=== PATIENT | male | born 1960 | race Caucasian/White ===

== ENCOUNTER 2024-01-22 09:02 | Outpatient (REF) | payer BC, SELFPAY ==
[2024-01-22 09:18] LABS: MANUAL DIFF FLAG NO
[2024-01-22 09:22] LABS: Basophils Absolute Auto 0.1 X10*3/uL (0.0-0.2); Basophils Percent Auto 0.8 % (0-2); Eosinophils Absolute Auto 0.1 X10*3/uL (0.0-0.4); Eosinophils Percent Auto 1.6 % (0-4); Imm Gran Abs Auto 0.03 X10*3/uL (0.00-0.03); Imm Gran Pct Auto 0.4 % (0.0-0.4); Lymphocytes Absolute Auto 2.2 X10*3/uL (1.2-4.9); Lymphocytes Percent Auto 26.7 % (20-40); Mean Corpuscular HGB Conc 34.5 g/dl (31.0-36.0); Mean Corpuscular Hemoglobin 32.3 pg (27.0-33.0); Mean Corpuscular Volume 93.5 fL (80.0-98.0); Mean Platelet Volume 9.1 fL (9.4-12.4); Monocytes Absolute Auto 0.9 X10*3/uL (0.1-1.2); Monocytes Percent Auto 10.4 % (2-11); Neutrophils Percent Auto 60.1 % (45-73); Platelet Count 209 X10*3/uL (160-400); Red Blood Count 6.26 X10*6/uL (4.60-5.80); Red Cell Distribution Width 13.8 % (11.0-16.0); White Blood Count 8.3 X10*3/uL (4.8-10.8)
[2024-01-22 09:36] LABS: Hematocrit 58.5 % (42.0-52.0); Hemoglobin 20.2 g/dl (14.0-18.0)
[2024-01-22 10:06] LABS: Anion Gap 14 (12-20); Blood Urea Nitrogen 17 mg/dL (9-16); Calcium 9.8 mg/dL (8.4-10.2); Carbon Dioxide 24 mmol/L (22-29); Chloride 103 mmol/L (96-108); Estimated Glomerular Filt Rate > 60; Glucose Random 153 mg/dL (60-115); Potassium 3.8 mmol/L (3.3-5.1); Sodium 137 mmol/L (135-145)
== END 2024-01-22 09:03 | disposition home or self-care (01) ==
LOC: HO.BBR 09:02
PROVIDERS: PCP Internal Medicine; Visit Provider Internal Medicine
DX: D45 Polycythemia vera (principal)
CPT/HCPCS: 36415; 80048; 85014; 85018; 85025; 99195

== ENCOUNTER 2024-04-22 08:52 | Outpatient (REF) | payer BC, SELFPAY ==
[2024-04-22 09:12] LABS: MANUAL DIFF FLAG NO
[2024-04-22 09:15] LABS: Basophils Percent Auto 0.5 % (0-2); Eosinophils Absolute Auto 0.2 X10*3/uL (0.0-0.4); Eosinophils Percent Auto 2.6 % (0-4); Hematocrit 48.4 % (42.0-52.0); Hemoglobin 17.2 g/dl (14.0-18.0); Imm Gran Abs Auto 0.01 X10*3/uL (0.00-0.03); Imm Gran Pct Auto 0.2 % (0.0-0.4); Lymphocytes Absolute Auto 2.2 X10*3/uL (1.2-4.9); Lymphocytes Percent Auto 35.8 % (20-40); Mean Corpuscular HGB Conc 35.5 g/dl (31.0-36.0); Mean Corpuscular Hemoglobin 33.1 pg (27.0-33.0); Mean Corpuscular Volume 93.1 fL (80.0-98.0); Mean Platelet Volume 8.6 fL (9.4-12.4); Monocytes Absolute Auto 0.6 X10*3/uL (0.1-1.2); Monocytes Percent Auto 9.9 % (2-11); Neutrophils Absolute Auto 3.1 x10*3/uL (2.0-8.3); Platelet Count 194 X10*3/uL (160-400)
[2024-04-22 09:46] LABS: Anion Gap 13 (12-20); Blood Urea Nitrogen 25 mg/dL (9-16); Calcium 9.6 mg/dL (8.4-10.2); Carbon Dioxide 25 mmol/L (22-29); Chloride 107 mmol/L (96-108); Estimated Glomerular Filt Rate > 60; Glucose Random 103 mg/dL (60-115); Potassium 3.8 mmol/L (3.3-5.1); Sodium 141 mmol/L (135-145)
== END 2024-04-22 08:53 | disposition home or self-care (01) ==
LOC: HO.BBR 08:52
PROVIDERS: PCP Internal Medicine; Visit Provider Internal Medicine
DX: D45 Polycythemia vera (principal)
CPT/HCPCS: 36415; 80048; 85014; 85018; 85025; 99195

== ENCOUNTER 2024-07-29 09:08 | Outpatient (REF) | payer BC, SELFPAY ==
[2024-07-29 09:21] LABS: MANUAL DIFF FLAG NO
[2024-07-29 09:24] LABS: Basophils Percent Auto 0.5 % (0-2); Eosinophils Absolute Auto 0.2 X10*3/uL (0.0-0.4); Eosinophils Percent Auto 2.6 % (0-4); Hematocrit 47.1 % (42.0-52.0); Hemoglobin 16.9 g/dl (14.0-18.0); Imm Gran Abs Auto 0.02 X10*3/uL (0.00-0.03); Imm Gran Pct Auto 0.3 % (0.0-0.4); Lymphocytes Percent Auto 33.2 % (20-40); Mean Corpuscular HGB Conc 35.9 g/dl (31.0-36.0); Mean Corpuscular Hemoglobin 35.1 pg (27.0-33.0); Mean Corpuscular Volume 97.9 fL (80.0-98.0); Mean Platelet Volume 8.7 fL (9.4-12.4); Monocytes Absolute Auto 0.5 X10*3/uL (0.1-1.2); Monocytes Percent Auto 8.3 % (2-11); Neutrophils Absolute Auto 3.4 x10*3/uL (2.0-8.3); Neutrophils Percent Auto 55.1 % (45-73); Platelet Count 217 X10*3/uL (160-400); Red Blood Count 4.81 X10*6/uL (4.60-5.80); Red Cell Distribution Width 11.4 % (11.0-16.0); White Blood Count 6.1 X10*3/uL (4.8-10.8)
[2024-07-29 09:49] LABS: Anion Gap 12 (12-20); Blood Urea Nitrogen 19 mg/dL (9-16); Calcium 9.2 mg/dL (8.4-10.2); Carbon Dioxide 24 mmol/L (22-29); Chloride 106 mmol/L (96-108); Estimated Glomerular Filt Rate > 60; Glucose Random 196 mg/dL (60-115); Sodium 138 mmol/L (135-145)
== END 2024-07-29 09:09 | disposition home or self-care (01) ==
LOC: HO.BBR 09:08
PROVIDERS: Internal Medicine; PCP Internal Medicine
DX: D45 Polycythemia vera (principal)
CPT/HCPCS: 36415; 80048; 85025; 99195

== ENCOUNTER 2024-11-04 08:53 | Outpatient (REF) | payer BC, SELFPAY ==
[2024-11-04 09:05] LABS: MANUAL DIFF FLAG NO
[2024-11-04 09:07] LABS: Basophils Percent Auto 0.6 % (0-2); Eosinophils Absolute Auto 0.3 X10*3/uL (0.0-0.4); Eosinophils Percent Auto 4.3 % (0-4); Hematocrit 47.8 % (42.0-52.0); Hemoglobin 17.3 g/dl (14.0-18.0); Imm Gran Abs Auto 0.01 X10*3/uL (0.00-0.03); Imm Gran Pct Auto 0.2 % (0.0-0.4); Lymphocytes Absolute Auto 2.6 X10*3/uL (1.2-4.9); Lymphocytes Percent Auto 38.9 % (20-40); Mean Corpuscular HGB Conc 36.2 g/dl (31.0-36.0); Mean Corpuscular Hemoglobin 34.1 pg (27.0-33.0); Mean Corpuscular Volume 94.1 fL (80.0-98.0); Mean Platelet Volume 8.8 fL (9.4-12.4); Monocytes Absolute Auto 0.7 X10*3/uL (0.1-1.2); Monocytes Percent Auto 9.9 % (2-11); Neutrophils Percent Auto 46.1 % (45-73); Platelet Count 228 X10*3/uL (160-400); Red Blood Count 5.08 X10*6/uL (4.60-5.80); Red Cell Distribution Width 11.7 % (11.0-16.0); White Blood Count 6.6 X10*3/uL (4.8-10.8)
--- OUTSIDE RECORDS SUMMARY | 2024-11-04 09:14 | XMS_ITS ---
Author Organization [facility] Address [address] [place] [address] Care Team Providers Care Revenue Field Auditor Name Role Phone KAMALA ZIEGLER Primary Care Provider ESTELITA FRANCO Unavailable [phone] REASON FOR VISIT calcium scoring results Encounters Encounter Location Date Provider Diagnosis [address] [facility] [address] [place] [address] 10/07/2024 ESTELITA FRANCO PLAN OF TREATMENT Next Appt Details Provider Name:ESTELITA FRANCO, 12/08/2024 03:15:00 PM, [address], [address], [place], [address], Progress Notes * DANIELLE LOUIS FDOB:[birth year] (63 yo M)Acc No.[id number]:10/07/2024 Patient:??DANIELLE LOUIS :1960?Age:63 Y?Sex:Yessy montgomery Address:[address] [place] [address] * true * Date:??
--- OUTSIDE RECORDS SUMMARY | 2024-11-04 09:14 | XMS_ITS | Patient Health Record ---
Author Organization [facility] Address [address] [place] [address] Care Team Providers Care Transplant Rn Name Role Phone KAMALA PHOENIX Primary Care Provider [phone] YOLETTE FRANCOEN Unavailable [phone] LEYLA BAPTISTE Unavailable [phone] ALLERGIES No Known Allergies RESULTS Component Value Reference Range Notes CBC With Differential/Platel [id number] Reviewed date:02/27/2024 09:11:58 AM Interpretation: Performing Lab:[facility] [place], [address] [place] [address], [place], Phone - [phone], Director - Rebecca Notes/Report: WBC 6.9 3.4-10.8 x10E3/uL RBC 6.15 4.14-5.80 x10E6/uL Hemoglobin 19.1 13.0-17.7 g/dL Hematocrit 58.5 37.5-51.0 % MCV 95 79-97 fL MCH 31.1 26.6-33.0 pg MCHC 32.6 31.5-35.7 g/dL RDW 14.2 11.6-15.4 % Platelets 235 150-450 x10E3/uL Neutrophils 57 Not Estab. % Lymphs 30 Not Estab. % Monocytes 11 Not Estab. % Eos 2 Not Estab. % Basos 0 Not Estab. % Immature Cells Neutrophils (Absolute) 3.9 1.4-7.0 x10E3/uL Lymphs (Absolute) 2.1 0.7-3.1 x10E3/uL Monocytes(Absolute) 0.8 0.1-0.9 x10E3/uL Eos (Absolute) 0.2 0.0-0.4 x10E3/uL Baso (Absolute) 0.0 0.0-0.2 x10E3/uL Immature Granulocytes 0 Not Estab. % Immature Grans (Abs) 0.0 0.0-0.1 x10E3/uL NRBC Hematology Comments: Testosterone, Total, LC/MS-0 [id number] Reviewed date:02/27/2024 08:56:27 AM Interpretation: Performing Lab:[facility] [place], [address] [facility], Phone - [phone], Director - MDJodry Notes/Report: Testosterone, Total, LC/MS TNP T est not performed. Duplicate tests ordered. Testosterone Free MS/Dialysi [id number] Reviewed date:02/27/2024 09:11:58 AM Interpretation: Performing Lab:[facility] [place], [address] [facility], [place], Phone - [phone], Director - MDJodry Notes/Report: Testosterone, Total 981 This test was developed and its performance characteristics determined by [facility]. It has not been cleared or approved by the Food and Drug Administration. Reference Range: Adult Males >18 years 264 - 916 This [facility] LC/MS-MS method is currently certified by the CDC Hormone Standardization Program (HoST). Adult male reference interval is based on a population of healthy nonobese males (BMI <30) between 19 and 39 years old. Marilyn et.al. JCEM 2017,102;8841-9705 PMID: [id number]. % Free Testosterone (Dialysis) 2.2 This test was developed and its performance characteristics determined by [facility]. It has not been cleared or approved by the Food and Drug Administration. Reference Range: Adult Males: 1.5 - 3.2 Free Testosterone, Serum 216 Reference Range: Adult Males: 52 - 280 REASON FOR REFERRAL No Information MEDICATIONS Medication SIG (Take, Route, Frequency, Duration) Notes Start Date End Date Status cloNIDine HCl 0.1 MG 1 tablet Orally twi ce a day for 90 days 03/08/2024 Active Eszopiclone 2 MG 1 tablet immediately before bedtime Orally at bedtime for 90 days 10/24/2024 Active Fluticasone Propionate 50 MCG/ACT 1 spray in each nostril Nasally Once a day Active LORazepam 0.5 MG 1 tablet Orally Once a day prn for 30 days 06/15/2024 Active CeleBREX 200 MG 1 capsule with food Orally Once a day Active valACYclovir HCl 1 GM TAKE 1 TABLET BY M OUTH EVERY DAY for 90 Active Fluvastatin Sodium ER 80 MG TAKE 1 TABLET BY MOUTH EVERY DAY IN THE EVENING for 90 Active Tadalafil 20 MG TAKE 1 TABLET BY GEORGETTE TH ONCE A DAY NEEDED FOR SEX X 30 DAYS for 30 Active Meloxicam 15 MG 1 tablet Orally Once a day Not-Taking Fish Oil 500 MG 1 capsule Orally Twi ce a day for 30 day(s) Active Montelukast Sodium 10 MG TAKE 1 TABLET B Y MOUTH EVERY DAY IN THE EVENING for 90 Active Aspir-81 81 MG 1 tablet Orally Once a day for 30 day(s) Active Tamsulosin HCl 0.4 MG TAKE 1 CAPSULE BY MOUTH EVERY DAY for 90 Active Multi For Him - as directed Orally Active Pantoprazole Sodium 40 MG TAKE 1 TABLET BY MOUTH EVERY DAY for 90 Active Losartan Potassium 100 MG 1 tablet Orall y Once a day for 90 days 09/21/2024 Active amLODIPine Besylate 10 MG 1 tablet Orall y Once a day for 90 days 03/01/2024 Active Losartan Potassium-HCTZ 100-12.5 MG 1 tablet Orally Once a day for 90 days 03/01/2024 Active Terbinafine Not-Taki ng IMMUNIZATIONS Vaccine Route Administration Date Status Comme nts Flu vaccine no Preserv 3 and > IM Intramuscular 08/26/2022 Administered Flu vaccine no Preserv 3 and > IM Intramuscular 06/14/2024 Administered influenza IM Intramuscular 08/03/2018 Administered influenza IM Intramuscular 05/30/2020 Administered SOCIAL HISTORY Tobacco Use: Social History Observation Description Date Details (start date - stop date) Never Smoker NA - NA Sex Assigned At : Social History Observation Description Sex Assigned At Unknown Tobacco Use/Smoking Question Answer Notes Are you a nonsmoker Section Notes: 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.does not smoke or abuse alcohol 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.does not smoke or abuse alcohol 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.does not smoke or abuse alcohol 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.does not smoke or abuse alcohol 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.does not smoke or abuse alcohol 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.does not smoke or abuse alcohol 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.does not smoke or abuse alcohol 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.does not smoke or abuse alcohol 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.does not smoke or abuse alcohol 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.does not smoke or abuse alcohol 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.does not smoke or abuse alcohol 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.does not smoke or abuse alcohol 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.does not smoke or abuse alcohol 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.does not smoke or abuse alcohol 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.does not smoke or abuse alcohol 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.does not smoke or abuse alcohol 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.does not smoke or abuse alcohol 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.does not smoke or abuse alcohol 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.does not smoke or abuse alcohol 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.does not smoke or abuse alcohol 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.does not smoke or abuse alcohol 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.does not smoke or abuse alcohol 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.does not smoke or abuse alcohol 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.does not smoke or abuse alcohol 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.does not smoke or abuse alcohol PROBLEMS Problem Type ICD Code Onset Dates Problem Status W/U Status Risk SNOMED Code Notes Problem Polycythemia vera (D45) Active confirmed Polycythemia ve ra (003024406) Problem Testicular hypofunction (E29.1) Active confirmed 823487730 Problem Vitamin D deficiency, unspecified (E55.9) Active confirmed Vitamin D deficiency (78739744) Problem Hyperlipidemia, unspecified (E78.5) Active confirmed Hyperlipidemia (80740134) Problem Primary insomnia (F51.01) Active confirmed 5443528 Problem Other insomnia (G47.09) Active confirmed 128687310 Problem Essential (primary) hypertension (I10) Active confirmed Essential hypertension (30058481) Problem Allergic rhinitis, unspecified (J30.9) Active confirmed Allergic rhinit is (54097412) Problem Chronic rhinitis (J31.0) Active confirmed 955494046 Problem Chronic sinusitis, unspecified (J32.9) Active confirmed 38277451 Problem Encounter for general adult medical examination without abnormal findings (Z00.00) Active confirmed 407466769 Problem Encounter for screening for malignant neoplasm of prostate (Z12.5) Active confirmed 406143398 Problem Encounter for screening for malignant neoplasm of skin (Z12.83) Active confirmed 977155613 Problem Encounter for screening for lipoid disorders (Z13.220) Active confirmed Lipid screening (546759025) Problem Adult general medical exam (Z00.00) Active confirmed Adult health examination (607556365) Problem Vitamin D deficiency (E55.9) Active confirmed Vitamin D deficiency (88014355) Problem Hypogonadism male (E29.1) Active confirmed 91189006 Problem Diabetes mellitus screening (Z13.1) Active confirmed Diabetes mellit us screening (818073246) Problem Obstructive sleep apnea (G47.33) Active confirmed 51271497 Problem Encounter for screening for endocrine disorder (Z13.29) Active confirmed Endocrine/metab ol ic screening (234211916) Problem Encounter for prostate cancer screening (Z12.5) Active confirmed Screening for malignant neoplasm of prostate (435668334) Problem Right bundle branch block (RBBB) (I45.10) Active confirmed 27570493 VITAL SIGNS Heart Rate 67 /min 09/21/2024 Oximetry 97 % 09/21/2024 Blood pressure diastolic 82 mm Hg 09/21/2024 Height 79 in 09/21/2024 Blood pressure systolic 140 mm Hg 09/21/2024 Weight 279 lbs 09/21/2024 BMI 31.43 kg/m2 09/21/2024 Encounters Encounter Location Date Provider Diagnosis [facility] [address] [place] [address] 12/15/[address] [facility] [address] [place] [address] 02/24/[address] [facility] [address] [place] [address] 02/25/[address] [facility] [address] [place] [address] 12/25/2023 LEYAL EMILE Essential (primary) hypertension I10 ; Testicular hypofunction E29.1 ; Chronic rhinitis J31.0 ; Other insomnia G47.09 and Elevated hematocrit R71.[address] [facility] [address] [place] [address] 01/01/2024 LEYLA EMILE Essential (primary) hypertension I10 ; Testicular hypofunction E29.1 ; Chronic rhinitis J31.0 ; Other insomnia G47.09 and Elevated hematocrit R71.8 [place] [address] [address] 03/01/2024 TALCHAVA PHOENIX Hypertensive crisis I16.9 ; Obstructive sleep apnea G47.33 ; Prediabetes R73.03 and Other insomnia G47.09 [place] [address] [address] 03/08/2024 TALCHAVA PHOENIX Essential (primary) hypertension I10 ; Hyperlipidemia, unspecified E78.5 ; Prediabetes R73.03 and Chronic pain syndrome G89.4 [place] [address] [address] 04/12/2024 TALCHAVA PHOENIX Hyperlipidemia, unspecified E78.5 ; Prediabetes R73.03 ; Essential (primary) hypertension I10 and Achilles tendinitis, right leg M76.[address] [facility] [address] [facility] [address] [place] [address] 06/14/2024 KAMALA PHOENIX Hyperlipidemia, unspecified E78.5 ; Essential (primary) hypertension I10 ; Encounter for immunization Z23 ; Achilles tendinitis, left leg M76.62 ; Polycythemia vera D45 ; Hypogonadism male E29.1 and Sleep concern Z76.[address] [facility] [address] [facility] [address] [place] [address] 09/21/2024 ESTELITA FRANCO Essential (primary) hypertension I10 ; Testicular hypofunction E29.1 ; Polycythemia vera D45 ; Obstructive sleep apnea G47.33 and Right bundle branch block (RBBB) I45.[address] [facility] [address] [facility] [address] [place] [address] 12/23/2023 LEYLA EMILE [address] [place], [place] 01/01/2024 YOMICHAVA PHOENIX [address] [place] [address] 01/04/[address] [facility] [address] [place] [address] 01/04/[address] [address] [facility] [address] [facility] [address] [place] [address] 01/15/[address] [facility] [address] [facility] [address] [facility] [address] [place] [address] 01/27/[address] [facility] [address] [facility] [address] [place] [address] 02/24/2024 LEYLA EMILE [address] [place] [address] 02/27/[address] [facility] [address] [place] [address] 03/01/[address] [facility] [address] [address] [place] [address] 03/01/[address] [facility] [address] [place] [address] 03/08/2024 TALAL PHOENIX [address] [place] [address] 03/30/2024 TALAL PHOENIX [facility] [address] [place] [address] 04/15/[address] [facility] [address] [facility] [address] [place] [address] 04/18/[address] [facility] [address] [facility] [address] [address] [place] [address] 04/18/2024 TALAL PHOENIX [address] [place] [address] 05/03/2024 TALAL PHOENIX [address] [place] [address] 05/03/[address] [facility] [address] [facility] [address] [place] [address] 06/15/2024 TALAL PHOENIX [address] [place] [address] 07/25/2024 TALAL PHOENIX [address] [place] [address] 10/07/2024 [facility] [address] [place] [address] 10/24/2024 [facility] [address] [place] [address] 10/24/2024 [facility] [facility] [address] [place] [address] 03/04/2024 TALAL PHOENIX ASSESSMENTS Encounter Date Diagnosis Assessment Notes Treatment Notes Treatment Clinical Notes Section Notes 12/25/2023 Testicular hypofunction (ICD-10 - E29.1) Danielle is a 8-year-old male who presents the office for Follow-up via telehealth with questions regarding blood pressure medication. #Testicular hypofunction: Patient getting testosterone from Dr. Montana Perea. Patient taking half a cc twice a week. Patient's testosterone was elevated at 1 point, with elevated hemoglobin and hematocrit. Patient did stop testosterone for a few weeks for his knee replacement, but has now been on it for about a month and a half again. Hemoglobin and hematocrit continue to be elevated. Educated on the risk factors associated with continued testosterone use including clotting etc. patient has been getting 6-month supplies of testosterone at a time. Admits to using Anivar, that he purchased from a gym partner, but is no longer using. But patient is not interested in discontinuation of testosterone. Patient did see Dr. Jos Phoenix, who sent him to Dr. Moe for pancytopenia, Dr. Moe recommended blood draws throughout the year. Patient did try getting phlebotomy but his blood pressure spiked to high so he was started on lorazepam to use as needed and he has not completed phlebotomy yet. Patient is taking aspirin 81 mg. Educated on getting blood work prior to next visit.Patient canceled recent visit. States that he needs to get an order from Dr. Avelina Howell for phlebotomy prior to getting his blood work here. That scheduled for January 03 at 330, will follow-up afterwards. EKG completed prior to preop in June, Patient does have a history of right bundle branch block. #Patient has a history of chronic rhinitis: Recently had nasal septal surgery, with some improvement. #Doing well post left knee surgery, going to physical therapy #Chronic pain: Taking gabapentin 600 mg at night #Patient taking fish oil, low HDL, fluvastatin 80 mg #Hypertension: Taking amlodipine BenzePril. Blood pressure elevated last visit 158/98, increase amlodipine to 10 mg, BenzePril 40 mg. Patient states that since increasing, he has been having more difficulty sleeping, dry mouth, just feels off. Will discontinue medication and switch over to losartan 50 mg. Follow-up in 1 week for blood pressure check, take blood pressures at home. Educated on emergency department criteria/criteria to call the office #BPH: Taking tamsulosin 0.4 mg, tadalafil 20 mg #Anxiety: Takes lorazepam 0.5 mg.Does not need refill, taking as needed, but is admitting to increased blood pressure, more anxiety, and difficulty sleeping. Plans to take more at night. #GERD: Taking pantoprazole 40 mg #Insomnia: Taking Lunesta 2 mg, Melatonin. Still admitting to difficulty sleeping. Will trial hydroxyzine. Educated on proper use, side effects. Patient also takes lorazepam as needed, scheduled for sleep apnea testing On 07 January. #Onychomycosis of bilateral toenails, following with podiatry for cleaning. Using topicals without much improvement. Patient on terbinafine, notes that it is working. On it for 3 months. This is be done by podiatry. Mindful of liver enzymes. #Patient has a history of tanning, recommended routine dermatology follow-up for skin cancer check. Follow-up next Thursday for blood pressure check, sooner as needed. In the meantime working with Dr. Kinsey for phlebotomy/blood draws January 03, and sleep apnea testing on January 07. Patient is seen today via telehealth agreement, with consent of patient In light of current COVID -19 Pandemic I used the following telehealth technology (telephone/[employer]/s [employer]) during this visit This encounter is appropriate and reasonable under the circumstances given the patient's particular presentation. The patient has been advised of the potential risks and limitations of this mode of treatment Including but not limited to the absence of in person physical examination,and has agreed to be treated in a remote fashion in spite of this. Any and all patient questions have been answered. The patient also has been advised to contact this office for worsening conditions or problems and seek medical treatment and/or call 911 if the patient deems either necessary All quetsions answered to patients satisfaction. Patient verbalized understanding of diagnosis and treatments explained. To call sooner prior to next visit it any questions/concerns arise. Case discussed with collaborating physician Arturo Phoenix who reviewed the assessment and plan. Chart, medications, labs, vital signs reviewed. Dictation was accomplished with the use of [employer] voice recognition software, prone to medical misidentifications and grammatical errors. This is unintentional and the practitioner does try to identify and correct these, but some could still be present. Please do not hesitate to contact practitioner for clarification. 12/25/2023 Essential (primary) hypertension (ICD-10 - I10) Danielle is a 8-year-old male who presents the office for Follow-up via telehealth with questions regarding blood pressure medication. #Testicular hypofunction: Patient getting testosterone from Dr. Montana Perea. Patient taking half a cc twice a week. Patient's testosterone was elevated at 1 point, with elevated hemoglobin and hematocrit. Patient did stop testosterone for a few weeks for his knee replacement, but has now been on it for about a month and a half again. Hemoglobin and hematocrit continue to be elevated. Educated on the risk factors associated with continued testosterone use including clotting etc. patient has been getting 6-month supplies of testosterone at a time. Admits to using Anivar, that he purchased from a gym partner, but is no longer using. But patient is not interested in discontinuation of testosterone. Patient did see Dr. Jos Phoenix, who sent him to Dr. Moe for pancytopenia, Dr. Moe recommended blood draws throughout the year. Patient did try getting phlebotomy but his blood pressure spiked to high so he was started on lorazepam to use as needed and he has not completed phlebotomy yet. Patient is taking aspirin 81 mg. Educated on getting blood work prior to next visit.Patient canceled recent visit. States that he needs to get an order from Dr. Avelina Howell for phlebotomy prior to getting his blood work here. That scheduled for January 03 at 330, will follow-up afterwards. EKG completed prior to preop in June, Patient does have a history of right bundle branch block. #Patient has a history of chronic rhinitis: Recently had nasal septal surgery, with some improvement. #Doing well post left knee surgery, going to physical therapy #Chronic pain: Taking gabapentin 600 mg at night #Patient taking fish oil, low HDL, fluvastatin 80 mg #Hypertension: Taking amlodipine BenzePril. Blood pressure elevated last visit 158/98, increase amlodipine to 10 mg, BenzePril 40 mg. Patient states that since increasing, he has been having more difficulty sleeping, dry mouth, just feels off. Will discontinue medication and switch over to losartan 50 mg. Follow-up in 1 week for blood pressure check, take blood pressures at home. Educated on emergency department criteria/criteria to call the office #BPH: Taking tamsulosin 0.4 mg, tadalafil 20 mg #Anxiety: Takes lorazepam 0.5 mg.Does not need refill, taking as needed, but is admitting to increased blood pressure, more anxiety, and difficulty sleeping. Plans to take more at night. #GERD: Taking pantoprazole 40 mg #Insomnia: Taking Lunesta 2 mg, Melatonin. Still admitting to difficulty sleeping. Will trial hydroxyzine. Educated on proper use, side effects. Patient also takes lorazepam as needed, scheduled for sleep apnea testing On 07 January. #Onychomycosis of bilateral toenails, following with podiatry for cleaning. Using topicals without much improvement. Patient on terbinafine, notes that it is working. On it for 3 months. This is be done by podiatry. Mindful of liver enzymes. #Patient has a history of tanning, recommended routine dermatology follow-up for skin cancer check. Follow-up next Thursday for blood pressure check, sooner as needed. In the meantime working with Dr. Kinsey for phlebotomy/blood draws January 03, and sleep apnea testing on January 07. Patient is seen today via telehealth agreement, with consent of patient In light of current COVID -19 Pandemic I used the following telehealth technology (telephone/[employer]/s [employer]) during this visit This encounter is appropriate and reasonable under the circumstances given the patient's particular presentation. The patient has been advised of the potential risks and limitations of this mode of treatment Including but not limited to the absence of in person physical examination,and has agreed to be treated in a remote fashion in spite of this. Any and all patient questions have been answered. The patient also has been advised to contact this office for worsening conditions or problems and seek medical treatment and/or call 911 if the patient deems either necessary All quetsions answered to patients satisfaction. Patient verbalized understanding of diagnosis and treatments explained. To call sooner prior to next visit it any questions/concerns arise. Case discussed with collaborating physician Arturo Phoenix who reviewed the assessment and plan. Chart, medications, labs, vital signs reviewed. Dictation was accomplished with the use of [employer] voice recognition software, prone to medical misidentifications and grammatical errors. This is unintentional and the practitioner does try to identify and correct these, but some could still be present. Please do not hesitate to contact practitioner for clarification. 01/01/2024 Essential (primary) hypertension (ICD-10 - I10) Danielle is a 8-year-old male who presents the office for Follow-up . . Patient is here with his today. #Testicular hypofunction: Patient getting testosterone from Dr. Montana Perea. Patient taking half a cc twice a week. Patient's testosterone was elevated at 1 point, with elevated hemoglobin and hematocrit. Patient did stop testosterone for a few weeks for his knee replacement, but has now been on it for about a month and a half again. Hemoglobin and hematocrit continue to be elevated. Educated on the risk factors associated with continued testosterone use including clotting etc. patient has been getting 6-month supplies of testosterone at a time. Admits to using [employer], that he purchased from a gym partner, but is no longer using. But patient is not interested in discontinuation of testosterone. Patient did see Dr. Jos Phoenix, who sent him to Dr. Moe for pancytopenia, Dr. Moe recommended blood draws throughout the year. Patient did try getting phlebotomy but his blood pressure spiked to high so he was started on lorazepam to use as needed and he has not completed phlebotomy yet. Patient is taking aspirin 81 mg. Patient continues to not get blood work, waiting for an order from Dr. Avelina Howell. Discussed the importance of phlebotomy. Scheduled with him January 03 at 330. EKG completed prior to preop in June, Patient does have a history of right bundle branch block. #Patient has a history of chronic rhinitis: Recently had nasal septal surgery, with some improvement. #Doing well post left knee surgery, going to physical therapy #Chronic pain: Taking gabapentin 600 mg at night prn #Patient taking fish oil, low HDL, fluvastatin 80 mg #Hypertension: Patient was having dry mouth, elevated blood pressure 158/98, was on amlodipine 10, BenzePrl 40. Medication was discontinued, and losartan 50 mg was started. Patient's been taking it with compliance, no side effects. Blood pressure stable/improved in office today 138/88. Does admit to improved headaches. Did have hydrochlorothiazide at home from a previous prescription that was discontinued. States he took it x 1 dose because he felt like he was swollen . No swelling on examination today. Patient states that he was diuresed, and peed a lot of urine at that time.Educate on the importance of taking medications as prescribed. Patient is using blood pressure monitor at home, which is causing elevated blood pressure readings, but the cuff is too small. Educated to get a larger blood pressure cuff on [employer]. #BPH: Taking tamsulosin 0.4 mg, tadalafil 20 mg #Anxiety: Takes lorazepam 0.5 mg.[facility] sent in October. Admits to increased anxiety, more difficulty sleeping.Patient admits to occasionally taking 2 tablets of lorazepam. Discussed that this is against contract, and he needs to take medications as prescribed. #GERD: Taking pantoprazole 40 mg #Insomnia: Taking Lunesta 2 mg, Melatonin. Also taking lorazepam 0.5 mg As well as hydroxyzine. Educated on proper use, side effects. Scheduled for sleep apnea testing on January 07. Discussed that we cannot alter sleep regimen at this time, and patient is on multiple controlled substances. He does admit to sometimes taking 2 pills of lorazepam. Discussed that he needs to take medications as prescribed, and if he fails to do so, we could not refill prescriptions #Onychomycosis of bilateral toenails, following with podiatry for cleaning. Using topicals without much improvement. Patient on terbinafine, notes that it is working. On it for 3 months. This is be done by podiatry. Mindful of liver enzymes. #Patient has a history of tanning, recommended routine dermatology follow-up for skin cancer check. Follow-up in 2 months, will call with concerns in the meantime. Patient to get phlebotomy in the meantime, and sleep apnea testing. All quetsions answered to patients satisfaction. Patient verbalized understanding of diagnosis and treatments explained. To call sooner prior to next visit it any questions/concerns arise. Case discussed with collaborating physician Arturo Phoenix who reviewed the assessment and plan. Chart, medications, labs, vital signs reviewed. Dictation was accomplished with the use of [employer] voice recognition software, prone to medical misidentifications and grammatical errors. This is unintentional and the practitioner does try to identify and correct these, but some could still be present. Please do not hesitate to contact practitioner for clarification. 03/01/2024 Obstructive sleep apnea (ICD-10 - G47.33) This 63-year-old male with multiple medical problems which is a complicated case given the use or overuse of testosterone hypertensive crisis untreated sleep apnea. Patient has also used steroids which were not prescribed by a physician and we did discuss that at length. We set up some boundaries and ground rules on how to use medicines. We collaborated with his testosterone prescribing provider. A plan of care as outlined above including management of hypertension and sleep apnea and follow-up in 1 week 03/01/2024 Hypertensive crisis (ICD-10 - I16.9) This 63-year-old male with multiple medical problems which is a complicated case given the use or overuse of testosterone hypertensive crisis untreated sleep apnea. Patient has also used steroids which were not prescribed by a physician and we did discuss that at length. We set up some boundaries and ground rules on how to use medicines. We collaborated with his testosterone prescribing provider. A plan of care as outlined above including management of hypertension and sleep apnea and follow-up in 1 week 03/08/2024 Hyperlipidemia, unspecified (ICD-10 - E78.5) Patient has been diagnosed with elevated blood pressure discussed that blood pressure values can vary with different measurements. We should go by mean blood pressure values.. Discussed the role of ambulatory blood pressure monitoring. Discussed the role of Qardio blood pressure device system that we have and can help with remote blood pressure monitoring as long as it is covered by insurance and can be measured remotely. Discussed different blood pressure medicines including angiotensin receptor blockers like losartan, calcium channel blockers like amlodipine based beta-blockers like, metoprolol and bisoprolol, diuretics like hydrochlorothiazide,. Spironolactone and furosemide. Discussed the role of diet elimination of refined carbohydrates processed sugars alcohol, standard [place] diet, chips and fast food, role of home cooking, elimination of white bread and high fructose corn syrup and cereals. Discussed wholesome eating, regular exercise, step count and walking to get 10,000 steps a day when possible. Keeping a log of blood pressure and having a physician or physician typewriter assembler titrate blood pressure based on treatment protocols I I have added clonidine to help with anxiety management and also to help with blood pressure management. 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 We should go by mean blood pressure values.. Discussed the role of ambulatory blood pressure monitoring. Discussed the role of Qardio blood pressure device system that we have and can help with remote blood pressure monitoring as long as it is covered by insurance and can be measured remotely. Discussed different blood pressure medicines including angiotensin receptor blockers like losartan, calcium channel blockers like amlodipine based beta-blockers like, metoprolol and bisoprolol, diuretics like hydrochlorothiazide,. Spironolactone and furosemide. Discussed the role of diet elimination of refined carbohydrates processed sugars alcohol, standard [place] diet, chips and fast food, role of home cooking, elimination of white bread and high fructose corn syrup and cereals. Discussed wholesome eating, regular exercise, step count and walking to get 10,000 steps a day when possible. Keeping a log of blood pressure and having a physician or physician typewriter assembler titrate blood pressure based on treatment protocols I I have added clonidine to help with anxiety management and also to help with blood pressure management. 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 We should go by mean blood pressure values.. Discussed the role of ambulatory blood pressure monitoring. Discussed the role of Qardio blood pressure device system that we have and can help with remote blood pressure monitoring as long as it is covered by insurance and can be measured remotely. Discussed different blood pressure medicines including angiotensin receptor blockers like losartan, calcium channel blockers like amlodipine based beta-blockers like, metoprolol and bisoprolol, diuretics like hydrochlorothiazide,. Spironolactone and furosemide. Discussed the role of diet elimination of refined carbohydrates processed sugars alcohol, standard [place] diet, chips and fast food, role of home cooking, elimination of white bread and high fructose corn syrup and cereals. Discussed wholesome eating, regular exercise, step count and walking to get 10,000 steps a day when possible. Keeping a log of blood pressure and having a physician or physician typewriter assembler titrate blood pressure based on treatment protocols 04/12/2024 Prediabetes (ICD-10 - R73.03) Patient has been diagnosed with elevated blood pressure discussed that blood pressure values can vary with different measurements. We should go by mean blood pressure values.. Discussed the role of ambulatory blood pressure monitoring. Discussed the role of Qardio blood pressure device system that we have and can help with remote blood pressure monitoring as long as it is covered by insurance and can be measured remotely. Discussed different blood pressure medicines including angiotensin receptor blockers like losartan, calcium channel blockers like amlodipine based beta-blockers like, metoprolol and bisoprolol, diuretics like hydrochlorothiazide,. Spironolactone and furosemide. Discussed the role of diet elimination of refined carbohydrates processed sugars alcohol, standard [place] diet, chips and fast food, role of home cooking, elimination of white bread and high fructose corn syrup and cereals. Discussed wholesome eating, regular exercise, step count and walking to get 10,000 steps a day when possible. Keeping a log of blood pressure and having a physician or physician typewriter assembler titrate blood pressure based on treatment protocols 06/14/2024 Hyperlipidemia, unspecified (ICD-10 - E78.5) Hx of HTN - 118/90 today in office. Continue medication adherence with losartan/HCTZ, amlodipine, and clonidine. Hx of HLD - patient is adherent to statin therapy. Continue medication and healthy eating. Hx of achilles tendonitis - currently using celebrex, doing well. Continue tates stretching and doing light exercise. Hx polycythemia vera - follows-up with seismograph supervisor for phlebotomy. Last treatment was April, next is Jul.22. Uses lorazepam prior to phlebotomy due to anxiety. Continue regimen. Hx of trouble sleeping - Continue with eszopiclone and Relaxium OTC. Educated patient on sleep hygeine: dark room, white noise, creating a bedtime routine, no electronics before bed, only use bed for sleeping. Hx of hypogonadism - patient recently had to stop testosterone replacement due to hypertension. Currently on enclomiphene citrate 12.5mg x2 tabs once daily - prescribed by Dr. Pendleton at [facility]. Patient is most likely feeling more anxious and emotional d/t enclomiphene citrate. Plan at this time is to continue current regimen and follow-up with functional medicine, given emotional state, would recommend discontinuing medication. Continue exercise regimen as well as healthy eating. Flu shot given today. Patient is set to follow up 3 months. 06/14/2024 Essential (primary) hypertension (ICD-10 - I10) Hx of HTN - 118/90 today in office. Continue medication adherence with losartan/HCTZ, amlodipine, and clonidine. Hx of HLD - patient is adherent to statin therapy. Continue medication and healthy eating. Hx of achilles tendonitis - currently using celebrex, doing well. Continue tates stretching and doing light exercise. Hx polycythemia vera - follows-up with seismograph supervisor for phlebotomy. Last treatment was April, next is Jul.22. Uses lorazepam prior to phlebotomy due to anxiety. Continue regimen. Hx of trouble sleeping - Continue with eszopiclone and Relaxium OTC. Educated patient on sleep hygeine: dark room, white noise, creating a bedtime routine, no electronics before bed, only use bed for sleeping. Hx of hypogonadism - patient recently had to stop testosterone replacement due to hypertension. Currently on enclomiphene citrate 12.5mg x2 tabs once daily - prescribed by Dr. Pendleton at [facility]. Patient is most likely feeling more anxious and emotional d/t enclomiphene citrate. Plan at this time is to continue current regimen and follow-up with functional medicine, given emotional state, would recommend discontinuing medication. Continue exercise regimen as well as healthy eating. Flu shot given today. Patient is set to follow up 3 months. 09/21/2024 Testicular hypofunction (ICD-10 - E29.1) Most recent hemoglobin is downtrending He gets therapeutic draws at [facility] Will get updated comprehensive labs including CBC with differential Will get an echocardiogram given his history of RBBB and hypertension Will get a coronary calcium CT score as it has been 8 years Previous was 0 and clean in 2018 Losartan monotherapy along with amlodipine as well as clonidine I have instructed him to check his blood pressures at home closely and we will adjust if needed Of note, some information is being carried forward from prior records for informational purposes only and is being cited so that efficiency, safety and quality of the patient's care is not compromised This note was prepared using voice recognition software and direct typing Please excuse inadvertent clinical informaticist or typing errors, or uncorrected word substitutions Although every attempt has been made by the provider to proofread this document, occasional misspellings and typographical errors may still be present Due to the previous pandemic, and the use of personal protective equipment (PPE) This may decrease voice recognition accuracy Inadvertent clinical informaticist errors may occur 09/21/2024 Essential (primary) hypertension (ICD-10 - I10) Most recent hemoglobin is downtrending He gets therapeutic draws at [facility] Will get updated comprehensive labs including CBC with differential Will get an echocardiogram given his history of RBBB and hypertension Will get a coronary calcium CT score as it has been 8 years Previous was 0 and clean in 2018 Losartan monotherapy along with amlodipine as well as clonidine I have instructed him to check his blood pressures at home closely and we will adjust if needed Of note, some information is being carried forward from prior records for informational purposes only and is being cited so that efficiency, safety and quality of the patient's care is not compromised This note was prepared using voice recognition software and direct typing Please excuse inadvertent clinical informaticist or typing errors, or uncorrected word substitutions Although every attempt has been made by the provider to proofread this document, occasional misspellings and typographical errors may still be present Due to the previous pandemic, and the use of personal protective equipment (PPE) This may decrease voice recognition accuracy Inadvertent clinical informaticist errors may occur 09/21/2024 Polycythemia vera (ICD-10 - D45) Most recent hemoglobin is downtrending He gets therapeutic draws at [facility] Will get updated comprehensive labs including CBC with differential Will get an echocardiogram given his history of RBBB and hypertension Will get a coronary calcium CT score as it has been 8 years Previous was 0 and clean in 2018 Losartan monotherapy along with amlodipine as well as clonidine I have instructed him to check his blood pressures at home closely and we will adjust if needed Of note, some information is being carried forward from prior records for informational purposes only and is being cited so that efficiency, safety and quality of the patient's care is not compromised This note was prepared using voice recognition software and direct typing Please excuse inadvertent clinical informaticist or typing errors, or uncorrected word substitutions Although every attempt has been made by the provider to proofread this document, occasional misspellings and typographical errors may still be present Due to the previous pandemic, and the use of personal protective equipment (PPE) This may decrease voice recognition accuracy Inadvertent clinical informaticist errors may occur 06/14/2024 Achilles tendinitis, left leg (ICD-10 - M76.62) Hx of HTN - 118/90 today in office. Continue medication adherence with losartan/HCTZ, amlodipine, and clonidine. Hx of HLD - patient is adherent to statin therapy. Continue medication and healthy eating. Hx of achilles tendonitis - currently using celebrex, doing well. Continue tates stretching and doing light exercise. Hx polycythemia vera - follows-up with seismograph supervisor for phlebotomy. Last treatment was April, next is Jul.22. Uses lorazepam prior to phlebotomy due to anxiety. Continue regimen. Hx of trouble sleeping - Continue with eszopiclone and Relaxium OTC. Educated patient on sleep hygeine: dark room, white noise, creating a bedtime routine, no electronics before bed, only use bed for sleeping. Hx of hypogonadism - patient recently had to stop testosterone replacement due to hypertension. Currently on enclomiphene citrate 12.5mg x2 tabs once daily - prescribed by Dr. Pendleton at [facility]. Patient is most likely feeling more anxious and emotional d/t enclomiphene citrate. Plan at this time is to continue current regimen and follow-up with functional medicine, given emotional state, would recommend discontinuing medication. Continue exercise regimen as well as healthy eating. Flu shot given today. Patient is set to follow up 3 months. 06/14/2024 Encounter for immunization (ICD-10 - Z23) Hx of HTN - 118/90 today in office. Continue medication adherence with losartan/HCTZ, amlodipine, and clonidine. Hx of HLD - patient is adherent to statin therapy. Continue medication and healthy eating. Hx of achilles tendonitis - currently using celebrex, doing well. Continue tates stretching and doing light exercise. Hx polycythemia vera - follows-up with seismograph supervisor for phlebotomy. Last treatment was April, next is Jul.22. Uses lorazepam prior to phlebotomy due to anxiety. Continue regimen. Hx of trouble sleeping - Continue with eszopiclone and Relaxium OTC. Educated patient on sleep hygeine: dark room, white noise, creating a bedtime routine, no electronics before bed, only use bed for sleeping. Hx of hypogonadism - patient recently had to stop testosterone replacement due to hypertension. Currently on enclomiphene citrate 12.5mg x2 tabs once daily - prescribed by Dr. Pendleton at [facility]. Patient is most likely feeling more anxious and emotional d/t enclomiphene citrate. Plan at this time is to continue current regimen and follow-up with functional medicine, given emotional state, would recommend discontinuing medication. Continue exercise regimen as well as healthy eating. Flu shot given today. Patient is set to follow up 3 months. 04/12/2024 Essential (primary) hypertension (ICD-10 - I10) Patient has been diagnosed with elevated blood pressure discussed that blood pressure values can vary with different measurements. We should go by mean blood pressure values.. Discussed the role of ambulatory blood pressure monitoring. Discussed the role of Qardio blood pressure device system that we have and can help with remote blood pressure monitoring as long as it is covered by insurance and can be measured remotely. Discussed different blood pressure medicines including angiotensin receptor blockers like losartan, calcium channel blockers like amlodipine based beta-blockers like, metoprolol and bisoprolol, diuretics like hydrochlorothiazide,. Spironolactone and furosemide. Discussed the role of diet elimination of refined carbohydrates processed sugars alcohol, standard [place] diet, chips and fast food, role of home cooking, elimination of white bread and high fructose corn syrup and cereals. Discussed wholesome eating, regular exercise, step count and walking to get 10,000 steps a day when possible. Keeping a log of blood pressure and having a physician or physician typewriter assembler titrate blood pressure based on treatment protocols 03/08/2024 Prediabetes (ICD-10 - R73.03) Patient has been diagnosed with elevated blood pressure discussed that blood pressure values can vary with different measurements. We should go by mean blood pressure values.. Discussed the role of ambulatory blood pressure monitoring. Discussed the role of Qardio blood pressure device system that we have and can help with remote blood pressure monitoring as long as it is covered by insurance and can be measured remotely. Discussed different blood pressure medicines including angiotensin receptor blockers like losartan, calcium channel blockers like amlodipine based beta-blockers like, metoprolol and bisoprolol, diuretics like hydrochlorothiazide,. Spironolactone and furosemide. Discussed the role of diet elimination of refined carbohydrates processed sugars alcohol, standard [place] diet, chips and fast food, role of home cooking, elimination of white bread and high fructose corn syrup and cereals. Discussed wholesome eating, regular exercise, step count and walking to get 10,000 steps a day when possible. Keeping a log of blood pressure and having a physician or physician typewriter assembler titrate blood pressure based on treatment protocols I I have added clonidine to help with anxiety management and also to help with blood pressure management. 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 Patient has also used steroids which were not prescribed by a physician and we did discuss that at length. We set up some boundaries and ground rules on how to use medicines. We collaborated with his testosterone prescribing provider. A plan of care as outlined above including management of hypertension and sleep apnea and follow-up in 1 week 01/01/2024 Testicular hypofunction (ICD-10 - E29.1) Danielle is a 8-year-old male who presents the office for Follow-up . . Patient is here with his today. #Testicular hypofunction: Patient getting testosterone from Dr. Montana Perea. Patient taking half a cc twice a week. Patient's testosterone was elevated at 1 point, with elevated hemoglobin and hematocrit. Patient did stop testosterone for a few weeks for his knee replacement, but has now been on it for about a month and a half again. Hemoglobin and hematocrit continue to be elevated. Educated on the risk factors associated with continued testosterone use including clotting etc. patient has been getting 6-month supplies of testosterone at a time. Admits to using Anivar, that he purchased from a gym partner, but is no longer using. But patient is not interested in discontinuation of testosterone. Patient did see Dr. Jos Phoenix, who sent him to Dr. Moe for pancytopenia, Dr. Moe recommended blood draws throughout the year. Patient did try getting phlebotomy but his blood pressure spiked to high so he was started on lorazepam to use as needed and he has not completed phlebotomy yet. Patient is taking aspirin 81 mg. Patient continues to not get blood work, waiting for an order from Dr. Avelina Cooley Discussed the importance of phlebotomy. Scheduled with him January 03 at 330. EKG completed prior to preop in June, Patient does have a history of right bundle branch block. #Patient has a history of chronic rhinitis: Recently had nasal septal surgery, with some improvement. #Doing well post left knee surgery, going to physical therapy #Chronic pain: Taking gabapentin 600 mg at night prn #Patient taking fish oil, low HDL, fluvastatin 80 mg #Hypertension: Patient was having dry mouth, elevated blood pressure 158/98, was on amlodipine 10, BenzePrl 40. Medication was discontinued, and losartan 50 mg was started. Patient's been taking it with compliance, no side effects. Blood pressure stable/improved in office today 138/88. Does admit to improved headaches. Did have hydrochlorothiazide at home from a previous prescription that was discontinued. States he took it x 1 dose because he felt like he was swollen . No swelling on examination today. Patient states that he was diuresed, and peed a lot of urine at that time.Educate on the importance of taking medications as prescribed. Patient is using blood pressure monitor at home, which is causing elevated blood pressure readings, but the cuff is too small. Educated to get a larger blood pressure cuff on [employer]. #BPH: Taking tamsulosin 0.4 mg, tadalafil 20 mg #Anxiety: Takes lorazepam 0.5 mg.[facility] sent in October. Admits to increased anxiety, more difficulty sleeping.Patient admits to occasionally taking 2 tablets of lorazepam. Discussed that this is against contract, and he needs to take medications as prescribed. #GERD: Taking pantoprazole 40 mg #Insomnia: Taking Lunesta 2 mg, Melatonin. Also taking lorazepam 0.5 mg As well as hydroxyzine. Educated on proper use, side effects. Scheduled for sleep apnea testing on January 07. Discussed that we cannot alter sleep regimen at this time, and patient is on multiple controlled substances. He does admit to sometimes taking 2 pills of lorazepam. Discussed that he needs to take medications as prescribed, and if he fails to do so, we could not refill prescriptions #Onychomycosis of bilateral toenails, following with podiatry for cleaning. Using topicals without much improvement. Patient on terbinafine, notes that it is working. On it for 3 months. This is be done by podiatry. Mindful of liver enzymes. #Patient has a history of tanning, recommended routine dermatology follow-up for skin cancer check. Follow-up in 2 months, will call with concerns in the meantime. Patient to get phlebotomy in the meantime, and sleep apnea testing. All quetsions answered to patients satisfaction. Patient verbalized understanding of diagnosis and treatments explained. To call sooner prior to next visit it any questions/concerns arise. Case discussed with collaborating physician Atruro Phoenix who reviewed the assessment and plan. Chart, medications, labs, vital signs reviewed. Dictation was accomplished with the use of [employer] voice recognition software, prone to medical misidentifications and grammatical errors. This is unintentional and the practitioner does try to identify and correct these, but some could still be present. Please do not hesitate to contact practitioner for clarification. 12/25/2023 Chronic rhinitis (ICD-10 - J31.0) Danielle is a 8-year-old male who presents the office for Follow-up via telehealth with questions regarding blood pressure medication. #Testicular hypofunction: Patient getting testosterone from Dr. Montana Perea. Patient taking half a cc twice a week. Patient's testosterone was elevated at 1 point, with elevated hemoglobin and hematocrit. Patient did stop testosterone for a few weeks for his knee replacement, but has now been on it for about a month and a half again. Hemoglobin and hematocrit continue to be elevated. Educated on the risk factors associated with continued testosterone use including clotting etc. patient has been getting 6-month supplies of testosterone at a time. Admits to using Anivar, that he purchased from a gym partner, but is no longer using. But patient is not interested in discontinuation of testosterone. Patient did see Dr. Jos Phoenix, who sent him to Dr. Moe for pancytopenia, Dr. Moe recommended blood draws throughout the year. Patient did try getting phlebotomy but his blood pressure spiked to high so he was started on lorazepam to use as needed and he has not completed phlebotomy yet. Patient is taking aspirin 81 mg. Educated on getting blood work prior to next visit.Patient canceled recent visit. States that he needs to get an order from Dr. Avelina Howell for phlebotomy prior to getting his blood work here. That scheduled for January 03 at 330, will follow-up afterwards. EKG completed prior to preop in June, Patient does have a history of right bundle branch block. #Patient has a history of chronic rhinitis: Recently had nasal septal surgery, with some improvement. #Doing well post left knee surgery, going to physical therapy #Chronic pain: Taking gabapentin 600 mg at night #Patient taking fish oil, low HDL, fluvastatin 80 mg #Hypertension: Taking amlodipine BenzePril. Blood pressure elevated last visit 158/98, increase amlodipine to 10 mg, BenzePril 40 mg. Patient states that since increasing, he has been having more difficulty sleeping, dry mouth, just feels off. Will discontinue medication and switch over to losartan 50 mg. Follow-up in 1 week for blood pressure check, take blood pressures at home. Educated on emergency department criteria/criteria to call the office #BPH: Taking tamsulosin 0.4 mg, tadalafil 20 mg #Anxiety: Takes lorazepam 0.5 mg.Does not need refill, taking as needed, but is admitting to increased blood pressure, more anxiety, and difficulty sleeping. Plans to take more at night. #GERD: Taking pantoprazole 40 mg #Insomnia: Taking Lunesta 2 mg, Melatonin. Still admitting to difficulty sleeping. Will trial hydroxyzine. Educated on proper use, side effects. Patient also takes lorazepam as needed, scheduled for sleep apnea testing On 07 January. #Onychomycosis of bilateral toenails, following with podiatry for cleaning. Using topicals without much improvement. Patient on terbinafine, notes that it is working. On it for 3 months. This is be done by podiatry. Mindful of liver enzymes. #Patient has a history of tanning, recommended routine dermatology follow-up for skin cancer check. Follow-up next Thursday for blood pressure check, sooner as needed. In the meantime working with Dr. Kinsey for phlebotomy/blood draws January 03, and sleep apnea testing on January 07. Patient is seen today via telehealth agreement, with consent of patient In light of current COVID -19 Pandemic I used the following telehealth technology (telephone/[employer] during this visit This encounter is appropriate and reasonable under the circumstances given the patient's particular presentation. The patient has been advised of the potential risks and limitations of this mode of treatment Including but not limited to the absence of in person physical examination,and has agreed to be treated in a remote fashion in spite of this. Any and all patient questions have been answered. The patient also has been advised to contact this office for worsening conditions or problems and seek medical treatment and/or call 911 if the patient deems either necessary All quetsions answered to patients satisfaction. Patient verbalized understanding of diagnosis and treatments explained. To call sooner prior to next visit it any questions/concerns arise. Case discussed with collaborating physician Arturo Phoenix who reviewed the assessment and plan. Chart, medications, labs, vital signs reviewed. Dictation was accomplished with the use of [employer] voice recognition software, prone to medical misidentifications and grammatical errors. This is unintentional and the practitioner does try to identify and correct these, but some could still be present. Please do not hesitate to contact practitioner for clarification. 01/01/2024 Chronic rhinitis (ICD-10 - J31.0) Danielle is a 8-year-old male who presents the office for Follow-up . . Patient is here with his today. #Testicular hypofunction: Patient getting testosterone from Dr. Montana Perea. Patient taking half a cc twice a week. Patient's testosterone was elevated at 1 point, with elevated hemoglobin and hematocrit. Patient did stop testosterone for a few weeks for his knee replacement, but has now been on it for about a month and a half again. Hemoglobin and hematocrit continue to be elevated. Educated on the risk factors associated with continued testosterone use including clotting etc. patient has been getting 6-month supplies of testosterone at a time. Admits to using Anivar, that he purchased from a gym partner, but is no longer using. But patient is not interested in discontinuation of testosterone. Patient did see Dr. Jos Phoenix, who sent him to Dr. Moe for pancytopenia, Dr. Moe recommended blood draws throughout the year. Patient did try getting phlebotomy but his blood pressure spiked to high so he was started on lorazepam to use as needed and he has not completed phlebotomy yet. Patient is taking aspirin 81 mg. Patient continues to not get blood work, waiting for an order from Dr. Avelina Howell. Discussed the importance of phlebotomy. Scheduled with him January 03 at 330. EKG completed prior to preop in June, Patient does have a history of right bundle branch block. #Patient has a history of chronic rhinitis: Recently had nasal septal surgery, with some improvement. #Doing well post left knee surgery, going to physical therapy #Chronic pain: Taking gabapentin 600 mg at night prn #Patient taking fish oil, low HDL, fluvastatin 80 mg #Hypertension: Patient was having dry mouth, elevated blood pressure 158/98, was on amlodipine 10, BenzePrl 40. Medication was discontinued, and losartan 50 mg was started. Patient's been taking it with compliance, no side effects. Blood pressure stable/improved in office today 138/88. Does admit to improved headaches. Did have hydrochlorothiazide at home from a previous prescription that was discontinued. States he took it x 1 dose because he felt like he was swollen . No swelling on examination today. Patient states that he was diuresed, and peed a lot of urine at that time.Educate on the importance of taking medications as prescribed. Patient is using blood pressure monitor at home, which is causing elevated blood pressure readings, but the cuff is too small. Educated to get a larger blood pressure cuff on [employer]. #BPH: Taking tamsulosin 0.4 mg, tadalafil 20 mg #Anxiety: Takes lorazepam 0.5 mg.[facility]ing [facility], last prescription sent in October. Admits to increased anxiety, more difficulty sleeping.Patient admits to occasionally taking 2 tablets of lorazepam. Discussed that this is against contract, and he needs to take medications as prescribed. #GERD: Taking pantoprazole 40 mg #Insomnia: Taking Lunesta 2 mg, Melatonin. Also taking lorazepam 0.5 mg As well as hydroxyzine. Educated on proper use, side effects. Scheduled for sleep apnea testing on January 07. Discussed that we cannot alter sleep regimen at this time, and patient is on multiple controlled substances. He does admit to sometimes taking 2 pills of lorazepam. Discussed that he needs to take medications as prescribed, and if he fails to do so, we could not refill prescriptions #Onychomycosis of bilateral toenails, following with podiatry for cleaning. Using topicals without much improvement. Patient on terbinafine, notes that it is working. On it for 3 months. This is be done by podiatry. Mindful of liver enzymes. #Patient has a history of tanning, recommended routine dermatology follow-up for skin cancer check. Follow-up in 2 months, will call with concerns in the meantime. Patient to get phlebotomy in the meantime, and sleep apnea testing. All quetsions answered to patients satisfaction. Patient verbalized understanding of diagnosis and treatments explained. To call sooner prior to next visit it any questions/concerns arise. Case discussed with collaborating physician Arturo Phoenix who reviewed the assessment and plan. Chart, medications, labs, vital signs reviewed. Dictation was accomplished with the use of [employer] voice recognition software, prone to medical misidentifications and grammatical errors. This is unintentional and the practitioner does try to identify and correct these, but some could still be present. Please do not hesitate to contact practitioner for clarification. 12/25/2023 Other insomnia (ICD-10 - G47.09) Danielle is a 8-year-old male who presents the office for Follow-up via telehealth with questions regarding blood pressure medication. #Testicular hypofunction: Patient getting testosterone from Dr. Montana Perea. Patient taking half a cc twice a week. Patient's testosterone was elevated at 1 point, with elevated hemoglobin and hematocrit. Patient did stop testosterone for a few weeks for his knee replacement, but has now been on it for about a month and a half again. Hemoglobin and hematocrit continue to be elevated. Educated on the risk factors associated with continued testosterone use including clotting etc. patient has been getting 6-month supplies of testosterone at a time. Admits to using Anivar, that he purchased from a gym partner, but is no longer using. But patient is not interested in discontinuation of testosterone. Patient did see Dr. Jos Phoenix, who sent him to Dr. Moe for pancytopenia, Dr. Moe recommended blood draws throughout the year. Patient did try getting phlebotomy but his blood pressure spiked to high so he was started on lorazepam to use as needed and he has not completed phlebotomy yet. Patient is taking aspirin 81 mg. Educated on getting blood work prior to next visit.Patient canceled recent visit. States that he needs to get an order from Dr. Avelina Howell for phlebotomy prior to getting his blood work here. That scheduled for January 03 at 330, will follow-up afterwards. EKG completed prior to preop in June, Patient does have a history of right bundle branch block. #Patient has a history of chronic rhinitis: Recently had nasal septal surgery, with some improvement. #Doing well post left knee surgery, going to physical therapy #Chronic pain: Taking gabapentin 600 mg at night #Patient taking fish oil, low HDL, fluvastatin 80 mg #Hypertension: Taking amlodipine BenzePril. Blood pressure elevated last visit 158/98, increase amlodipine to 10 mg, BenzePril 40 mg. Patient states that since increasing, he has been having more difficulty sleeping, dry mouth, just feels off. Will discontinue medication and switch over to losartan 50 mg. Follow-up in 1 week for blood pressure check, take blood pressures at home. Educated on emergency department criteria/criteria to call the office #BPH: Taking tamsulosin 0.4 mg, tadalafil 20 mg #Anxiety: Takes lorazepam 0.5 mg.Does not need refill, taking as needed, but is admitting to increased blood pressure, more anxiety, and difficulty sleeping. Plans to take more at night. #GERD: Taking pantoprazole 40 mg #Insomnia: Taking Lunesta 2 mg, Melatonin. Still admitting to difficulty sleeping. Will trial hydroxyzine. Educated on proper use, side effects. Patient also takes lorazepam as needed, scheduled for sleep apnea testing On 07 January. #Onychomycosis of bilateral toenails, following with podiatry for cleaning. Using topicals without much improvement. Patient on terbinafine, notes that it is working. On it for 3 months. This is be done by podiatry. Mindful of liver enzymes. #Patient has a history of tanning, recommended routine dermatology follow-up for skin cancer check. Follow-up next Thursday for blood pressure check, sooner as needed. In the meantime working with Dr. Kinsey for phlebotomy/blood draws January 03, and sleep apnea testing on January 07. Patient is seen today via telehealth agreement, with consent of patient In light of current COVID -19 Pandemic I used the following telehealth technology (telephone/[employer] during this visit This encounter is appropriate and reasonable under the circumstances given the patient's particular presentation. The patient has been advised of the potential risks and limitations of this mode of treatment Including but not limited to the absence of in person physical examination,and has agreed to be treated in a remote fashion in spite of this. Any and all patient questions have been answered. The patient also has been advised to contact this office for worsening conditions or problems and seek medical treatment and/or call 911 if the patient deems either necessary All quetsions answered to patients satisfaction. Patient verbalized understanding of diagnosis and treatments explained. To call sooner prior to next visit it any questions/concerns arise. Case discussed with collaborating physician Arturo Phoenix who reviewed the assessment and plan. Chart, medications, labs, vital signs reviewed. Dictation was accomplished with the use of [employer] voice recognition software, prone to medical misidentifications and grammatical errors. This is unintentional and the practitioner does try to identify and correct these, but some could still be present. Please do not hesitate to contact practitioner for clarification. 03/01/2024 Other insomnia (ICD-10 - G47.09) This 63-year-old male with multiple medical problems which is a complicated case given the use or overuse of testosterone hypertensive crisis untreated sleep apnea. Patient has also used steroids which were not prescribed by a physician and we did discuss that at length. We set up some boundaries and ground rules on how to use medicines. We collaborated with his testosterone prescribing provider. A plan of care as outlined above including management of hypertension and sleep apnea and follow-up in 1 week 03/08/2024 Chronic pain syndrome (ICD-10 - G89.4) Patient has been diagnosed with elevated blood pressure discussed that blood pressure values can vary with different measurements. We should go by mean blood pressure values.. Discussed the role of ambulatory blood pressure monitoring. Discussed the role of Qardio blood pressure device system that we have and can help with remote blood pressure monitoring as long as it is covered by insurance and can be measured remotely. Discussed different blood pressure medicines including angiotensin receptor blockers like losartan, calcium channel blockers like amlodipine based beta-blockers like, metoprolol and bisoprolol, diuretics like hydrochlorothiazide,. Spironolactone and furosemide. Discussed the role of diet elimination of refined carbohydrates processed sugars alcohol, standard [place] diet, chips and fast food, role of home cooking, elimination of white bread and high fructose corn syrup and cereals. Discussed wholesome eating, regular exercise, step count and walking to get 10,000 steps a day when possible. Keeping a log of blood pressure and having a physician or physician typewriter assembler titrate blood pressure based on treatment protocols I I have added clonidine to help with anxiety management and also to help with blood pressure management. Unfortunately, he has been abusing his testosterone and I have discussed this with his functional provider I also discussed with his seismograph supervisor and he will have phlebotomy draws will follow-up in a few months 04/12/2024 Achilles tendinitis, right leg (ICD-10 - M76.61) Patient has been diagnosed with elevated blood pressure discussed that blood pressure values can vary with different measurements. We should go by mean blood pressure values.. Discussed the role of ambulatory blood pressure monitoring. Discussed the role of [employer] blood pressure device system that we have and can help with remote blood pressure monitoring as long as it is covered by insurance and can be measured remotely. Discussed different blood pressure medicines including angiotensin receptor blockers like losartan, calcium channel blockers like amlodipine based beta-blockers like, metoprolol and bisoprolol, diuretics like hydrochlorothiazide,. Spironolactone and furosemide. Discussed the role of diet elimination of refined carbohydrates processed sugars alcohol, standard [place] diet, chips and fast food, role of home cooking, elimination of white bread and high fructose corn syrup and cereals. Discussed wholesome eating, regular exercise, step count and walking to get 10,000 steps a day when possible. Keeping a log of blood pressure and having a physician or physician typewriter assembler titrate blood pressure based on treatment protocols 06/14/2024 Polycythemia vera (ICD-10 - D45) Hx of HTN - 118/90 today in office. Continue medication adherence with losartan/HCTZ, amlodipine, and clonidine. Hx of HLD - patient is adherent to statin therapy. Continue medication and healthy eating. Hx of achilles tendonitis - currently using celebrex, doing well. Continue tates stretching and doing light exercise. Hx polycythemia vera - follows-up with seismograph supervisor for phlebotomy. Last treatment was April, next is Jul.22. Uses lorazepam prior to phlebotomy due to anxiety. Continue regimen. Hx of trouble sleeping - Continue with eszopiclone and Relaxium OTC. Educated patient on sleep hygeine: dark room, white noise, creating a bedtime routine, no electronics before bed, only use bed for sleeping. Hx of hypogonadism - patient recently had to stop testosterone replacement due to hypertension. Currently on enclomiphene citrate 12.5mg x2 tabs once daily - prescribed by Dr. Pendleton at [facility]. Patient is most likely feeling more anxious and emotional d/t enclomiphene citrate. Plan at this time is to continue current regimen and follow-up with functional medicine, given emotional state, would recommend discontinuing medication. Continue exercise regimen as well as healthy eating. Flu shot given today. Patient is set to follow up 3 months. 09/21/2024 Obstructive sleep apnea (ICD-10 - G47.33) Most recent hemoglobin is downtrending He gets therapeutic draws at [facility] Will get updated comprehensive labs including CBC with differential Will get an echocardiogram given his history of RBBB and hypertension Will get a coronary calcium CT score as it has been 8 years Previous was 0 and clean in 2018 Losartan monotherapy along with amlodipine as well as clonidine I have instructed him to check his blood pressures at home closely and we will adjust if needed Of note, some information is being carried forward from prior records for informational purposes only and is being cited so that efficiency, safety and quality of the patient's care is not compromised This note was prepared using voice recognition software and direct typing Please excuse inadvertent clinical informaticist or typing errors, or uncorrected word substitutions Although every attempt has been made by the provider to proofread this document, occasional misspellings and typographical errors may still be present Due to the previous pandemic, and the use of personal protective equipment (PPE) This may decrease voice recognition accuracy Inadvertent clinical informaticist errors may occur 09/21/2024 Right bundle branch block (RBBB) (ICD-10 - I45.10) Most recent hemoglobin is downtrending He gets therapeutic draws at [facility] Will get updated comprehensive labs including CBC with differential Will get an echocardiogram given his history of RBBB and hypertension Will get a coronary calcium CT score as it has been 8 years Previous was 0 and clean in 2018 Losartan monotherapy along with amlodipine as well as clonidine I have instructed him to check his blood pressures at home closely and we will adjust if needed Of note, some information is being carried forward from prior records for informational purposes only and is being cited so that efficiency, safety and quality of the patient's care is not compromised This note was prepared using voice recognition software and direct typing Please excuse inadvertent clinical informaticist or typing errors, or uncorrected word substitutions Although every attempt has been made by the provider to proofread this document, occasional misspellings and typographical errors may still be present Due to the previous pandemic, and the use of personal protective equipment (PPE) This may decrease voice recognition accuracy Inadvertent clinical informaticist errors may occur 06/14/2024 Hypogonadism male (ICD-10 - E29.1) Hx of HTN - 118/90 today in office. Continue medication adherence with losartan/HCTZ, amlodipine, and clonidine. Hx of HLD - patient is adherent to statin therapy. Continue medication and healthy eating. Hx of achilles tendonitis - currently using celebrex, doing well. Continue tates stretching and doing light exercise. Hx polycythemia vera - follows-up with seismograph supervisor for phlebotomy. Last treatment was April, next is Jul.22. Uses lorazepam prior to phlebotomy due to anxiety. Continue regimen. Hx of trouble sleeping - Continue with eszopiclone and Relaxium OTC. Educated patient on sleep hygeine: dark room, white noise, creating a bedtime routine, no electronics before bed, only use bed for sleeping. Hx of hypogonadism - patient recently had to stop testosterone replacement due to hypertension. Currently on enclomiphene citrate 12.5mg x2 tabs once daily - prescribed by Dr. Pendleton at [facility]. Patient is most likely feeling more anxious and emotional d/t enclomiphene citrate. Plan at this time is to continue current regimen and follow-up with functional medicine, given emotional state, would recommend discontinuing medication. Continue exercise regimen as well as healthy eating. Flu shot given today. Patient is set to follow up 3 months. 01/01/2024 Other insomnia (ICD-10 - G47.09) Danielle is a 8-year-old male who presents the office for Follow-up . . Patient is here with his today. #Testicular hypofunction: Patient getting testosterone from Dr. Montana Perea. Patient taking half a cc twice a week. Patient's testosterone was elevated at 1 point, with elevated hemoglobin and hematocrit. Patient did stop testosterone for a few weeks for his knee replacement, but has now been on it for about a month and a half again. Hemoglobin and hematocrit continue to be elevated. Educated on the risk factors associated with continued testosterone use including clotting etc. patient has been getting 6-month supplies of testosterone at a time. Admits to using Anivar, that he purchased from a gym partner, but is no longer using. But patient is not interested in discontinuation of testosterone. Patient did see Dr. Jos Phoenix, who sent him to Dr. Moe for pancytopenia, Dr. Moe recommended blood draws throughout the year. Patient did try getting phlebotomy but his blood pressure spiked to high so he was started on lorazepam to use as needed and he has not completed phlebotomy yet. Patient is taking aspirin 81 mg. Patient continues to not get blood work, waiting for an order from Dr. Avelina Cooley Discussed the importance of phlebotomy. Scheduled with him January 03 at 330. EKG completed prior to preop in June, Patient does have a history of right bundle branch block. #Patient has a history of chronic rhinitis: Recently had nasal septal surgery, with some improvement. #Doing well post left knee surgery, going to physical therapy #Chronic pain: Taking gabapentin 600 mg at night prn #Patient taking fish oil, low HDL, fluvastatin 80 mg #Hypertension: Patient was having dry mouth, elevated blood pressure 158/98, was on amlodipine 10, BenzePrl 40. Medication was discontinued, and losartan 50 mg was started. Patient's been taking it with compliance, no side effects. Blood pressure stable/improved in office today 138/88. Does admit to improved headaches. Did have hydrochlorothiazide at home from a previous prescription that was discontinued. States he took it x 1 dose because he felt like he was swollen . No swelling on examination today. Patient states that he was diuresed, and peed a lot of urine at that time.Educate on the importance of taking medications as prescribed. Patient is using blood pressure monitor at home, which is causing elevated blood pressure readings, but the cuff is too small. Educated to get a larger blood pressure cuff on [employer]. #BPH: Taking tamsulosin 0.4 mg, tadalafil 20 mg #Anxiety: Takes lorazepam 0.[address] [facility] reviewed, last prescription sent in October. Admits to increased anxiety, more difficulty sleeping.Patient admits to occasionally taking 2 tablets of lorazepam. Discussed that this is against contract, and he needs to take medications as prescribed. #GERD: Taking pantoprazole 40 mg #Insomnia: Taking Lunesta 2 mg, Melatonin. Also taking lorazepam 0.5 mg As well as hydroxyzine. Educated on proper use, side effects. Scheduled for sleep apnea testing on January 07. Discussed that we cannot alter sleep regimen at this time, and patient is on multiple controlled substances. He does admit to sometimes taking 2 pills of lorazepam. Discussed that he needs to take medications as prescribed, and if he fails to do so, we could not refill prescriptions #Onychomycosis of bilateral toenails, following with podiatry for cleaning. Using topicals without much improvement. Patient on terbinafine, notes that it is working. On it for 3 months. This is be done by podiatry. Mindful of liver enzymes. #Patient has a history of tanning, recommended routine dermatology follow-up for skin cancer check. Follow-up in 2 months, will call with concerns in the meantime. Patient to get phlebotomy in the meantime, and sleep apnea testing. All quetsions answered to patients satisfaction. Patient verbalized understanding of diagnosis and treatments explained. To call sooner prior to next visit it any questions/concerns arise. Case discussed with collaborating physician Arturo Phoenix who reviewed the assessment and plan. Chart, medications, labs, vital signs reviewed. Dictation was accomplished with the use of [employer] voice recognition software, prone to medical misidentifications and grammatical errors. This is unintentional and the practitioner does try to identify and correct these, but some could still be present. Please do not hesitate to contact practitioner for clarification. 12/25/2023 Elevated hematocrit (ICD-10 - R71.8) Danielle is a 8-year-old male who presents the office for Follow-up via telehealth with questions regarding blood pressure medication. #Testicular hypofunction: Patient getting testosterone from Dr. Montana Perea. Patient taking half a cc twice a week. Patient's testosterone was elevated at 1 point, with elevated hemoglobin and hematocrit. Patient did stop testosterone for a few weeks for his knee replacement, but has now been on it for about a month and a half again. Hemoglobin and hematocrit continue to be elevated. Educated on the risk factors associated with continued testosterone use including clotting etc. patient has been getting 6-month supplies of testosterone at a time. Admits to using Anivar, that he purchased from a gym partner, but is no longer using. But patient is not interested in discontinuation of testosterone. Patient did see Dr. Jos Phoenix, who sent him to Dr. Moe for pancytopenia, Dr. Moe recommended blood draws throughout the year. Patient did try getting phlebotomy but his blood pressure spiked to high so he was started on lorazepam to use as needed and he has not completed phlebotomy yet. Patient is taking aspirin 81 mg. Educated on getting blood work prior to next visit.Patient canceled recent visit. States that he needs to get an order from Dr. Avelina Howell for phlebotomy prior to getting his blood work here. That scheduled for January 03 at 330, will follow-up afterwards. EKG completed prior to preop in June, Patient does have a history of right bundle branch block. #Patient has a history of chronic rhinitis: Recently had nasal septal surgery, with some improvement. #Doing well post left knee surgery, going to physical therapy #Chronic pain: Taking gabapentin 600 mg at night #Patient taking fish oil, low HDL, fluvastatin 80 mg #Hypertension: Taking amlodipine BenzePril. Blood pressure elevated last visit 158/98, increase amlodipine to 10 mg, BenzePril 40 mg. Patient states that since increasing, he has been having more difficulty sleeping, dry mouth, just feels off. Will discontinue medication and switch over to losartan 50 mg. Follow-up in 1 week for blood pressure check, take blood pressures at home. Educated on emergency department criteria/criteria to call the office #BPH: Taking tamsulosin 0.4 mg, tadalafil 20 mg #Anxiety: Takes lorazepam 0.5 mg.Does not need refill, taking as needed, but is admitting to increased blood pressure, more anxiety, and difficulty sleeping. Plans to take more at night. #GERD: Taking pantoprazole 40 mg #Insomnia: Taking Lunesta 2 mg, Melatonin. Still admitting to difficulty sleeping. Will trial hydroxyzine. Educated on proper use, side effects. Patient also takes lorazepam as needed, scheduled for sleep apnea testing On 07 January. #Onychomycosis of bilateral toenails, following with podiatry for cleaning. Using topicals without much improvement. Patient on terbinafine, notes that it is working. On it for 3 months. This is be done by podiatry. Mindful of liver enzymes. #Patient has a history of tanning, recommended routine dermatology follow-up for skin cancer check. Follow-up next Thursday for blood pressure check, sooner as needed. In the meantime working with Dr. Kinsey for phlebotomy/blood draws January 03, and sleep apnea testing on January 07. Patient is seen today via telehealth agreement, with consent of patient In light of current COVID -19 Pandemic I used the following telehealth technology (telephone/[employer] during this visit This encounter is appropriate and reasonable under the circumstances given the patient's particular presentation. The patient has been advised of the potential risks and limitations of this mode of treatment Including but not limited to the absence of in person physical examination,and has agreed to be treated in a remote fashion in spite of this. Any and all patient questions have been answered. The patient also has been advised to contact this office for worsening conditions or problems and seek medical treatment and/or call 911 if the patient deems either necessary All quetsions answered to patients satisfaction. Patient verbalized understanding of diagnosis and treatments explained. To call sooner prior to next visit it any questions/concerns arise. Case discussed with collaborating physician Arturo Phoenix who reviewed the assessment and plan. Chart, medications, labs, vital signs reviewed. Dictation was accomplished with the use of [employer] voice recognition software, prone to medical misidentifications and grammatical errors. This is unintentional and the practitioner does try to identify and correct these, but some could still be present. Please do not hesitate to contact practitioner for clarification. 01/01/2024 Elevated hematocrit (ICD-10 - R71.8) Danielle is a 8-year-old male who presents the office for Follow-up . . Patient is here with his today. #Testicular hypofunction: Patient getting testosterone from Dr. Montana Perea. Patient taking half a cc twice a week. Patient's testosterone was elevated at 1 point, with elevated hemoglobin and hematocrit. Patient did stop testosterone for a few weeks for his knee replacement, but has now been on it for about a month and a half again. Hemoglobin and hematocrit continue to be elevated. Educated on the risk factors associated with continued testosterone use including clotting etc. patient has been getting 6-month supplies of testosterone at a time. Admits to using Anivar, that he purchased from a gym partner, but is no longer using. But patient is not interested in discontinuation of testosterone. Patient did see Dr. Jos Phoenix, who sent him to Dr. Moe for pancytopenia, Dr. Moe recommended blood draws throughout the year. Patient did try getting phlebotomy but his blood pressure spiked to high so he was started on lorazepam to use as needed and he has not completed phlebotomy yet. Patient is taking aspirin 81 mg. Patient continues to not get blood work, waiting for an order from Dr. Avelina Cooley Discussed the importance of phlebotomy. Scheduled with him January 03 at 330. EKG completed prior to preop in June, Patient does have a history of right bundle branch block. #Patient has a history of chronic rhinitis: Recently had nasal septal surgery, with some improvement. #Doing well post left knee surgery, going to physical therapy #Chronic pain: Taking gabapentin 600 mg at night prn #Patient taking fish oil, low HDL, fluvastatin 80 mg #Hypertension: Patient was having dry mouth, elevated blood pressure 158/98, was on amlodipine 10, BenzePrl 40. Medication was discontinued, and losartan 50 mg was started. Patient's been taking it with compliance, no side effects. Blood pressure stable/improved in office today 138/88. Does admit to improved headaches. Did have hydrochlorothiazide at home from a previous prescription that was discontinued. States he took it x 1 dose because he felt like he was swollen . No swelling on examination today. Patient states that he was diuresed, and peed a lot of urine at that time.Educate on the importance of taking medications as prescribed. Patient is using blood pressure monitor at home, which is causing elevated blood pressure readings, but the cuff is too small. Educated to get a larger blood pressure cuff on [employer]. #BPH: Taking tamsulosin 0.4 mg, tadalafil 20 mg #Anxiety: Takes lorazepam 0.[address] [facility] reviewed, last prescription sent in October. Admits to increased anxiety, more difficulty sleeping.Patient admits to occasionally taking 2 tablets of lorazepam. Discussed that this is against contract, and he needs to take medications as prescribed. #GERD: Taking pantoprazole 40 mg #Insomnia: Taking Lunesta 2 mg, Melatonin. Also taking lorazepam 0.5 mg As well as hydroxyzine. Educated on proper use, side effects. Scheduled for sleep apnea testing on January 07. Discussed that we cannot alter sleep regimen at this time, and patient is on multiple controlled substances. He does admit to sometimes taking 2 pills of lorazepam. Discussed that he needs to take medications as prescribed, and if he fails to do so, we could not refill prescriptions #Onychomycosis of bilateral toenails, following with podiatry for cleaning. Using topicals without much improvement. Patient on terbinafine, notes that it is working. On it for 3 months. This is be done by podiatry. Mindful of liver enzymes. #Patient has a history of tanning, recommended routine dermatology follow-up for skin cancer check. Follow-up in 2 months, will call with concerns in the meantime. Patient to get phlebotomy in the meantime, and sleep apnea testing. All quetsions answered to patients satisfaction. Patient verbalized understanding of diagnosis and treatments explained. To call sooner prior to next visit it any questions/concerns arise. Case discussed with collaborating physician Arturo Phoenix who reviewed the assessment and plan. Chart, medications, labs, vital signs reviewed. Dictation was accomplished with the use of [employer] voice recognition software, prone to medical misidentifications and grammatical errors. This is unintentional and the practitioner does try to identify and correct these, but some could still be present. Please do not hesitate to contact practitioner for clarification. 06/14/2024 Sleep concern (ICD-10 - Z76.89) Hx of HTN - 118/90 today in office. Continue medication adherence with losartan/HCTZ, amlodipine, and clonidine. Hx of HLD - patient is adherent to statin therapy. Continue medication and healthy eating. Hx of achilles tendonitis - currently using celebrex, doing well. Continue tates stretching and doing light exercise. Hx polycythemia vera - follows-up with seismograph supervisor for phlebotomy. Last treatment was April, next is Jul.22. Uses lorazepam prior to phlebotomy due to anxiety. Continue regimen. Hx of trouble sleeping - Continue with eszopiclone and Relaxium OTC. Educated patient on sleep hygeine: dark room, white noise, creating a bedtime routine, no electronics before bed, only use bed for sleeping. Hx of hypogonadism - patient recently had to stop testosterone replacement due to hypertension. Currently on enclomiphene citrate 12.5mg x2 tabs once daily - prescribed by Dr. Pendleton at [facility]. Patient is most likely feeling more anxious and emotional d/t enclomiphene citrate. Plan at this time is to continue current regimen and follow-up with functional medicine, given emotional state, would recommend discontinuing medication. Continue exercise regimen as well as healthy eating. Flu shot given today. Patient is set to follow up 3 months. PLAN OF TREATMENT Pending Test Test Name Order Date Lipid Panel 04/26/2020 Comp. Metabolic Panel (14) 04/26/2020 PSA Total+ Free 04/26/2020 CBC 04/26/2020 Urinalysis 04/26/2020 EKG 11/07/2020 EKG 04/01/2018 CBC (COMPLETE BLOOD COUNT) 09/02/2018 COMPREHENSIVE METABOLIC PANEL 09/02/2018 LIPID PANEL 09/02/2018 PSA, SCREEN 09/02/2018 PSA, SCREEN 09/21/2024 PSA, SCREEN 10/20/2019 TESTOSTERONE, FREE AND TOTAL (MALES >15 YRS OLD) 03/24/2023 URINALYSIS, COMPLETE 09/02/2018 Comprehensive Metabolic Panel 04/01/2018 Lipid Panel 04/01/2018 Cologuard 04/21/2019 Cologuard 08/26/2022 LIPID PANEL, STANDARD 08/26/2022 LIPID PANEL, STANDARD 08/17/2023 LIPID PANEL, STANDARD 06/20/2021 LIPID PANEL, STANDARD 02/04/2022 LIPID PANEL, STANDARD 03/24/2023 LIPID PANEL, STANDARD 09/21/2024 COMPREHENSIVE METABOLIC PANEL 09/21/2024 COMPREHENSIVE METABOLIC PANEL 03/24/2023 COMPREHENSIVE METABOLIC PANEL 02/04/2022 COMPREHENSIVE METABOLIC PANEL 08/17/2023 COMPREHENSIVE METABOLIC PANEL 08/26/2022 COMPREHENSIVE METABOLIC PANEL 06/20/2021 CBC (INCLUDES DIFF/PLT) 06/20/2021 CBC (INCLUDES DIFF/PLT) 08/26/2022 CBC (INCLUDES DIFF/PLT) 05/26/2023 CBC (INCLUDES DIFF/PLT) 02/04/2022 CBC (INCLUDES DIFF/PLT) 03/24/2023 CBC (INCLUDES DIFF/PLT) 09/21/2024 CBC (INCLUDES DIFF/PLT) 10/19/2023 URINALYSIS, COMPLETE 03/24/2023 URINALYSIS, COMPLETE 09/21/2024 URINALYSIS, COMPLETE 02/04/2022 URINALYSIS, COMPLETE 06/20/2021 HEMOGLOBIN A1c 09/21/2024 PSA (FREE AND TOTAL) 02/04/2022 PSA, TOTAL 03/24/2023 TSH 09/21/2024 VITAMIN D,25-OH,TOTAL,IA 09/21/2024 VITAMIN D,25-OH,TOTAL,IA 08/26/2022 TESTOSTERONE, TOTAL, MS 05/26/2023 TESTOSTERONE, FREE (DIALYSIS) AND TOTAL, MS 10/19/2023 US Renal 02/04/2022 Next Appt Details Provider Name:ESTELITA FRANCO, 12/08/2024 03:15:00 PM, [address] [facility], [address], [place], [address], Insurance Providers Payer Name Payer Address Payer Phone Subscriber Number Group Number Insured Name Patient Relationship to Insured Coverage Start Date Coverage End Date [employer] of [place] [address] [place] [address] [phone] [id number] DANIELLE LOUIS Self - patient is the insured MEDICATIONS ADMINISTERED Medication Instructions Date of Administration Dosage Notes MICC B12 INJECTION 08/26/2022 [id number] MEDICAL (GENERAL) HISTORY Medical History History ICD Code anxiety asthma erectile dysfunction esophageal reflux herpes simplex hyperlipidemia hypertension right bundle branch block (RBBB) Surgical History Surgery Date(Month/Year) back surgery Both ACL repaired nasal septal deviation repair March 2023 right achilles tendon repair right knee replaced Jun 2022 left knee replaced June 2023 Hospitalization History Reason Date(Month/Year) for surgery
--- OUTSIDE RECORDS SUMMARY | 2024-11-04 09:14 | XMS_ITS ---
Author Organization [facility] Address [address] [place] [address] Care Team Providers Care Audit Machine Operator Name Role Phone KAMALA ZIEGLER Primary Care Provider ESTELITA FRANCO [phone] MEDICATIONS Medication SIG (Take, Route, Fr equency, Duration) Notes Start Date End Date Status Eszopiclone 2 MG 1 tablet immediately before bedtime Orally at bedtime for 90 days 10/24/2024 Ac tive Encounters Encounter Location Date Provider Diagnosis [address] [facility] [address] [place] [address] 10/24/2024 ESTELITA FRANCO PLAN OF TREATMENT Medication Medication Name Sig Start Date Stop Date Notes Eszopiclone 2 MG 1 tablet immediately before bedtime Orally at bedtime for 90 days 10/24/2024 Next Appt Details Provider Name:ESTELITA FRANCO, 12/08/2024 03:15:00 PM, [address] [facility], [address], [place], [address], Progress Notes * DANIELLE LOUIS FDOB:[birth year] (63 yo M)Acc No.[id number]:10/24/2024 Patient:??DANIELLE LOUIS :1960?Age:63 Y?Sex:Yessy montgomery Address:[address] [place] [address] * Refills?? Refill Eszopiclone Tablet, 2 MG, Orally, 90, 1 tablet immediately before bedtime, at bedtime, 90 days, Refills=1 * true * Date:??
--- OUTSIDE RECORDS SUMMARY | 2024-11-04 09:14 | XMS_ITS | Clinical Summary ---
Author Organization [facility] Address [address] [place] [address] Care Team Providers Care Overedge Sewer Name Role Phone Juancarlos Phoenix MD Primary Care Provider + [phone] Allergies Active Allergy Reactions Criticality Noted Date Comments Other 01/04/2024 enviromental - allergy injections Medications Medication Sig Dispensed Refills Start Date End Date Status losartan (COZAAR) tablet 50 mg Take 1 tablet (50 mg total) by mouth daily. 0 Active pantoprazole (PROTONIX) [address] 1 packet (40 mg total) into G Tube every morning on an empty stomach. 0 Active valACYclovir (Valtrex) 1000 MG tablet Take 1 tablet (1,000 mg total) by mouth 2 (two) times a day. 0 Active montelukast (SINGULAIR) 10 MG tablet Take 1 tablet (10 mg total) by mouth every night at bedtime. 0 Active tamsulosin (FLOMAX) 0.4 MG CAPS Take 1 capsule (0.4 mg total) by mouth daily. 0 Active eszopiclone (LUNESTA) 2 MG TABS Take 1 tablet (2 mg total) by mouth every night at bedtime. Take immediately before bedtime 0 Active fluvastatin XL (LESCOL XL) 80 MG 24 hr tablet Take 1 tablet (80 mg total) by mouth daily. 0 Active celecoxib (CeleBREX) 200 MG capsule Take 1 capsule (200 mg total) by mouth daily. 0 Active amLODIPine-atorvasta tin (CADUET) 10-20 MG per tablet Take 1 tablet by mouth daily. 0 Active Active Problems No known active problems Social History Tobacco Use Types Packs/Day Years Used Date Smoking Tobacco: Never Assessed Sex and Gender Information Value Date Recorded Sex Assigned at Male 05/07/2023 12:17 PM EDT Gender Identity Not on file Sexual Orientation Not on file Job Start Date Occupation Industry Not on file Not on file Not on file Last Filed Vital Signs Vital Sign Reading Time Taken Comments Blood Pressure 183/90 01/04/2024 3:28 PM EDT THURSDAY WAS 134/84 ---MEDICATION CHANGE FROM AMLODIPINE 40MG TO LOSARTAN 50MG Pulse 81 01/04/2024 3:28 PM EDT Temperature 36.8 ??C (98.2 ??F) 01/04/2024 3 :28 PM EDT Respiratory Rate - - Oxygen Saturation 96% 01/04/2024 3:2 8 PM EDT Inhaled Oxygen Concentration - - Weight 129.5 kg (285 lb 9.6 oz) 01/04/2024 3:28 PM EDT Height 200.7 cm (6' 7 ) 01/04/2024 3:28 PM EDT Body Mass Index 32.17 01/04/2024 3:28 PM EDT Plan of Treatment Health Maintenance Due Date Last Done Comments Hepatitis C Screening 1962 COVID-19 Vaccine (#1) 12/03/1967 Pneumococcal Vaccine (1 of 2 - PCV) 1968 Depression Screening 1974 Preventative Health Evaluation 1980 DTap / Tdap / Td (1 - Tdap) 1981 Shingrix-Zoster Vaccine (1 of 2) 1981 Colon Cancer Screening (Colonoscopy) 12/03/2007 Influenza Vaccine (#1) 2024 RSV Adult > 60+ Yrs or Pregn ant (1 - 1-dose 75+ series) 2037 Hepatitis B Vaccines Aged Out No long er eligible based on patient's age to complete this topic RSV Ped < 20 months Aged Out No longe r eligible based on patient's age to complete this topic Care Teams Overedge Sewer Relationship Specialty Start Date End Date Juancarlos Phoenix MD [address] [place] [address] PCP - General Internal Medicine 04/05/18
--- OUTSIDE RECORDS SUMMARY | 2024-11-04 09:15 | XMS_ITS ---
Author Organization [facility] Address [address] [place] [address] Care Team Providers Care Brim Pouncer Name Role Phone KAMALA ZIEGLER Primary Care Provider ESTELITA FRANCO Unavailable [phone] REASON FOR VISIT Refills MEDICATIONS Medication SIG (Take, Route, Fr equency, Duration) Notes Start Date End Date Status Eszopiclone 2 MG 1 tablet immediately before bedtime Orally at bedtime for 90 days 04/18/2024 Ac tive Encounters Encounter Location Date Provider Diagnosis [facility] [address] [place] [id number] 10/24/2024 ESTELITA FRANCO PLAN OF TREATMENT Medication Medication Name Sig Start Date Stop Date Notes Eszopiclone 2 MG 1 tablet immediately before bedtime Orally at bedtime for 90 days 04/18/2024 Next Appt Details Provider Name:ESTELITA FRANCO, 12/08/2024 03:15:00 PM, [address] [place] [address], [phone], Progress Notes * DANIELLE LOUIS FDOB:[birth year] (63 yo M)Acc No.[id number]:10/24/2024 Patient:??DANIELLE LOUIS :1960?Age:63 Y?Sex:Yessy montgomery Address:[address] [place] [address] * Refills?? Refill Eszopiclone Tablet, 2 MG, Orally, 90, 1 tablet immediately before bedtime, at bedtime, 90 days, Refills=1 * true * Date:??
--- OUTSIDE RECORDS SUMMARY | 2024-11-04 09:15 | XMS_ITS | Clinical Summary ---
Author Organization [address] [place] [address] [place] [phone] Phone Care Team Providers Care Divorce Attorney Name Role Phone Juancarlos Phoenix MD Primary Care Provider [phone] Allergies Active Allergy Reactions Criticality Noted Date Comments Other 01/04/2024 enviromental - allergy injections Medications amLODIPine-ator vastatin (CADUET) 10-20 mg per tablet Take 1 tablet by mouth 1 (one) time each day. Active celecoxib (CeleBREX) 200 mg capsule Take 1 capsule (200 mg total) by mouth 1 (one) time each day. Active eszopiclone (LUNESTA) 2 mg tablet Take 1 tablet (2 mg total) by mouth every night at bedtime. Take immediately before bedtime Active fluvastatin XL (LESCOL XL) 80 mg 24 hr tablet Take 1 tablet (80 mg total) by mouth 1 (one) time each day. Active losartan (COZAAR) 50 mg tablet Take 1 tablet (50 mg total) by mouth 1 (one) time each day. Active montelukast (SINGULAIR) 10 mg tablet Take 1 tablet (10 mg total) by mouth every night at bedtime. Active pantoprazole (PROTONIX) [address] 1 packet (40 mg total) into G Tube every morning on an empty stomach. Active tamsulosin (FLOMAX) 0.4 mg 24 hr capsule Take 1 capsule (0.4 mg total) by mouth 1 (one) time each day. Active valACYclovir (VALTREX) 1 gram tablet Take 1 tablet (1,000 mg total) by mouth 2 (two) times a day. Active Social History Tobacco Use Types Packs/Day Years Used Date Smoking Tobacco: Never Assessed Sex and Gender Information Value Date Recorded Sex Assigned at Not on file Legal Sex Male 7:13 AM EST Gender Identity Not on file Sexual Orientation Not on file Obstetrics History Last Filed Vital Signs Vital Sign Reading Time Taken Comments Blood Pressure 183/90 01/04/2024 3:28 PM EDT Sitting Right arm Pulse 81 01/04/2024 3:28 PM EDT Temperature - - Respiratory Rate - - Oxygen Saturation - - Inhaled Oxygen Concentration - - Weight 130 kg (285 lb 9.6 oz) 01/04/2024 3:28 PM EDT Height 200.7 cm (6' 7 ) 01/04/2024 3:28 PM EDT Body Mass Index 32.17 01/04/2024 3:28 PM EDT Plan of Treatment Upcoming Encounters Date Type Department Care Team (Late st Contact Info) Description 12/20/2024 3:30 PM EDT Ancillary Procedure [facility] [address] [place] [address] 01/04/2025 3:30 PM EDT Office Visit [facility] Hematology Oncology [address] [place] [phone] Geremias Moe MD [address] [place] [address] Health Maintenance Due Date Last Done Comments COVID-19 Vaccine (#1) 12/03/1967 DTaP,Tdap,and Td Vaccines (1 - Tdap) 1981 Pneumococcal Vaccine: 50+ Years (1 of 2 - PCV) 1981 Pneumococcal Vaccine: Pediatrics (0 to 5 Years) and At-Risk Patients (6 to 64 Years) (1 of 2 - PCV) 1981 Zoster Vaccines (1 of 2) 1981 Cholesterol Screening (Lipid Panel) 10/18/2023 Depression Screening 10/18/2023 HIV Screening 10/18/2023 Hepatitis C Screening 10/18/2023 Social Influencers of Health Screening 10/18/2023 Influenza Vaccine (#1) 2024 Hypertension/CHF/CAD Annual BMP Blood Test 10/01/2024 Colorectal Cancer Screening: FIT-DNA (Cologuard) 09/24/2025 09/24/2022, 09/24/2022, 06/21/2019 RSV Immunization Patients 60 + Years Old (1 - 1-dose 75+ series) 2037 HIB Vaccines Aged Out No longer eligi ble based on patient's age to complete this topic HPV Vaccines Aged Out No longer eligi ble based on patient's age to complete this topic Hepatitis A Vaccines Aged Out No long er eligible based on patient's age to complete this topic Hepatitis B Vaccines Aged Out No long er eligible based on patient's age to complete this topic IPV Vaccines Aged Out No longer eligi ble based on patient's age to complete this topic MMR Vaccines Aged Out No longer eligi ble based on patient's age to complete this topic Meningococcal ACWY Vaccine Aged Out N o longer eligible based on patient's age to complete this topic Meningococcal B Vacine Aged Out No lo nger eligible based on patient's age to complete this topic RSV Immunization Patients Under 20 months Aged Out No longer eligible b ased on patient's age to complete this topic Varicella Vaccines Aged Out No longer eligible based on patient's age to complete this topic Insurance ([facility]) Care Teams Divorce Attorney Relationship Specialty Start Date End Date Juancarlos Phoenix MD [address] [place] [address] PCP - General Internal Medicine 04/05/18
[2024-11-04 09:53] LABS: Anion Gap 11 (12-20); Blood Urea Nitrogen 16 mg/dL (9-16); Calcium 9.8 mg/dL (8.4-10.2); Carbon Dioxide 25 mmol/L (22-29); Chloride 107 mmol/L (96-108); Estimated Glomerular Filt Rate > 60; Glucose Random 116 mg/dL (60-115); Sodium 139 mmol/L (135-145)
== END 2024-11-04 08:54 | disposition home or self-care (01) ==
LOC: HO.BBR 08:53
PROVIDERS: PCP Internal Medicine; Visit Provider Internal Medicine
DX: D45 Polycythemia vera (principal)
CPT/HCPCS: 36415; 80048; 85014; 85018; 85025; 99195

== ENCOUNTER 2025-03-03 08:58 | Outpatient (REF) | payer BC, SELFPAY ==
--- OUTSIDE RECORDS SUMMARY | 2025-03-03 09:10 | XMS_ITS ---
Author Name [facility] Organization Unknown Encounters Encounter Type Encounter Reason Primary Diagnosis Location Date Ambulatory [facility] 07/12/2024 Care Team Organization Name Specialty Phone Email Start Date End Da te [facility] 2024 Office of the Physician Internist ([facility]) 07/29/2024
== END 2025-03-03 08:59 | disposition home or self-care (01) ==
LOC: HO.BBR 08:58
PROVIDERS: PCP Internal Medicine; Visit Provider Internal Medicine
DX: D45 Polycythemia vera (principal)
CPT/HCPCS: 85014; 85018; 99195

== ENCOUNTER 2025-05-08 15:43 | Outpatient (AMB) | payer BC, SELFPAY ==
--- OUTSIDE RECORDS SUMMARY | 2022-07-08 | XMS_ITS | Encounter Summary ---
Author Organization [facility] Address [address] [facility] [address] [place] [address] Phone Care Team Providers Care Box Office Clerk Name Role Phone Unavailable Primary Care Provider Unavailabl e Encounter Details Date Type Department Care Team (Late st Contact Info) Description 07/08/2022 Hospital Encounter [facility] [address] [place] [address] Howard Quintana MD [address] [place] [phone] [email or web address] [email or web address] .[facility] Social History Tobacco Use Types Packs/Day Years [...] It is not the complete legal health record.[facility]
--- OUTSIDE RECORDS SUMMARY | 2025-05-08 17:44 | XMS_ITS | Clinical Summary ---
Author Organization [facility] Address [address] [address] Phone Care Team Providers Care Vision Teacher Name Role Phone Pcp, Not Required Primary Care Provider Unavaila ble Allergies Active Allergy Reactions Criticality Noted Date Comments Cat/Feline Products 04/01/2023 Dog Dander 04/01/2023 Pollen Extracts 02/19/2023 Ragweed 04/01/2023 Medications albuterol 90 mcg/actuation inhaler INHALE 1 PUFF ONCE OR TWICE A DAY 3 Active amLODIPine-shelbie zepril (LOTREL) 10-20 mg per capsule TAKE 1 CAPSULE BY MOUTH EVERY DAY ORALLY DAILY 90 DAYS 3 Active azelastine (ASTELIN) 137 mcg (0.1 %) nasal spray USE 2 SPRAYS NASALLY TWICE A DAY DIRECTED 3 Active celecoxib (CELEBREX) 200 MG capsule TAKE ONE CAPSULE BY MOUTH DAILY WITH FOOD AND WATER 3 Active eszopiclone (LUNESTA) 2 MG Tab TAKE 1 TABLET BY MOUTH IMMEDIATELY BEFORE BEDTIME ONCE NIGHTLY 3 Active fenofibrate (LOFIBRA) 160 MG tablet Take 1 tablet by mouth daily. Active fexofenadine (GIOVANY) 180 MG tablet TAKE 1 TABLET BY MOUTH EVERY DAY NEEDED FOR 90 DAYS*OTC NOT COVERED* 3 Active fluvastatin XL (LESCOL XL) 80 mg 24 hr tablet Take 80 mg by mouth every evening. 3 Active LORazepam (ATIVAN) 0.5 MG tablet TAKE 1 TABLET BY MOUTH EVERY DAY AT BEDTIME NEEDED FOR 14 DAYS 3 Active ipratropium (ATROVENT) 42 mcg (0.06 %) nasal spray USE 1 SPRAY IN EACH NOSTRIL TWICE A DAY 3 Active montelukast (SINGULAIR) 10 mg tablet Take 10 mg by mouth every evening. 3 Active omega 5-IGZ-ECK-fish oil (FISH OIL) 60-90-500 mg capsule 1 capsule. Active pantoprazole (PROTONIX) 40 MG tablet Take 1 tablet by mouth every morning. 3 Active polyethylene glycol 3350 (MIRALAX ORAL) Take 17 g by mouth. 2 Active tadalafiL (CIALIS, ADCIRCA) 20 MG tablet TAKE 1 TABLET BY MOUTH ONCE A DAY NEEDED FOR SEX X 30 DAYS 3 Active tamsulosin (FLOMAX) 0.4 mg Cap TAKE 1 CAPSULE BY MOUTH EVERY DAY FOR 90 DAYS 3 Active hydroCHLOROthia zide (HYDRODIURIL) 25 MG tablet TAKE 1 TABLET BY MOUTH EVERY DAY IN THE MORNING FOR 90 DAYS 3 Active valACYclovir (VALTREX) 1000 MG tablet Take 1 tablet by mouth every morning. 3 Active predniSONE (DELTASONE) 10 MG tablet 4 tabs x3 days, then 3 tabs x3 days, then 2 tabs x 3 days, then 1 tab x 3 days Orally Once a day for 12 days 3 Active aspirin 81 mg chewable tablet 1 tablet Orally Once a day for 30 day(s) Active oxymetazoline (AFRIN) 0.05 % nasal spray 2 sprays by Nasal route 2 (two) times a day. Has been using every night for 20 years Active fluticasone propionate (FLONASE) 50 mcg/actuation nasal spray 1 spray by Nasal route daily. Active acetaminophen (TYLENOL) 500 MG tablet Take 1,000 mg by mouth every 6 (six) hours as needed for pain (specific location in comments). Active oxyCODONE 5 MG immediate release tablet Take 1 tablet (5 mg total) by mouth every 4 (four) hours as needed. Partial fill ok 10 tablet 3 Active acetaminophen (TYLENOL) 325 mg tablet Take 2 tablets (650 mg total) by mouth every 6 (six) hours as needed. 0 Active Active Problems Problem Noted Date Diagnosed Date Chronic sinusitis 12/08/2022 Nasal obstruction 12/08/2022 Chronic nasal congestion 12/08/2022 Chronic rhinitis 12/08/2022 Postnasal drip 12/08/2022 Allergic rhinitis 12/08/2022 History of deviated nasal septum 12/08/2022 Hypertrophy of nasal turbinates 12/08/2022 Social History Tobacco Use Types Packs/Day Years [...] on file Sexual Orientation Not on file Last Filed Vital Signs Vital Sign Reading Time Taken Comments Blood Pressure 156/85 04/01/2023 3:00 PM EDT Pulse 88 04/01/2023 3:00 PM EDT Temperature 36.4 C (97.6 F) 04/01/2023 2:09 PM EDT Respiratory Rate 16 04/01/2023 3:00 PM EDT Oxygen Saturation 95% 04/01/2023 3:00 PM EDT Inhaled Oxygen Concentration - - Weight 122.5 kg (270 lb) 04/01/2023 8:55 AM EDT Height 200.7 cm (6' 7 ) 04/01/2023 8:55 AM EDT Body Mass Index 30.42 04/01/2023 8:55 AM EDT Plan of Treatment Health Maintenance Due Date Last Done Comments Adult Td,Tdap Booster 1962 CREATININE LEVEL 1962 LIPID PANEL 1962 POTASSIUM LEVEL 1962 DEPRESSION SCREENING 1974 HEPATITIS C SCREENING 1980 HIV ONE-TIME SCREENING (18-6 5 YEARS) 1980 SCREENING FOR DIABETES 1997 COLOGUARD 12/03/2007 COLONOSCOPY 12/03/2007 COLORECTAL CANCER SCREENING 12/03/2007 FIT TEST 12/03/2007 FOBT 12/03/2007 SIGMOIDOSCOPY 12/03/2007 VIRTUAL COLONOSCOPY 12/03/2007 PNEUMOCOCCAL VACCINES (50+ years) (1 of 1 - PCV) 2012 COVID-19 VACCINE (4 - 2023-2 5 season) 2024 07/27/2021, 10/21/2020, 09/23/2020 RSV VACCINE (1 - 1-dose 75+ series) 2037 ZOSTER VACCINES Completed 09/29/2021, 07/07/2021 SMOKING STATUS SCREENING (On ce After 26 Yrs) Completed 04/01/2023 HEPATITIS A VACCINES Aged Out No long er eligible based on patient's age to complete this topic HIB VACCINES Aged Out No longer eligi ble based on patient's age to complete this topic MENINGOCOCCAL VACCINES (ACWY) Aged Out No longer eligible based on patient's age to complete this topic MENINGOCOCCAL VACCINES (B) Aged Out N o longer eligible based on patient's age to complete this topic Medical Devices Implanted Type Area Drapery [employer] Uphol[employer] Measurer Device Identifier Shelf Expiration Date Model / Serial / Lot Prosthetic Joint Prosthetic Joint Knee Dental Insurance [facility] [employer] P[employer] BLUE CROSS OUT OF STATE PPO BLUE CROSS OUT OF STATE PPO BLUE CROSS OUT OF STATE PPO BLUE CROSS OUT OF STATE PPO BLUE CROSS OUT OF STATE PPO Care Teams Vision Teacher Relationship Specialty Start Date End Date Pcp, Not Required [address] [place] [id number] PCP - General 11/17/22 Additional Source Comments The information contained in this document represents components of the legal health record. It is not the complete legal health record.[facility]
--- OUTSIDE RECORDS SUMMARY | 2025-05-08 17:44 | XMS_ITS | Patient Health Record ---
Author Organization [facility] [address] Address [address] [place] [address] Care Team Providers Care Penal Officer Name Role Phone KAMALA ZIEGLER Primary Care Provider ESTELITA FRANCO Unavailable [phone] Allergies No Known Allergies Results Component Value Reference Range Notes ERYTHROPOIETIN Reviewed date:01/11/2025 08:31:07 AM Interpretation: Performing Lab: Notes/Report: Erythropoietin 14.9 2.6-18.5 mIU/mL Test performed at [facility], [address] [place] [id number] Brenda Becerra MD, PhD - Heating Mechanic CALRETICULIN MUTATION ANALYS IS Reviewed date:01/09/2025 02:23:21 PM Interpretation: Performing Lab: Notes/Report: Habilitative Interventionist: Ashkan Quiñones [facility], Phone: [phone] [address], [facility], [place] [id number] Performed at: [facility] [place] Habilitative Interventionist: Ashkan Quiñones [facility], Phone: [phone] [address] [facility], [place], [place] [id number] Performed at: [facility] [place] Calreticulin (CALR) Mutation Detection Result NEGATIVE No insertions or deletions were detected within the analyzed region of the calreticulin (CALR) gene. A negative result does not entirely exclude the possibility of a clonal population carrying CALR gene mutations that are not covered by this assay. Results should be interpreted in conjunction with clinical and laboratory findings for the most accurate interpretation. Background: Note The calreticulin (CALR) gene, is somatically mutated in approximately 70% of patients with JAK2-negative essential thrombocythemia (ET) and 60-88% of patients with JAK2-negative primary myelofibrosis(PMF). Only a minority of patients (approximately 8%) with myelodysplasia have mutations in the CALR gene. CALR mutations are rarely detected in patients with de jeremi acute myeloid leukemia, chronic myelogenous leukemia, lymphoid leukemia, or solid tumors. CALR mutations are not detected in polycythemia and generally appear to be mutually exclusive with JAK2 mutations and MPL mutations. The majority of mutational changes involve a variety of insertion or deletion mutations in exon 9 of the calreticulin gene: approximately 53% of all CALR mutations are a 52 bp deletion (type-1) while the second most prevalent mutation (approximately 32%) contains a 5 bp insertion (type-2). Other mutations (non-type 1 or type 2) are seen in a small minority of cases. CALR mutations in PMF tend to be associated with a favorable prognosis compared to JAK2 V617F mutations, whereas primary myelofibrosis negative for CALR, JAK2 V617F and MPL mutations (so-called triple negative) is associated with a poor prognosis and shorter survival. The detection of a CALR gene mutation aids in the specific diagnosis of a myeloproliferative neoplasm, and help distinguish this clonal disease from a benign reactive process Methodology: Note Genomic DNA was isolated from the provided specimen. Polymerase chain reaction (PCR) of exon 9 of the CALR gene was performed with specific fluorescent-labeled primers, and the PCR product was analyzed by capillary gel electrophoresis to determine the size of the PCR products. This PCR assay is capable of detecting a mutant cell population with a sensitivity of 5 mutant cells per 100 normal cells. A negative result does not exclude the presence of a myeloproliferative disorder or other neoplastic process. This test was developed and its performance characteristics determined by [facility]. It has not been cleared or approved by the Food and Drug Administration. The FDA has determined that such clearance or approval is not necessary. References Note 1. Jos Plata et al. (2013) Somatic mutations of calreticulin in myeloproliferative neoplasms. [place]. J. Med. 369:9200-3096. 2. Analilia Minaya et al. (2013) Somatic CALR mutations in myeloproliferative neoplasms with nonmutated JAK2. [place]. J. Med. 369:1190-6522. Director Review: Technical Component performed at [facility] [place] Professional Component performed by: Curly Schaeffer, PhD, [facility] Director, Molecular Oncology [facility], [address] [address] CBC WITH AUTO DIFFERENTIAL Reviewed date:01/17/2025 08:55:39 AM Interpretation: Performing Lab: Notes/Report: WBC 5.7 4.8-10.8 K/mcL RBC 5.20 4.50-5.50 M/mcL Hemoglobin 17.1 13.5-17.5 g/dL Hematocrit 49.2 42.0-54.0 % MCV 95.2 79.0-98.0 FL MCH 33.1 27.0-32.0 pcg MCHC 34.8 32.0-37.0 g/dL RDW 11.9 11.0-15.0 % Platelets 249 130-400 K/mcL MPV 9.4 7.0-11.0 FL NRBC 0.0 <1.0 % NRBC Absolute 0.00 <0.10 K/mcL Neutrophils Relative 51.5 Lymphocytes Relative 36.1 Monocytes Relative 9.1 Eosinophils Relative 2.8 Basophils Relative 0.3 Immature Granulocytes Relative 0.2 Neutrophils Absolute 2.96 1.50-7.00 K/mcL Lymphocytes Absolute 2.07 1.00-5.00 K/mcL Monocytes Absolute 0.52 0.20-1.00 K/mcL Eosinophils Absolute 0.16 0.00-0.50 K/mcL Basophils Absolute 0.02 0.00-0.20 K/mcL Immature Granulocytes Absolute 0.01 0.00-0.03 K/mcL RETICULOCYTE COUNT Reviewed date:01/09/2025 02:23:21 PM Interpretation: Performing Lab: Notes/Report: Retic Ct Abs 0.080 0.030-0.090 M/mcL Retic Ct Pct 1.7 0.7-1.7 % Immature Retic Fract 7.6 2.3-15.9 % Reticulocyte Hemoglobin 37.8 >29.0 pcg SEX HORMONE BINDING GLOBULIN Reviewed date:01/17/2025 11:20:20 AM Interpretation: Performing Lab: Notes/Report: Sex Hormone Binding 25.2 See Comment nmol/L FEMALES: pre-menopausal 10.8 - >180 post-menopausal 23.2 - 159.1 MALES: 21-49 years 14.6 - 94.6 50-89 years 21.6 - 113.1 CHILDREN: No established reference range Over the counter supplements containing high doses of biotin may interfere with this assay. If interference is suspected, patients should be retested after refraining from biotin supplements for 72 hours. TESTOSTERONE FREE, BIOAVAILA BLE AND TOTAL Reviewed date:01/17/2025 11:20:20 AM Interpretation: Performing Lab: Notes/Report: Testosterone 254 229-902 ng/dL Testosterone, Free 5.9 4.6-22.4 ng/dL Testosterone, Bioavailable 129 110-575 ng/dL Sex Hormone Binding 25.2 See Comment nmol/L FEMALES: pre-menopausal 10.8 - >180 post-menopausal 23.2 - 159.1 MALES: 21-49 years 14.6 - 94.6 50-89 years 21.6 - 113.1 CHILDREN: No established reference range Over the counter supplements containing high doses of biotin may interfere with this assay. If interference is suspected, patients should be retested after refraining from biotin supplements for 72 hours. Albumin 4.0 3.2-5.0 g/dL LUTEINIZING HORMONE Reviewed date:01/17/2025 11:20:20 AM Interpretation: Performing Lab: Notes/Report: Luteinizing Hormone 5.5 1.2-10.6 mIU/mL FOLLICLE STIMULATING HORMONE Reviewed date:01/17/2025 11:20:20 AM Interpretation: Performing Lab: Notes/Report: Follicle Stimulating Hormone 15.3 0.7-10.8 mIU/mL HEMOGLOBIN A1C Reviewed date:01/17/2025 11:20:20 AM Interpretation: Performing Lab: Notes/Report: Hemoglobin A1C 5.8 <6.5 % Mean Bld Glu Estim. 120 URINALYSIS WITH REFLEX MICRO SCOPIC AND CULTURE Reviewed date:01/26/2025 08:24:51 AM Interpretation: Performing Lab: Notes/Report: Specific [place] Urine 1.031 1.003-1.030 pH, Urine 6.0 5.0-8.0 pH Leukocytes, Urine Negative Negative Nitrite, Urine Negative Negative Protein, Urine Trace <=Trace mg/dL Glucose, Urine Negative Negative mg/dL Ketones, Urine Trace Negative mg/dL Urobilinogen, Urine 1.0 0.2-1.0 mg/dL Bilirubin, Urine Negative Negative Blood, Urine Negative Negative URINALYSIS MICROSCOPIC ONLY Reviewed date:01/17/2025 08:55:39 AM Interpretation: Performing Lab: Notes/Report: RBC, Urine 8.5 0-4 /HPF WBC, Urine 1.2 0-4 /HPF Squamous Epithelial, Urine 14 0-60 /LPF Bacteria, Urine Negative Negative /HPF Hyaline Casts, Urine 3.2 0-3 /LPF COMPREHENSIVE METABOLIC PANE L Reviewed date:01/17/2025 08:55:39 AM Interpretation: Performing Lab: Notes/Report: Sodium 141 133-145 mmol/L Potassium 4.1 3.5-5.5 mmol/L Chloride 107 96-110 mmol/L CO2 27 21-32 mmol/L Anion Gap 7 3-11 Glucose 116 70-100 mg/dL BUN 17 5-25 mg/dL Creatinine 0.99 0.70-1.30 mg/dL eGFR 86 >=60 mL/min/1.73m2 Calculati on based on the?Chronic Kidney Disease Epidemiology Collaboration (CKD-EPI) equation refit?without adjustment for race. BUN/Creatinine Ratio 17.2 Calcium 9.8 8.5-10.5 mg/dL AST (SGOT) 27 10-42 unit/L ALT (SGPT) 49 10-60 unit/L Alkaline Phosphatase 83 42-121 unit/L Total Protein 7.4 6.0-8.0 g/dL Albumin 4.0 3.2-5.0 g/dL Total Bilirubin 0.7 0.0-1.4 mg/dL THYROID STIMULATING HORMONE Reviewed date:01/17/2025 11:20:20 AM Interpretation: Performing Lab: Notes/Report: TSH 2.42 0.40-4.00 mcIU/mL VITAMIN D 25 HYDROXY Reviewed date:01/17/2025 11:20:24 AM Interpretation: Performing Lab: Notes/Report: Vit D, 25-Hydroxy 40.3 30.0-80.0 ng/mL LIPID PANEL WITH REFLEX TO D IRECT LDL Reviewed date:01/17/2025 11:20:20 AM Interpretation: Performing Lab: Notes/Report: Cholesterol 157 0-200 mg/dL Triglycerides 154 0-150 mg/dL HDL 38 >=40 mg/dL LDL Calculated 88 0-100 mg/dL VLDL Cholesterol Basil 30.8 Non HDL Chol. (LDL+VLDL) 119 <145 mg/dL Chol/HDL Ratio 4.1 0.0-4.4 CBC WITH AUTO DIFFERENTIAL Reviewed date:01/09/2025 02:29:41 PM Interpretation: Performing Lab: Notes/Report: WBC 6.3 4.8-10.8 K/mcL RBC 4.90 4.50-5.50 M/mcL Hemoglobin 16.6 13.5-17.5 g/dL Hematocrit 46.4 42.0-54.0 % MCV 95.1 79.0-98.0 FL MCH 34.0 27.0-32.0 pcg MCHC 35.8 32.0-37.0 g/dL RDW 11.9 11.0-15.0 % Platelets 227 130-400 K/mcL MPV 9.5 7.0-11.0 FL NRBC 0.0 <1.0 % NRBC Absolute 0.00 <0.10 K/mcL Neutrophils Relative 46.4 Lymphocytes Relative 38.7 Monocytes Relative 11.1 Eosinophils Relative 2.7 Basophils Relative 0.8 Immature Granulocytes Relative 0.3 Neutrophils Absolute 2.93 1.50-7.00 K/mcL Lymphocytes Absolute 2.44 1.00-5.00 K/mcL Monocytes Absolute 0.70 0.20-1.00 K/mcL Eosinophils Absolute 0.17 0.00-0.50 K/mcL Basophils Absolute 0.05 0.00-0.20 K/mcL Immature Granulocytes Absolute 0.02 0.00-0.03 K/mcL Prostate-Specific Ag-[id number] Reviewed date:11/26/2024 08:46:36 AM Interpretation: Performing Lab:[facility], [address] [place] [address], [place], Phone - [phone], Director - Rebecca Notes/Report: Prostate Specific Ag 0.4 0.0-4.0 ng/mL Itzel ECLIA methodology. . According to the [place] [employer], Serum PSA should decrease and remain at undetectable levels after radical prostatectomy. The AUA defines biochemical recurrence as an initial PSA value 0.2 ng/mL or greater followed by a subsequent confirmatory PSA value 0.2 ng/mL or greater. Values obtained with different assay methods or kits cannot be used interchangeably. Results cannot be interpreted as absolute evidence of the presence or absence of malignant disease. Reason For Referral No Information Medications Medication SIG (Take, Route, Frequency, Duration) Notes Start Date End Date Status Tamsulosin HCl 0.4 MG TAKE 1 CAPSULE BY MOUTH EVERY DAY; Duration: 90 Active Montelukast Sodium 10 MG 1 tablet Orally daily; Duration: 90 days Active LORazepam 0.5 MG 1 tablet Orally Once a day prn; Duration: 30 days 06/15/2024 Not-Taking LORazepam 0.5 MG 1 tablet at bedtime as needed Orally Once a day; Duration: 30 days 04/27/2025 Active valACYclovir HCl 1 GM TAKE 1 TABLET BY M OUT EVERY DAY; Duration: 90 Active Fluvastatin Sodium ER 80 MG TAKE 1 TABLET BY MOUTH EVERY DAY IN THE EVENING; Duration: 90 Active Losartan Potassium 100 MG 1 tablet Orall y Once a day; Duration: 90 days Active amLODIPine Besylate 10 MG TAKE 1 TABLET BY MOUTH EVERY DAY FOR 90 DAYS; Duration: 90 Active Pantoprazole Sodium 40 MG TAKE 1 TABLET BY MOUTH EVERY DAY; Duration: 90 Active Tadalafil 20 MG TAKE 1 TABLET BY GEORGETTE TH ONCE A DAY NEEDED FOR SEX X 30 DAYS; Duration: 30 Active Fish Oil 500 MG 1 capsule Orally Twi ce a day; Duration: 30 day(s) Active Aspir-81 81 MG 1 tablet Orally Once a day; Duration: 30 day(s) Active Multi For Him - as directed Orally Active Fluticasone Propionate 50 MCG/ACT 1 spray in each nostril Nasally Once a day Active CeleBREX 200 MG 1 capsule with food Orally Once a day Not-Taking Eszopiclone 2 MG TAKE 1 TABLET BY GEORGETTE TH IMMEDIATELY BEFORE BEDTIME; Duration: 90 04/20/2025 Active cloNIDine HCl 0.1 MG TAKE 1 TABLET BY [facility] TWICE A DAY FOR 90 DAYS; Duration: 90 Active Fluticasone Propionate 50 MCG/ACT 1 spray in each nostril Nasally Once a day; Duration: 30 days 04/27/2025 Active traZODone HCl 50 MG 1-2 tablet at bedtim e as needed Orally daily; Duration: 30 days 01/25/2025 Not-Taking Immunizations Vaccine Route Administration Date Status Comme nts Flu vaccine no Preserv 3 and > IM Intramuscular 08/26/2022 Administered Flu vaccine no Preserv 3 and > IM Intramuscular 06/14/2024 Administered influenza IM Intramuscular 08/03/2018 Administered influenza IM Intramuscular 05/30/2020 Administered Social History Tobacco Use: Social History Observation Description Date Details (start date - stop date) Never Smoker NA - NA Tobacco Use/Smoking Question Answer Notes Are you [...] the gym.does not smoke or abuse alcohol Problems Problem Type SNOMED Code ICD Code Onset Dates Problem Status W/U Status Risk Notes Problem Polycythemia vera (411100236) Polycythemia vera (D45) Active confirmed Problem Testicular hypofunction (700418303) Testicular hypofunction (E29.1) Active confirmed Problem Vitamin D deficiency (07659196) Vitamin D deficiency, unspecified (E55.9) Active confirmed Problem Hyperlipidemia (17871903) Hyperlipidemia, unspecified (E78.5) Active confirmed Problem Primary insomnia (9171433) Primary insomnia (F51.01) Active confirmed Problem Insomnia (537839462) Other insomnia (G47.09) Active confirmed Problem Essential hypertension (20115869) Essential (primary) hypertension (I10) Active confirmed Problem Allergic rhinitis (17513697) Allergic rhinitis, unspecified (J30.9) Active confirmed Problem Chronic rhinitis (74802206) Chronic rhinitis (J31.0) Active confirmed Problem Chronic sinusitis (14935910) Chronic sinusitis, unspecified (J32.9) Active confirmed Problem Adult health examination (694299833) Encounter for general adult medical examination without abnormal findings (Z00.00) Active confirmed Problem Screening for malignant neoplasm of prostate (076240816) Encounter for screening for malignant neoplasm of prostate (Z12.5) Active confirmed Problem Screening for malignant neoplasm of skin (454558884) Encounter for screening for malignant neoplasm of skin (Z12.83) Active confirmed Problem Lipid screening (137053497) Encounter for screening for lipoid disorders (Z13.220) Active confirmed Problem Adult health examination (770974475) Adult general medical exam (Z00.00) Active confirmed Problem Vitamin D deficiency (91345671) Vitamin D deficiency (E55.9) Active confirmed Problem Male hypogonadism (63054323) Hypogonadism male (E29.1) Active confirmed Problem Diabetes mellitus screening (052927882) Diabetes mellitus screening (Z13.1) Active confirmed Problem Obstructive sleep apnea (15543443) Obstructive sleep apnea (G47.33) Active confirmed Problem Endocrine/metaboli c screening (687701171) Encounter for screening for endocrine disorder (Z13.29) Active confirmed Problem Screening for malignant neoplasm of prostate (290088072) Encounter for prostate cancer screening (Z12.5) Active confirmed Problem Left bundle branch block (10903750) LBBB (left bundle branch block) (I44.7) Active confirmed Problem Right bundle branch block (91806776) Right bundle branch block (RBBB) (I45.10) Active confirmed Vital Signs Heart Rate 83 /min 04/27/2025 Blood pressure diastolic 80 mm Hg 04/27/2025 Oximetry 97 % 04/27/2025 Height 79 in 04/27/2025 Blood pressure systolic 130 mm Hg 04/27/2025 Weight 281 lbs 04/27/2025 BMI 31.65 kg/m2 04/27/2025 Encounters Encounter Location Date Provider Diagnosis [facility] [address] [place] [id number] 06/14/2024 TALAL ZIEGLER Hyperlipidemia, unspecified E78.5 ; Essential (primary) hypertension I10 ; Encounter for immunization Z23 ; Achilles tendinitis, left leg M76.62 ; Polycythemia vera D45 ; Hypogonadism male E29.1 and Sleep concern Z76.89 [facility] [address] 09/21/2024 ESTELITA BORHOT Essential (primary) hypertension I10 ; Testicular hypofunction E29.1 ; Polycythemia vera D45 ; Obstructive sleep apnea G47.33 and Right bundle branch block (RBBB) I45.10 [facility] [address] 12/08/2024 ESTELITA BORHOT Essential (primary) hypertension I10 ; Annual physical exam Z00.00 ; Testicular hypofunction E29.1 ; Polycythemia vera D45 ; Obstructive sleep apnea G47.33 and Right bundle branch block (RBBB) I45.10 [facility] [address] 01/25/2025 ESTELITA BORHOT Essential (primary) hypertension I10 ; Testicular hypofunction E29.1 ; Polycythemia vera D45 ; Obstructive sleep apnea G47.33 ; LBBB (left bundle branch block) I44.7 and Asymptomatic microscopic hematuria R31.21 [facility] [address] 04/27/2025 ESTELITA BORHOT Essential (primary) hypertension I10 ; Testicular hypofunction E29.1 ; Polycythemia vera D45 ; Obstructive sleep apnea G47.33 ; LBBB (left bundle branch block) I44.7 and Encounter for examination of blood pressure without abnormal findings Z01.30 [facility] [address] 06/15/2024 KAMALA ZIEGLER [facility] [address] 07/25/2024 TALCHAVA ZIEGLER [facility] [address] 10/07/2024 ESTELITA FRANCO [facility] [address] [place] [address] 10/24/2024 ESTELITA BORHOT [facility] [address] 10/24/2024 ESTELITA BORHOT [facility] [address] [place] [address] 12/19/2024 ESTELITA BORHOT [facility] [address] [place] [address] 12/19/2024 ESTELITA BORHOT [facility] [address] [place] [address] 12/19/2024 KAMALA ZIEGLER [facility] [address] [facility] [address] [place] [address] 12/23/2024 ESTELITA BORHOT [facility] [address] [facility] [address] [place] [address] 04/20/2025 ESTELITA SHADHOT Assessments Encounter Date Diagnosis (ICD Code) Assessment Notes Treatment Notes Treatment Clinical Notes Section Notes 06/14/2024 Hyperlipidemia, unspecified (ICD-10 - E78.5) Hx of HTN - 118/90 today in office. Continue medication adherence with losartan/HCTZ, amlodipine, and clonidine. Hx of HLD - patient is adherent to statin therapy. Continue medication and healthy eating. Hx of achilles tendonitis - currently using celebrex, doing well. Continue tates stretching and doing light exercise. Hx polycythemia vera - follows-up with core assembly supervisor for phlebotomy. Last treatment was April, [...] daily - prescribed by Dr. Pendleton [facility]. Patient is most likely feeling [...] exercise. Hx polycythemia vera - follows-up with core assembly supervisor for phlebotomy. Last treatment was April, [...] daily - prescribed by Dr. Pendleton at [facility]. Patient is most likely feeling [...] is downtrending He gets therapeutic draws at [facility] Will get updated comprehensive labs including [...] software and direct typing Please excuse inadvertent plaster mold maker or typing errors, or uncorrected word substitutions Although every attempt has been made by the provider to proofread this document, occasional misspellings and typographical errors may still be present Due to the previous pandemic, and the use of personal protective equipment (PPE) This may decrease voice recognition accuracy Inadvertent plaster mold maker errors may occur 09/21/2024 Essential (primary) hypertension (ICD-10 - I10) Most recent hemoglobin is downtrending He gets therapeutic draws at [facility] Will get updated comprehensive labs including [...] software and direct typing Please excuse inadvertent plaster mold maker or typing errors, or uncorrected word substitutions Although every attempt has been made by the provider to proofread this document, occasional misspellings and typographical errors may still be present Due to the previous pandemic, and the use of personal protective equipment (PPE) This may decrease voice recognition accuracy Inadvertent plaster mold maker errors may occur 01/25/2025 Essential (primary) hypertension (ICD-10 - I10) Acute Concerns/Problem List: 01/25/2025 Erythrocytosis, Followed by hematology He gets therapeutic draws at [facility] echo upcoming Otherwise unremarkable Coronary calcium CT score of 0 Encourage taking BP at home in relaxed state, record home readings: Reading were good. Losartan max dosing along with amlodipine as well as clonidine Will follow-up in 3 to 4 months regarding blood pressure monitoring Start Trazadone for Anxiety/ Sleep Refilled eszopiclone Of note, some information is being carried forward from prior records for informational purposes only and is being cited so that efficiency, safety and quality of the patient's care is not compromised This note was prepared using voice recognition software and direct typing Please excuse inadvertent plaster mold maker or typing errors, or uncorrected word substitutions Although every attempt has been made by the provider to proofread this document, occasional misspellings and typographical errors may still be present Due to the previous pandemic, and the use of personal protective equipment (PPE) This may decrease voice recognition accuracy Inadvertent plaster mold maker errors may occuras 04/27/2025 Essential (primary) hypertension (ICD-10 - I10) Acute Concerns/Problem List: 01/25/2025 Continue Flonase Singulair and immunotherapy shots Continue Lunesta at bedtime, as needed lorazepam Erythrocytosis, Followed by hematology He gets therapeutic draws at [facility] echo upcoming Otherwise unremarkable Coronary calcium CT score of 0 BP stable Losartan max dosing along with amlodipine as well as clonidine Of note, some information is being carried forward from prior records for informational purposes only and is being cited so that efficiency, safety and quality of the patient's care is not compromised This note was prepared using voice recognition software and direct typing Please excuse inadvertent plaster mold maker or typing errors, or uncorrected word substitutions Although every attempt has been made by the provider to proofread this document, occasional misspellings and typographical errors may still be present Due to the previous pandemic, and the use of personal protective equipment (PPE) This may decrease voice recognition accuracy Inadvertent plaster mold maker errors may occuras 12/08/2024 Essential (primary) hypertension (ICD-10 - I10) Acute Concerns/Problem List: 12/08/2024 Hypogonadism labs, update other comprehensive labs including CBC with differential He gets therapeutic draws at [facility] echo upcoming 12/[address] score of 0 Encourage taking BP at home in relaxed state, record home readings Losartan max dosing along with amlodipine as well as clonidine Will follow-up in 2 to 4 weeks regarding blood pressure monitoring Of note, some information is being carried forward from prior records for informational purposes only and is being cited so that efficiency, safety and quality of the patient's care is not compromised This note was prepared using voice recognition software and direct typing Please excuse inadvertent plaster mold maker or typing errors, or uncorrected word substitutions Although every attempt has been made by the provider to proofread this document, occasional misspellings and typographical errors may still be present Due to the previous pandemic, and the use of personal protective equipment (PPE) This may decrease voice recognition accuracy Inadvertent plaster mold maker errors may occur 12/08/2024 Annual physical exam (ICD-10 - Z00.00) Acute Concerns/Problem List: 12/08/2024 Hypogonadism labs, update other comprehensive labs including CBC with differential He gets therapeutic draws at [facility] echo upcoming 12/2024 [facility] Coronary calcium CT score of 0 Encourage taking BP at home in relaxed state, record home readings Losartan max dosing along with amlodipine as well as clonidine Will follow-up in 2 to 4 weeks regarding blood pressure monitoring Of note, some information is being carried forward from prior records for informational purposes only and is being cited so that efficiency, safety and quality of the patient's care is not compromised This note was prepared using voice recognition software and direct typing Please excuse inadvertent plaster mold maker or typing errors, or uncorrected word substitutions Although every attempt has been made by the provider to proofread this document, occasional misspellings and typographical errors may still be present Due to the previous pandemic, and the use of personal protective equipment (PPE) This may decrease voice recognition accuracy Inadvertent plaster mold maker errors may occur 12/08/2024 Testicular hypofunction (ICD-10 - E29.1) Acute Concerns/Problem List: 12/08/2024 Hypogonadism labs, update other comprehensive labs including CBC with differential He gets therapeutic draws at [facility] echo upcoming 12/[address] score of 0 Encourage taking BP at home in relaxed state, record home readings Losartan max dosing along with amlodipine as well as clonidine Will follow-up in 2 to 4 weeks regarding blood pressure monitoring Of note, some information is being carried forward from prior records for informational purposes only and is being cited so that efficiency, safety and quality of the patient's care is not compromised This note was prepared using voice recognition software and direct typing Please excuse inadvertent plaster mold maker or typing errors, or uncorrected word substitutions Although every attempt has been made by the provider to proofread this document, occasional misspellings and typographical errors may still be present Due to the previous pandemic, and the use of personal protective equipment (PPE) This may decrease voice recognition accuracy Inadvertent plaster mold maker errors may occur 04/27/2025 Testicular hypofunction (ICD-10 - E29.1) Acute Concerns/Problem List: 01/25/2025 Continue Flonase Singulair and immunotherapy shots Continue Lunesta at bedtime, as needed lorazepam Erythrocytosis, Followed by hematology He gets therapeutic draws at [facility] echo upcoming Otherwise unremarkable Coronary calcium CT score of 0 BP stable Losartan max dosing along with amlodipine as well as clonidine Of note, some information is being carried forward from prior records for informational purposes only and is being cited so that efficiency, safety and quality of the patient's care is not compromised This note was prepared using voice recognition software and direct typing Please excuse inadvertent plaster mold maker or typing errors, or uncorrected word substitutions Although every attempt has been made by the provider to proofread this document, occasional misspellings and typographical errors may still be present Due to the previous pandemic, and the use of personal protective equipment (PPE) This may decrease voice recognition accuracy Inadvertent plaster mold maker errors may occuras 09/21/2024 Polycythemia vera (ICD-10 - D45) Most recent hemoglobin is downtrending He gets therapeutic draws at [facility] Will get updated comprehensive labs including [...] software and direct typing Please excuse inadvertent plaster mold maker or typing errors, or uncorrected word substitutions Although every attempt has been made by the provider to proofread this document, occasional misspellings and typographical errors may still be present Due to the previous pandemic, and the use of personal protective equipment (PPE) This may decrease voice recognition accuracy Inadvertent plaster mold maker errors may occur 01/25/2025 Testicular hypofunction (ICD-10 - E29.1) Acute Concerns/Problem List: 01/25/2025 Erythrocytosis, Followed by hematology He gets therapeutic draws at [facility] echo upcoming Otherwise unremarkable Coronary calcium CT score of 0 Encourage taking BP at home in relaxed state, record home readings: Reading were good. Losartan max dosing along with amlodipine as well as clonidine Will follow-up in 3 to 4 months regarding blood pressure monitoring Start Trazadone for Anxiety/ Sleep Refilled eszopiclone Of note, some information is being carried forward from prior records for informational purposes only and is being cited so that efficiency, safety and quality of the patient's care is not compromised This note was prepared using voice recognition software and direct typing Please excuse inadvertent plaster mold maker or typing errors, or uncorrected word substitutions Although every attempt has been made by the provider to proofread this document, occasional misspellings and typographical errors may still be present Due to the previous pandemic, and the use of personal protective equipment (PPE) This may decrease voice recognition accuracy Inadvertent plaster mold maker errors may occuras 06/14/2024 Achilles tendinitis, left leg (ICD-10 - M76.62) Hx of HTN - 118/90 today in office. Continue medication adherence with losartan/HCTZ, amlodipine, and clonidine. Hx of HLD - patient is adherent to statin therapy. Continue medication and healthy eating. Hx of achilles tendonitis - currently using celebrex, doing well. Continue tates stretching and doing light exercise. Hx polycythemia vera - follows-up with core assembly supervisor for phlebotomy. Last treatment was April, [...] daily - prescribed by Dr. Pendleton at [facility]. Patient is most likely feeling more anxious [...] exercise. Hx polycythemia vera - follows-up with core assembly supervisor for phlebotomy. Last treatment was April, [...] daily - prescribed by Dr. Pendleton at [facility]. Patient is most likely feeling more anxious and emotional d/t enclomiphene citrate. Plan at this time is to continue current regimen and follow-up with functional medicine, given emotional state, would recommend discontinuing medication. Continue exercise regimen as well as healthy eating. Flu shot given today. Patient is set to follow up 3 months. 06/14/2024 Polycythemia vera (ICD-10 - D45) Hx of HTN - 118/90 today in office. Continue medication adherence with losartan/HCTZ, amlodipine, and clonidine. Hx of HLD - patient is adherent to statin therapy. Continue medication and healthy eating. Hx of achilles tendonitis - currently using celebrex, doing well. Continue tates stretching and doing light exercise. Hx polycythemia vera - follows-up with core assembly supervisor for phlebotomy. Last treatment was April, [...] daily - prescribed by Dr. Pendleton at [facility]. Patient is most likely feeling more anxious [...] is downtrending He gets therapeutic draws at [facility] Will get updated comprehensive labs including [...] software and direct typing Please excuse inadvertent plaster mold maker or typing errors, or uncorrected word substitutions Although every attempt has been made by the provider to proofread this document, occasional misspellings and typographical errors may still be present Due to the previous pandemic, and the use of personal protective equipment (PPE) This may decrease voice recognition accuracy Inadvertent plaster mold maker errors may occur 01/25/2025 Polycythemia vera (ICD-10 - D45) Acute Concerns/Problem List: 01/25/2025 Erythrocytosis, Followed by hematology He gets therapeutic draws at [facility] echo upcoming Otherwise unremarkable Coronary calcium CT score of 0 Encourage taking BP at home in relaxed state, record home readings: Reading were good. Losartan max dosing along with amlodipine as well as clonidine Will follow-up in 3 to 4 months regarding blood pressure monitoring Start Trazadone for Anxiety/ Sleep Refilled eszopiclone Of note, some information is being carried forward from prior records for informational purposes only and is being cited so that efficiency, safety and quality of the patient's care is not compromised This note was prepared using voice recognition software and direct typing Please excuse inadvertent plaster mold maker or typing errors, or uncorrected word substitutions Although every attempt has been made by the provider to proofread this document, occasional misspellings and typographical errors may still be present Due to the previous pandemic, and the use of personal protective equipment (PPE) This may decrease voice recognition accuracy Inadvertent plaster mold maker errors may occuras 04/27/2025 Polycythemia vera (ICD-10 - D45) Acute Concerns/Problem List: 01/25/2025 Continue Flonase Singulair and immunotherapy shots Continue Lunesta at bedtime, as needed lorazepam Erythrocytosis, Followed by hematology He gets therapeutic draws at [facility] echo upcoming Otherwise unremarkable Coronary calcium CT score of 0 BP stable Losartan max dosing along with amlodipine as well as clonidine Of note, some information is being carried forward from prior records for informational purposes only and is being cited so that efficiency, safety and quality of the patient's care is not compromised This note was prepared using voice recognition software and direct typing Please excuse inadvertent plaster mold maker or typing errors, or uncorrected word substitutions Although every attempt has been made by the provider to proofread this document, occasional misspellings and typographical errors may still be present Due to the previous pandemic, and the use of personal protective equipment (PPE) This may decrease voice recognition accuracy Inadvertent plaster mold maker errors may occuras 12/08/2024 Polycythemia vera (ICD-10 - D45) Acute Concerns/Problem List: 12/08/2024 Hypogonadism labs, update other comprehensive labs including CBC with differential He gets therapeutic draws at [facility] echo upcoming 12/[address] score of 0 Encourage taking BP at home in relaxed state, record home readings Losartan max dosing along with amlodipine as well as clonidine Will follow-up in 2 to 4 weeks regarding blood pressure monitoring Of note, some information is being carried forward from prior records for informational purposes only and is being cited so that efficiency, safety and quality of the patient's care is not compromised This note was prepared using voice recognition software and direct typing Please excuse inadvertent plaster mold maker or typing errors, or uncorrected word substitutions Although every attempt has been made by the provider to proofread this document, occasional misspellings and typographical errors may still be present Due to the previous pandemic, and the use of personal protective equipment (PPE) This may decrease voice recognition accuracy Inadvertent plaster mold maker errors may occur 12/08/2024 Obstructive sleep apnea (ICD-10 - G47.33) Acute Concerns/Problem List: 12/08/2024 Hypogonadism labs, update other comprehensive labs including CBC with differential He gets therapeutic draws at [facility] echo upcoming 12/[address] score of 0 Encourage taking BP at home in relaxed state, record home readings Losartan max dosing along with amlodipine as well as clonidine Will follow-up in 2 to 4 weeks regarding blood pressure monitoring Of note, some information is being carried forward from prior records for informational purposes only and is being cited so that efficiency, safety and quality of the patient's care is not compromised This note was prepared using voice recognition software and direct typing Please excuse inadvertent plaster mold maker or typing errors, or uncorrected word substitutions Although every attempt has been made by the provider to proofread this document, occasional misspellings and typographical errors may still be present Due to the previous pandemic, and the use of personal protective equipment (PPE) This may decrease voice recognition accuracy Inadvertent plaster mold maker errors may occur 04/27/2025 Obstructive sleep apnea (ICD-10 - G47.33) Acute Concerns/Problem List: 01/25/2025 Continue Flonase Singulair and immunotherapy shots Continue Lunesta at bedtime, as needed lorazepam Erythrocytosis, Followed by hematology He gets therapeutic draws at [facility] echo upcoming Otherwise unremarkable Coronary calcium CT score of 0 BP stable Losartan max dosing along with amlodipine as well as clonidine Of note, some information is being carried forward from prior records for informational purposes only and is being cited so that efficiency, safety and quality of the patient's care is not compromised This note was prepared using voice recognition software and direct typing Please excuse inadvertent plaster mold maker or typing errors, or uncorrected word substitutions Although every attempt has been made by the provider to proofread this document, occasional misspellings and typographical errors may still be present Due to the previous pandemic, and the use of personal protective equipment (PPE) This may decrease voice recognition accuracy Inadvertent plaster mold maker errors may occuras 01/25/2025 Obstructive sleep apnea (ICD-10 - G47.33) Acute Concerns/Problem List: 01/25/2025 Erythrocytosis, Followed by hematology He gets therapeutic draws at [facility] echo upcoming Otherwise unremarkable Coronary calcium CT score of 0 Encourage taking BP at home in relaxed state, record home readings: Reading were good. Losartan max dosing along with amlodipine as well as clonidine Will follow-up in 3 to 4 months regarding blood pressure monitoring Start Trazadone for Anxiety/ Sleep Refilled eszopiclone Of note, some information is being carried forward from prior records for informational purposes only and is being cited so that efficiency, safety and quality of the patient's care is not compromised This note was prepared using voice recognition software and direct typing Please excuse inadvertent plaster mold maker or typing errors, or uncorrected word substitutions Although every attempt has been made by the provider to proofread this document, occasional misspellings and typographical errors may still be present Due to the previous pandemic, and the use of personal protective equipment (PPE) This may decrease voice recognition accuracy Inadvertent plaster mold maker errors may occuras 09/21/2024 Right bundle branch block (RBBB) (ICD-10 - I45.10) Most recent hemoglobin is downtrending He gets therapeutic draws at [facility] Will get updated comprehensive labs including [...] software and direct typing Please excuse inadvertent plaster mold maker or typing errors, or uncorrected word substitutions Although every attempt has been made by the provider to proofread this document, occasional misspellings and typographical errors may still be present Due to the previous pandemic, and the use of personal protective equipment (PPE) This may decrease voice recognition accuracy Inadvertent plaster mold maker errors may occur 06/14/2024 Hypogonadism male (ICD-10 - E29.1) Hx of HTN - 118/90 today in office. Continue medication adherence with losartan/HCTZ, amlodipine, and clonidine. Hx of HLD - patient is adherent to statin therapy. Continue medication and healthy eating. Hx of achilles tendonitis - currently using celebrex, doing well. Continue tates stretching and doing light exercise. Hx polycythemia vera - follows-up with core assembly supervisor for phlebotomy. Last treatment was April, [...] daily - prescribed by Dr. Pendleton at [facility]. Patient is most likely feeling more anxious and emotional d/t enclomiphene citrate. Plan at this time is to continue current regimen and follow-up with functional medicine, given emotional state, would recommend discontinuing medication. Continue exercise regimen as well as healthy eating. Flu shot given today. Patient is set to follow up 3 months. 06/14/2024 Sleep concern (ICD-10 - Z76.89) Hx of HTN - 118/90 today in office. Continue medication adherence with losartan/HCTZ, amlodipine, and clonidine. Hx of HLD - patient is adherent to statin therapy. Continue medication and healthy eating. Hx of achilles tendonitis - currently using celebrex, doing well. Continue tates stretching and doing light exercise. Hx polycythemia vera - follows-up with core assembly supervisor for phlebotomy. Last treatment was April, [...] daily - prescribed by Dr. Pendleton at [facility]. Patient is most likely feeling more anxious and emotional d/t enclomiphene citrate. Plan at this time is to continue current regimen and follow-up with functional medicine, given emotional state, would recommend discontinuing medication. Continue exercise regimen as well as healthy eating. Flu shot given today. Patient is set to follow up 3 months. 01/25/2025 LBBB (left bundle branch block) (ICD-10 - I44.7) Acute Concerns/Problem List: 01/25/2025 Erythrocytosis, Followed by hematology He gets therapeutic draws at [facility] echo upcoming Otherwise unremarkable Coronary calcium CT score of 0 Encourage taking BP at home in relaxed state, record home readings: Reading were good. Losartan max dosing along with amlodipine as well as clonidine Will follow-up in 3 to 4 months regarding blood pressure monitoring Start Trazadone for Anxiety/ Sleep Refilled eszopiclone Of note, some information is being carried forward from prior records for informational purposes only and is being cited so that efficiency, safety and quality of the patient's care is not compromised This note was prepared using voice recognition software and direct typing Please excuse inadvertent plaster mold maker or typing errors, or uncorrected word substitutions Although every attempt has been made by the provider to proofread this document, occasional misspellings and typographical errors may still be present Due to the previous pandemic, and the use of personal protective equipment (PPE) This may decrease voice recognition accuracy Inadvertent plaster mold maker errors may occuras 04/27/2025 LBBB (left bundle branch block) (ICD-10 - I44.7) Acute Concerns/Problem List: 01/25/2025 Continue Flonase Singulair and immunotherapy shots Continue Lunesta at bedtime, as needed lorazepam Erythrocytosis, Followed by hematology He gets therapeutic draws at [facility] echo upcoming Otherwise unremarkable Coronary calcium CT score of 0 BP stable Losartan max dosing along with amlodipine as well as clonidine Of note, some information is being carried forward from prior records for informational purposes only and is being cited so that efficiency, safety and quality of the patient's care is not compromised This note was prepared using voice recognition software and direct typing Please excuse inadvertent plaster mold maker or typing errors, or uncorrected word substitutions Although every attempt has been made by the provider to proofread this document, occasional misspellings and typographical errors may still be present Due to the previous pandemic, and the use of personal protective equipment (PPE) This may decrease voice recognition accuracy Inadvertent plaster mold maker errors may occuras 12/08/2024 Right bundle branch block (RBBB) (ICD-10 - I45.10) Acute Concerns/Problem List: 12/08/2024 Hypogonadism labs, update other comprehensive labs including CBC with differential He gets therapeutic draws at [facility] echo upcoming 12/[address] score of 0 Encourage taking BP at home in relaxed state, record home readings Losartan max dosing along with amlodipine as well as clonidine Will follow-up in 2 to 4 weeks regarding blood pressure monitoring Of note, some information is being carried forward from prior records for informational purposes only and is being cited so that efficiency, safety and quality of the patient's care is not compromised This note was prepared using voice recognition software and direct typing Please excuse inadvertent plaster mold maker or typing errors, or uncorrected word substitutions Although every attempt has been made by the provider to proofread this document, occasional misspellings and typographical errors may still be present Due to the previous pandemic, and the use of personal protective equipment (PPE) This may decrease voice recognition accuracy Inadvertent plaster mold maker errors may occur 04/27/2025 Encounter for examination of blood pressure without abnormal findings (ICD-10 - Z01.30) Acute Concerns/Problem List: 01/25/2025 Continue Flonase Singulair and immunotherapy shots Continue Lunesta at bedtime, as needed lorazepam Erythrocytosis, Followed by hematology He gets therapeutic draws at [facility] echo upcoming Otherwise unremarkable Coronary calcium CT score of 0 BP stable Losartan max dosing along with amlodipine as well as clonidine Of note, some information is being carried forward from prior records for informational purposes only and is being cited so that efficiency, safety and quality of the patient's care is not compromised This note was prepared using voice recognition software and direct typing Please excuse inadvertent plaster mold maker or typing errors, or uncorrected word substitutions Although every attempt has been made by the provider to proofread this document, occasional misspellings and typographical errors may still be present Due to the previous pandemic, and the use of personal protective equipment (PPE) This may decrease voice recognition accuracy Inadvertent plaster mold maker errors may occuras 01/25/2025 Asymptomatic microscopic hematuria (ICD-10 - R31.21) Acute Concerns/Problem List: 01/25/2025 Erythrocytosis, Followed by hematology He gets therapeutic draws at [facility] echo upcoming Otherwise unremarkable Coronary calcium CT score of 0 Encourage taking BP at home in relaxed state, record home readings: Reading were good. Losartan max dosing along with amlodipine as well as clonidine Will follow-up in 3 to 4 months regarding blood pressure monitoring Start Trazadone for Anxiety/ Sleep Refilled eszopiclone Of note, some information is being carried forward from prior records for informational purposes only and is being cited so that efficiency, safety and quality of the patient's care is not compromised This note was prepared using voice recognition software and direct typing Please excuse inadvertent plaster mold maker or typing errors, or uncorrected word substitutions Although every attempt has been made by the provider to proofread this document, occasional misspellings and typographical errors may still be present Due to the previous pandemic, and the use of personal protective equipment (PPE) This may decrease voice recognition accuracy Inadvertent plaster mold maker errors may occuras Plan Of Treatment Pending Test Test Name Order Date Lipid Panel 04/26/2020 Comp. Metabolic Panel (14) 04/26/2020 PSA Total+ Free 04/26/2020 CBC 04/26/2020 Urinalysis 04/26/2020 EKG 04/01/2018 EKG 11/07/2020 CBC (COMPLETE BLOOD COUNT) 09/02/2018 COMPREHENSIVE METABOLIC PANEL 09/02/2018 LIPID PANEL 09/02/2018 PSA, SCREEN 09/02/2018 PSA, SCREEN 10/20/2019 PSA, SCREEN 09/21/2024 TESTOSTERONE, FREE AND TOTAL (MALES >15 YRS OLD) 03/24/2023 URINALYSIS, COMPLETE 09/02/2018 Comprehensive Metabolic Panel 04/01/2018 Lipid Panel 04/01/2018 Cologuard 08/26/2022 Cologuard 04/21/2019 LIPID PANEL, STANDARD 03/24/2023 LIPID PANEL, STANDARD 09/21/2024 LIPID PANEL, STANDARD 08/17/2023 LIPID PANEL, STANDARD 02/04/2022 LIPID PANEL, STANDARD 08/26/2022 LIPID PANEL, STANDARD 06/20/2021 COMPREHENSIVE METABOLIC PANEL 08/26/2022 COMPREHENSIVE METABOLIC PANEL 06/20/2021 COMPREHENSIVE METABOLIC PANEL 03/24/2023 COMPREHENSIVE METABOLIC PANEL 08/17/2023 COMPREHENSIVE METABOLIC PANEL 02/04/2022 COMPREHENSIVE METABOLIC PANEL 09/21/2024 CBC (INCLUDES DIFF/PLT) 09/21/2024 CBC (INCLUDES DIFF/PLT) 02/04/2022 CBC (INCLUDES DIFF/PLT) 03/24/2023 CBC (INCLUDES DIFF/PLT) 05/26/2023 CBC (INCLUDES DIFF/PLT) 10/19/2023 CBC (INCLUDES DIFF/PLT) 06/20/2021 CBC (INCLUDES DIFF/PLT) 08/26/2022 URINALYSIS, COMPLETE 06/20/2021 URINALYSIS, COMPLETE 03/24/2023 URINALYSIS, COMPLETE 09/21/2024 URINALYSIS, COMPLETE 02/04/2022 URINALYSIS, COMPLETE W/REFLEX TO CULTURE 01/25/2025 HEMOGLOBIN A1c 09/21/2024 FSH 12/08/2024 LH 12/08/2024 PSA (FREE AND TOTAL) 02/04/2022 PSA, TOTAL 03/24/2023 TSH 09/21/2024 VITAMIN D,25-OH,TOTAL,IA 09/21/2024 VITAMIN D,25-OH,TOTAL,IA 08/26/2022 TESTOSTERONE, TOTAL, MS 05/26/2023 TESTOSTERONE, FREE (DIALYSIS) AND TOTAL, MS 10/19/2023 TESTOSTERONE, FREE (DIALYSIS) AND TOTAL, MS 12/08/2024 US Renal 02/04/2022 SEX HORMONE BINDING GLOBULIN 12/08/2024 Next Appt Details Provider Name:ESTELITA KULKARNIELIAZAR, 08/15/2025 03:30:00 PM, [address] [facility], [facility], [place], [address], Insurance Providers Payer Name Payer Address Payer Phone Subscriber Number Group Number Insured Name Patient Relationship to Insured Coverage Start Date Coverage End Date [facility] [address] [place] [address] [phone] [id number] DANIELLE LOUIS Self - patient is the insured Medications Administered Medication Instructions Date of Administration Dosage Notes MICC B12 INJECTION 08/26/2022 [id number] Medical (General) History Medical History History ICD Code anxiety asthma erectile dysfunction esophageal reflux herpes simplex hyperlipidemia hypertension right bundle branch block (RBBB) Surgical History Surgery Date(Month/Year) back surgery Both ACL repaired nasal septal deviation repair March 2023 right achilles tendon repair right knee replaced Jun 2022 left knee replaced June 2023 Hospitalization History Reason Date(Month/Year) for surgery
--- OUTSIDE RECORDS SUMMARY | 2025-05-08 17:44 | XMS_ITS | Encounter Summary ---
Author Organization [facility] Address [address] [facility] [address] [place] [phone] Phone Care Team Providers Care Healthcare Technician Name Role Phone Pcp, Not Required Primary Care Provider Debbiea nia Encounter Details Date Type Department Care Team (Late st Contact Info) Description 04/01/2023 Procedure Pass RAMÓN MAIN PERIOP DEPT [address] [id number] Social History Tobacco Use Types Packs/Day Years [...] on file documented as of this encounter Visit Diagnoses Not on filedocumented in this encounter Care Teams Healthcare Technician Relationship Specialty Start Date End Date Pcp, Not Required [address] [place] [address] PCP - General 11/17/22 documented as of this encounter Additional Source Comments The information contained in this document represents components of the legal health record. It is not the complete legal health record.[facility]
--- OUTSIDE RECORDS SUMMARY | 2025-05-08 17:44 | XMS_ITS | Clinical Summary ---
Author Organization [facility] Address [address] [place] [address] Care Team Providers Care Merchandise Support Associate Name Role Phone Juancarlos Phoenix MD Primary Care Provider + [phone] Allergies Active Allergy Reactions Criticality Noted Date [...] 81 01/04/2024 3:28 PM EDT Temperature 36.8 C (98.2 F) 01/04/2024 3:28 PM EDT Respiratory Rate - - Oxygen [...] Hepatitis C Screening 1962 COVID-19 Vaccine (#1) 06/04/1963 Depression Screening 1974 Preventative Health Evaluation 1980 DTap / Tdap / Td (1 - Tdap) 1981 Colon Cancer Screening (Colonoscopy) 12/03/2007 Shingrix-Zoster Vaccine (1 of 2) 2012 Influenza Vaccine (#1) 2025 RSV Adult > 60+ Yrs or Pregn ant (1 - 1-dose 75+ series) 2037 Hepatitis B Vaccines Aged Out No long er eligible based on patient's age to complete this topic Pneumococcal Vaccine Aged Out No long er eligible based on patient's age to complete this topic RSV Ped < 20 months Aged Out No longe r eligible based on patient's age to complete this topic Care Teams Merchandise Support Associate Relationship Specialty Start Date End Date Juancarlos Phoenix MD [address] [place] [address] PCP - General Internal Medicine 04/05/18
--- OUTSIDE RECORDS SUMMARY | 2025-05-08 17:44 | XMS_ITS | Clinical Summary ---
Author Organization [facility] Address [address] [place] [address] Phone Care Team Providers Care Sales Representative Education Courses Name Role Phone Juancarlos Phoenix MD Primary Care Provider [phone] Allergies Active Allergy Reactions Criticality Noted Date [...] Active losartan (COZAAR) 50 mg tablet Take 2 tablets (100 mg total) by mouth 1 (one) time [...] mouth 2 (two) times a day. Active cloNIDine (CATAPRES) 0.1 mg tablet Take 1 tablet (0.1 mg total) by mouth 2 (two) times [...] Sign Reading Time Taken Comments Blood Pressure 159/85 02/01/2025 3:02 PM EDT Pulse 74 02/01/2025 3:02 PM EDT Temperature 36.1 C (96.9 F) 02/01/2025 3:02 PM EDT Respiratory Rate - - Oxygen Saturation 99% 02/01/2025 3:02 PM EDT Inhaled Oxygen Concentration - - Weight 128 kg (283 lb) 02/01/2025 3:02 PM EDT Height 200.7 cm (6' 7 ) 01/04/2025 3:28 PM EDT Body Mass Index 31.88 01/04/2025 3:28 PM EDT Plan of Treatment Upcoming Encounters Date Type Department Care Team (Late st Contact Info) Description 08/22/2025 3:45 PM EST Office Visit [facility] Hematology Oncology [address] [place] [phone] Geremias Moe MD [address] [place] [address] Health Maintenance Due Date Last Done Comments DTaP,Tdap,and Td Vaccines (1 - Tdap) 1981 Pneumococcal Vaccine: 50+ Years (1 of 2 - PCV) 1981 RSV Immunization Adult Patients (1 - Risk 60-74 years 1-dose series) 2022 HIV Screening 10/18/2023 Hepatitis C Screening 10/18/2023 Social Influencers of Health Screening 10/18/2023 COVID-19 Vaccine ( - season) 2024 07/27/2021, 10/21/2020, 09/23/2020 Depression Screening 09/14/2024 Influenza Vaccine (#1) 2025 , 08/26/2022, 06/22/2021, Additional history exists Colorectal Cancer Screening: FIT-DNA (Cologuard) 09/24/2025 09/24/2022, 09/24/2022, 06/21/2019 Hypertension/CHF/CAD Annual BMP Blood Test 01/13/2026 01/13/2025 Cholesterol Screening (Lipid Panel) 01/13/2030 01/13/2025 Zoster Vaccines Completed 09/29/2021, 07/07/2021 HIB Vaccines Aged Out No longer eligi [...] age to complete this topic Meningococcal B Vaccine Aged Out No l onger eligible based on patient's age to complete this topic RSV Immunization Patients Under 20 months Aged Out No longer eligible based on patient's age to complete this topic Varicella Vaccines Aged Out No longer eligible based on patient's age to complete this topic Procedures Procedure Name Priority Date/Time Associated Diagnosis Comments COMPREHENSIVE METABOLIC PANEL Routine 01/13/2025 8:41 AM EDT 3-oxo-5 alpha-steroid delta 4-dehydrogenase deficiency LIPID PANEL WITH REFLEX TO DIRECT LDL Routine 01/13/2025 8:41 AM EDT 3-oxo-5 alpha-steroid delta 4-dehydrogenase deficiency from Last 3 Months or Most Recently Relevant to Health Maintenance Results * (ABNORMAL) Lipid panel with reflex to direct LDL (01/13/2025 8:41 AM EDT) Pathologist [facility] Cholesterol 157 0 - 200 mg/dL LAB CHEMISTRY METHOD 01/13/2025 12:35 PM EDT [facility] Triglycerides 154(H) 0 - 150 mg/dL LAB CHEMISTRY METHOD 01/13/2025 12:35 PM EDT [facility] HDL 38(L) >=40 mg/dL LAB CHEMISTRY METHOD 01/13/2025 12:35 PM EDT [facility] LDL Calculated 88 0 - 100 mg/dL LAB CHEMISTRY METHOD 01/13/2025 12:35 PM EDT [facility] VLDL Cholesterol Basil 30.8 mg/dL LAB CHEMISTRY METHOD 01/13/2025 12:35 PM EDT [facility] Non HDL Chol. (LDL+VLDL) 119 <145 mg/dL LAB CHEMISTRY METHOD 01/13/2025 12:35 PM EDT [facility] Chol/HDL Ratio 4.1 0.0 - 4.4 LAB CHEMISTRY METHOD 01/13/2025 12:35 PM [facility] Blood Venous blood specimen / Unknown Venipuncture / Unknown 01/13/2025 8:41 AM EDT 01/13/2025 12:12 PM EDT us Livia Burns RANCH HAND LIVESTOCK LAB BLOOD ORDERABLES Final Re sult [facility] [address] [place] [address], [place] [phone] * (ABNORMAL) Comprehensive metabolic panel (01/13/2025 8:41 AM EDT) Sodium 141 133 - 145 mmol/L LAB CHEMISTRY METHOD 01/13/2025 12:35 PM EDT [facility] Potassium 4.1 3.5 - 5.5 mmol/L LAB CHEMISTRY METHOD 01/13/2025 12:35 PM T [facility] Chloride 107 96 - 110 mmol/L LAB CHEMISTRY METHOD 01/13/2025 12:35 PM [facility] CO2 27 21 - 32 mmol/L LAB CHEMISTRY METHOD 01/13/2025 12:35 PM EDT [facility] Anion Gap 7 3 - 11 LAB CHEMISTRY METHOD 01/13/2025 12:35 PM [facility] Glucose 116(H) 70 - 100 mg/dL LAB CHEMISTRY METHOD 01/13/2025 12:35 PM [facility] BUN 17 5 - 25 mg/dL LAB CHEMISTRY METHOD 01/13/2025 12:35 PM [facility] Creatinine 0.99 0.70 - 1.30 mg/dL LAB CHEMISTRY METHOD 01/13/2025 12:35 PM [facility] eGFR 86 >=60 mL/min/1. 73m2 LAB CHEMISTRY METHOD 01/13/2025 12:35 PM [facility] Comment:Calculation based on the Chronic Kidney Disease Epidemiology Collaboration (CKD-EPI) equation refit without adjustment for race. BUN/Creatinine Ratio 17.2 LAB CHEMISTRY METHOD 01/13/2025 12:35 PM [facility] Calcium 9.8 8.5 - 10.5 mg/dL LAB CHEMISTRY METHOD 01/13/2025 12:35 PM [facility] AST (SGOT) 27 10 - 42 unit/L LAB CHEMISTRY METHOD 01/13/2025 12:35 PM [facility] ALT (SGPT) 49 10 - 60 unit/L LAB CHEMISTRY METHOD 01/13/2025 12:35 PM [facility] Alkaline Phosphatase 83 42 - 121 unit/L LAB CHEMISTRY METHOD 01/13/2025 12:35 PM [facility] Total Protein 7.4 6.0 - 8.0 g/dL LAB CHEMISTRY METHOD 01/13/2025 12:35 PM [facility] Albumin 4.0 3.2 - 5.0 g/dL LAB CHEMISTRY METHOD 01/13/2025 12:35 PM [facility] Total Bilirubin 0.7 0.0 - 1.4 mg/dL LAB CHEMISTRY METHOD 01/13/2025 12:35 PM [facility] ([facility]) [facility] Blood Venous blood specimen / Unknown Venipuncture / Unknown 01/13/2025 8:41 AM EDT 01/13/2025 12:12 PM EDT us Livia Burns [employer] LAB BLOOD ORDERABLES Final Re sult [facility] ([facility]) [facility] [address] [place] [address], from Last 3 Months or Most Recently Relevant to Health Maintenance Insurance [facility]) Care Teams Sales Representative Education Courses Relationship Specialty Start Date End Date Juancarlos Phoenix MD [address] [place] [address] PCP - General Internal Medicine 04/05/18
--- OUTSIDE RECORDS SUMMARY | 2025-05-08 17:44 | XMS_ITS ---
Author Name [facility] Organization Unknown Encounters Encounter Type Encounter Reason Primary Diagnosis Location Date Ambulatory [facility] ical Group 07/12/2024 Care Team Organization Name Specialty Phone Email Start Date End Da te [facility] 2024 Office of the [employer] [facility] ([facility]) [facility] 07/14/2023
== END 2025-05-09 13:33 | disposition home or self-care (01) ==
LOC: HO.HMGAL 15:43
PROVIDERS: PCP Internal Medicine; Visit Provider Registered Nurse Emergency
DX: J30.89 Other allergic rhinitis (principal)
CPT/HCPCS: 95117; 95165

== ENCOUNTER 2025-05-22 15:42 | Outpatient (AMB) | payer BC, SELFPAY ==
--- OUTSIDE RECORDS SUMMARY | 2022-07-08 | XMS_ITS | Encounter Summary ---
Author Organization [facility] Address [address] [facility] [address] [place] [address] Phone Care Team Providers Care Cytotechnologist Name Role Phone Unavailable Primary Care Provider Unavailabl e Encounter Details Date Type Department Care Team (Late st Contact Info) Description 07/08/2022 Hospital Encounter [facility] [address] [place] [address] Howard Quintana MD [address] [place] [phone] [email or web address] Social History Tobacco Use [...] It is not the complete legal health record.[facility]
--- OUTSIDE RECORDS SUMMARY | 2025-05-22 18:31 | XMS_ITS | Encounter Summary ---
Author Organization [facility] Address [address] [facility] [address] [place] [address] Phone Care Team Providers Care Deputy Assessor Name Role Phone Pcp, Not Required Primary Care Provider Debbiea nia Encounter Details Date Type Department Care Team (Late st Contact Info) Description 04/01/2023 Procedure Pass RAMÓN MAIN PERIOP DEPT [address] [place] [phone] Social History Tobacco Use Types Packs/Day Years [...] on filedocumented in this encounter Care Teams Deputy Assessor Relationship Specialty Start Date End Date Pcp, Not Required [address] [place] [phone] PCP - General 11/17/22 documented as of this encounter Additional Source Comments The information contained in this document represents components of the legal health record. It is not the complete legal health record.[facility]
--- OUTSIDE RECORDS SUMMARY | 2025-05-22 18:31 | XMS_ITS | Clinical Summary ---
Author Organization [facility] Address [address] [address] Phone Care Team Providers Care Manufacturing Production Technician Name Role Phone Pcp, Not Required [...] by mouth every evening. 3 Active omega 5-FHS-LTF-fish oil (FISH OIL) 60-90-500 mg capsule 1 [...] HEPATITIS C SCREENING 1980 HIV ONE-TIME SCREENING (18-65 YEARS) 1980 SCREENING FOR DIABETES 1997 COLOGUARD 12/03/2007 COLONOSCOPY 12/03/2007 COLORECTAL CANCER SCREENING 12/03/2007 FIT TEST 12/03/2007 FOBT 12/03/2007 SIGMOIDOSCOPY 12/03/2007 VIRTUAL COLONOSCOPY 12/03/2007 PNEUMOCOCCAL VACCINES (50+ years) (1 of 1 - PCV) 2012 INFLUENZA VACCINE (#1) 2025 , 05/30/2020, 08/01/2018, Additional history exists COVID-19 VACCINE ( - 2024- season) 2025 07/27/2021, 10/21/2020, 09/23/2020 RSV VACCINE (1 - 1-dose 75+ series) 2037 ZOSTER VACCINES Completed 09/29/2021, 07/07/2021 SMOKING STATUS SCREENING (Once After 26 Yrs) Completed 04/01/2023 HEPATITIS A [...] this topic Medical Devices Implanted Type Area Senior Media Buyer Device Identifier Shelf Expiration Date Model / Serial / Lot Prosthetic Joint Prosthetic Joint Knee Dental Insurance BLUE CROSS OUT OF STATE PPO BLUE CROSS OUT OF STATE PPO BLUE CROSS OUT OF STATE PPO BLUE CROSS OUT OF STATE PPO BLUE CROSS OUT OF STATE PPO BLUE [employer]OSS OUT OF STATE PPO Care Teams Manufacturing Production Technician Relationship Specialty Start Date End Date Pcp, Not Required [address] [place] [address] PCP - General 11/17/22 Additional Source Comments The information contained in this document represents components of the legal health record. It is not the complete legal health record.[facility]
--- OUTSIDE RECORDS SUMMARY | 2025-05-22 18:31 | XMS_ITS | Clinical Summary ---
Author Organization [facility] Address [address] [place] [address] Phone Care Team Providers Care Ivory Polisher Name Role Phone Juancarlos Phoenix MD Primary Care Provider [phone] Allergies Active Allergy Reactions Criticality Noted Date [...] Description 08/22/2025 3:45 PM EST Office Visit [facility] Hematology Oncology [address] [place] [phone] Geremias Moe MD [address] [place] [address] Health Maintenance Due Date Last Done Comments DTaP,Tdap,and Td Vaccines (1 - Tdap) 1981 Pneumococcal Vaccine: 50+ Years (1 of 2 - PCV) 1981 RSV Immunization Adult Patients (1 - Risk 60-74 years 1-dose series) 2022 HIV Screening 10/18/2023 Hepatitis C Screening 10/18/2023 Social Influencers of Health Screening 10/18/2023 Depression Screening 09/14/2024 COVID-19 Vaccine ( season) 2025 07/27/2021, 10/21/2020, 09/23/2020 Influenza Vaccine (#1) 2025 , 08/26/2022, 06/22/2021, [...] direct LDL (01/13/2025 8:41 AM EDT) Pathologist [facility] Cholesterol 157 0 - 200 mg/dL LAB CHEMISTRY METHOD 01/13/2025 12:35 PM EDT [facility] Triglycerides 154(H) 0 - 150 mg/dL LAB CHEMISTRY METHOD 01/13/2025 12:35 PM EDT [facility] HDL 38(L) >=40 mg/dL LAB CHEMISTRY METHOD 01/13/2025 12:35 PM EDT [facility] LDL Calculated 88 0 - 100 mg/dL LAB CHEMISTRY METHOD 01/13/2025 12:35 PM EDT [facility] VLDL Cholesterol Basil 30.8 mg/dL LAB CHEMISTRY METHOD 01/13/2025 12:35 PM EDT [facility] Non HDL Chol. (LDL+VLDL) 119 <145 mg/dL LAB CHEMISTRY METHOD 01/13/2025 12:35 PM EDT [facility] Chol/HDL Ratio 4.1 0.0 - 4.4 LAB CHEMISTRY METHOD 01/13/2025 12:35 PM [facility] Blood Venous blood specimen / Unknown Venipuncture / Unknown 01/13/2025 8:41 AM EDT 01/13/2025 12:12 PM EDT us Livia Burns REAL ESTATE PROFESSOR LAB BLOOD ORDERABLES Final Re sult [facility] [address] [place] [address], [place] [phone] * (ABNORMAL) Comprehensive metabolic panel (01/13/2025 8:41 AM EDT) Sodium 141 133 - 145 mmol/L LAB CHEMISTRY METHOD 01/13/2025 12:35 PM EDT [facility] Potassium 4.1 3.5 - 5.5 mmol/L LAB CHEMISTRY METHOD 01/13/2025 12:35 PM T [facility] Chloride 107 96 - 110 mmol/L LAB CHEMISTRY METHOD 01/13/2025 12:35 PM [facility] CO2 27 21 - 32 mmol/L LAB CHEMISTRY METHOD 01/13/2025 12:35 PM EDT [facility] Anion Gap 7 3 - 11 LAB CHEMISTRY METHOD 01/13/2025 12:35 PM [facility] Glucose 116(H) 70 - 100 mg/dL LAB CHEMISTRY METHOD 01/13/2025 12:35 PM [facility] BUN 17 5 - 25 mg/dL LAB CHEMISTRY METHOD 01/13/2025 12:35 PM [facility] Creatinine 0.99 0.70 - 1.30 mg/dL LAB CHEMISTRY METHOD 01/13/2025 12:35 PM [facility] eGFR 86 >=60 mL/min/1. 73m2 LAB CHEMISTRY METHOD 01/13/2025 12:35 PM [facility] Comment:Calculation based on the Chronic Kidney Disease Epidemiology Collaboration (CKD-EPI) equation refit without adjustment for race. BUN/Creatinine Ratio 17.2 LAB CHEMISTRY METHOD 01/13/2025 12:35 PM [facility] Calcium 9.8 8.5 - 10.5 mg/dL LAB CHEMISTRY METHOD 01/13/2025 12:35 PM [facility] AST (SGOT) 27 10 - 42 unit/L LAB CHEMISTRY METHOD 01/13/2025 12:35 PM [facility] ALT (SGPT) 49 10 - 60 unit/L LAB CHEMISTRY METHOD 01/13/2025 12:35 PM [facility] Alkaline Phosphatase 83 42 - 121 unit/L LAB CHEMISTRY METHOD 01/13/2025 12:35 PM [facility] Total Protein 7.4 6.0 - 8.0 g/dL LAB CHEMISTRY METHOD 01/13/2025 12:35 PM [facility] Albumin 4.0 3.2 - 5.0 g/dL LAB CHEMISTRY METHOD 01/13/2025 12:35 PM [facility] Total Bilirubin 0.7 0.0 - 1.4 mg/dL LAB CHEMISTRY METHOD 01/13/2025 12:35 PM [facility] [place] ([facility]) [facility] Blood Venous blood specimen / Unknown Venipuncture / Unknown 01/13/2025 8:41 AM EDT 01/13/2025 12:12 PM EDT us Livia Burns REAL ESTATE PROFESSOR LAB BLOOD ORDERABLES Final Re sult [facility] ([facility]) [facility] [address] [place] [address], from Last 3 Months or Most Recently Relevant to Health Maintenance Insurance [facility] ([facility]) Care Teams Ivory Polisher Relationship Specialty Start Date End Date Juancarlos Phoenix MD [address] [place] [address] PCP - General Internal Medicine 04/05/18
--- OUTSIDE RECORDS SUMMARY | 2025-05-22 18:31 | XMS_ITS | Clinical Summary ---
Author Organization [facility] Address [address] [place] [address] Care Team Providers Care Biological Engineer Name Role Phone Juancarlos Phoenix MD Primary Care Provider + [phone] Allergies Active Allergy Reactions Criticality Noted Date [...] age to complete this topic Care Teams Biological Engineer Relationship Specialty Start Date End Date Juancarlos Phoenix MD [address] [place] [address] PCP - General Internal Medicine 04/05/18
--- OUTSIDE RECORDS SUMMARY | 2025-05-22 18:32 | XMS_ITS | Patient Health Record ---
Author Organization [facility] [address] Address [address] [place] [address] Care Team Providers Care Piggyback Clerk Name Role Phone KAMALA ZIEGLER Primary Care Provider ESTELITA FRANCO Unavailable [phone] Allergies No Known Allergies Results Component Value Reference Range Notes ERYTHROPOIETIN Reviewed date:01/11/2025 08:31:07 AM Interpretation: Performing Lab: Notes/Report: Erythropoietin 14.9 2.6-18.5 mIU/mL Test performed at [facility], [address] [place] [address] Brenda Becerra MD, PhD - Sales Manager [employer] CALRETICULIN MUTATION ANALYS IS Reviewed date:01/09/2025 02:23:21 PM Interpretation: Performing Lab: Notes/Report: Performed at: - [facility] [address] [place], [place] [id number] [address] Administrator: Ashkan Quiñones [facility], Phone: [phone] Performed at: - [facility] [address] [place] [id number] [address] Administrator: Ashkan Quiñones [facility], Phone: [phone] Calreticulin (CALR) Mutation Detection Result NEGATIVE No [...] developed and its performance characteristics determined by [employer]. It has not been cleared or approved by the Food and Drug Administration. The FDA has determined that such clearance or approval is not necessary. References Note 1. Jos Plata et al. (2013) Somatic mutations of calreticulin in myeloproliferative neoplasms. [place]. J. Med. 369:0926-1028. 2. Analilia Minaya et al. (2013) Somatic CALR mutations in myeloproliferative neoplasms with nonmutated JAK2. [place]. J. Med. 369:7521-8389. Director Review: Technical Component performed at [facility] Professional Component performed by: Curly Schaeffer, PhD, [facility] Director, Molecular Oncology [id number], [address] [id number] RETICULOCYTE COUNT Reviewed date:01/09/2025 02:23:21 PM Interpretation: [...] % Mean Bld Glu Estim. 120 URINALYSIS MICROSCOPIC ONLY Reviewed date:01/17/2025 08:55:39 AM [...] 4.1 0.0-4.4 CBC WITH AUTO DIFFERENTIAL Reviewed date:01/17/2025 08:55:39 [...] K/mcL Immature Granulocytes Absolute 0.01 0.00-0.03 K/mcL CBC WITH AUTO DIFFERENTIAL Reviewed date:01/09/2025 02:29:41 [...] Immature Granulocytes Absolute 0.02 0.00-0.03 K/mcL Prostate-Specific Ag-[id number] Reviewed date:11/26/2024 08:46:36 AM Interpretation: Performing Lab:[facility], [address] [place] [address], [place], Phone - [phone], Director - Rebecca Notes/Report: Prostate Specific Ag 0.4 0.0-4.0 ng/mL [facility] ECLIA methodology. . According to the [employer] [employer], Serum PSA should decrease and [...] the presence or absence of malignant disease. URINALYSIS WITH REFLEX MICRO SCOPIC AND CULTURE Reviewed date:01/26/2025 08:24:51 AM Interpretation: Performing Lab: Notes/Report: Specific [place] Urine 1.031 1.003-1.030 pH, Urine 6.0 5.0-8.0 pH Leukocytes, Urine Negative Negative Nitrite, Urine Negative Negative Protein, Urine Trace <=Trace mg/dL Glucose, Urine Negative Negative mg/dL Ketones, Urine Trace Negative mg/dL Urobilinogen, Urine 1.0 0.2-1.0 mg/dL Bilirubin, Urine Negative Negative Blood, Urine Negative Negative Reason For Referral No Information Medications Medication [...] HCl 0.1 MG TAKE 1 TABLET BY [facility] TWICE A DAY FOR 90 DAYS; [...] W/U Status Risk Notes Problem Polycythemia vera (210117603) Polycythemia vera (D45) Active confirmed Problem Testicular hypofunction (847728452) Testicular hypofunction (E29.1) Active confirmed Problem Vitamin D deficiency (50089906) Vitamin D deficiency, unspecified (E55.9) Active confirmed Problem Hyperlipidemia (49305279) Hyperlipidemia, unspecified (E78.5) Active confirmed Problem Primary insomnia (3303069) Primary insomnia (F51.01) Active confirmed Problem Insomnia (227810523) Other insomnia (G47.09) Active confirmed Problem Essential hypertension (41601448) Essential (primary) hypertension (I10) Active confirmed Problem Allergic rhinitis (82205280) Allergic rhinitis, unspecified (J30.9) Active confirmed Problem Chronic rhinitis (23993873) Chronic rhinitis (J31.0) Active confirmed Problem Chronic sinusitis (01529096) Chronic sinusitis, unspecified (J32.9) Active confirmed Problem Adult health examination (597627015) Encounter for general adult medical examination without abnormal findings (Z00.00) Active confirmed Problem Screening for malignant neoplasm of prostate (274995441) Encounter for screening for malignant neoplasm of prostate (Z12.5) Active confirmed Problem Screening for malignant neoplasm of skin (780550119) Encounter for screening for malignant neoplasm of skin (Z12.83) Active confirmed Problem Lipid screening (415834332) Encounter for screening for lipoid disorders (Z13.220) Active confirmed Problem Adult health examination (943628009) Adult general medical exam (Z00.00) Active confirmed Problem Vitamin D deficiency (60662391) Vitamin D deficiency (E55.9) Active confirmed Problem Male hypogonadism (56565652) Hypogonadism male (E29.1) Active confirmed Problem Diabetes mellitus screening (840306023) Diabetes mellitus screening (Z13.1) Active confirmed Problem Obstructive sleep apnea (62051391) Obstructive sleep apnea (G47.33) Active confirmed Problem Endocrine/metaboli c screening (229422623) Encounter for screening for endocrine disorder (Z13.29) Active confirmed Problem Screening for malignant neoplasm of prostate (293424437) Encounter for prostate cancer screening (Z12.5) Active confirmed Problem Left bundle branch block (40935505) LBBB (left bundle branch block) (I44.7) Active confirmed Problem Right bundle branch block (02561667) Right bundle branch block (RBBB) (I45.10) Active confirmed Vital Signs Heart Rate 83 /min 04/27/2025 Blood pressure diastolic 80 mm Hg 04/27/2025 Oximetry 97 % 04/27/2025 Height 79 in 04/27/2025 Blood pressure systolic 130 mm Hg 04/27/2025 Weight 281 lbs 04/27/2025 BMI 31.65 kg/m2 04/27/2025 Encounters Encounter Location Date Provider Diagnosis [facility] [address] [facility] [address] [place] [address] 06/15/2024 KAMALA ZIEGLER [facility] [address] [facility] [address] [place] [address] 07/25/2024 TALAL ZIEGLER [facility] [address] [facility] [address] [place] [address] 10/07/2024 ESTELITA BORHOT [facility] [address] [place] [address] 10/24/2024 ESTELITA BORHOT [facility] [address] [facility] [address] [place] [address] 10/24/2024 ESTELITA BORHOT [facility] [address] [address] 12/19/2024 ESTELITA BORHOT [facility] [address] [address] 12/19/2024 ESTELITA BORHOT [facility] [address] [place] [address] 12/19/2024 TALCHAVA BISHOPAN [facility] [address] [facility] [address] [place] [address] 12/23/2024 ESTELITA BORHOT [facility] [address] [address] 04/20/2025 ESTELITA BORHOT [facility] [address] [address] 12/08/2024 ESTELITA BORHOT Essential (primary) hypertension I10 ; Annual physical exam Z00.00 ; Testicular hypofunction E29.1 ; Polycythemia vera D45 ; Obstructive sleep apnea G47.33 and Right bundle branch block (RBBB) I45.10 [facility] [address] [address] 01/25/2025 ESTELITA BORHOT Essential (primary) hypertension I10 ; Testicular hypofunction E29.1 ; Polycythemia vera D45 ; Obstructive sleep apnea G47.33 ; LBBB (left bundle branch block) I44.7 and Asymptomatic microscopic hematuria R31.21 [facility] [address] [facility] [address] [address] 04/27/2025 ESTELITA BORHOT Essential (primary) hypertension I10 ; Testicular hypofunction E29.1 ; Polycythemia vera D45 ; Obstructive sleep apnea G47.33 ; LBBB (left bundle branch block) I44.7 and Encounter for examination of blood pressure without abnormal findings Z01.30 [facility] [address] [address] 06/14/2024 KAMALA ZIEGLER Hyperlipidemia, unspecified E78.5 ; Essential (primary) hypertension I10 ; Encounter for immunization Z23 ; Achilles tendinitis, left leg M76.62 ; Polycythemia vera D45 ; Hypogonadism male E29.1 and Sleep concern Z76.89 [facility] [address] [address] 09/21/2024 ESTELITA FRANCO Essential (primary) hypertension I10 ; Testicular hypofunction E29.1 ; Polycythemia vera D45 ; Obstructive sleep apnea G47.33 and Right bundle branch block (RBBB) I45.10 Assessments Encounter Date Diagnosis (ICD Code) Assessment Notes Treatment Notes Treatment Clinical Notes Section Notes 04/27/2025 Essential (primary) hypertension (ICD-10 - I10) Acute Concerns/Problem List: 01/25/2025 Continue Flonase Singulair and immunotherapy shots Continue Lunesta at bedtime, as needed lorazepam Erythrocytosis, Followed by hematology He gets therapeutic draws at [facility] echo upcoming Otherwise unremarkable Coronary calcium [...] software and direct typing Please excuse inadvertent verification specialist or typing errors, or uncorrected word substitutions Although every attempt has been made by the provider to proofread this document, occasional misspellings and typographical errors may still be present Due to the previous pandemic, and the use of personal protective equipment (PPE) This may decrease voice recognition accuracy Inadvertent verification specialist errors may occuras 12/08/2024 Essential (primary) hypertension (ICD-10 - I10) Acute Concerns/Problem List: 12/08/2024 Hypogonadism labs, update other comprehensive labs including CBC with differential He gets therapeutic draws at [facility] echo upcoming 12/2024 [facility] Coronary calcium [...] software and direct typing Please excuse inadvertent verification specialist or typing errors, or uncorrected word substitutions Although every attempt has been made by the provider to proofread this document, occasional misspellings and typographical errors may still be present Due to the previous pandemic, and the use of personal protective equipment (PPE) This may decrease voice recognition accuracy Inadvertent verification specialist errors may occur 12/08/2024 Annual physical exam (ICD-10 - Z00.00) Acute Concerns/Problem List: 12/08/2024 Hypogonadism labs, update other comprehensive labs including CBC with differential He gets therapeutic draws at [facility] echo upcoming 12/2024 P[facility] Coronary calcium [...] software and direct typing Please excuse inadvertent verification specialist or typing errors, or uncorrected word substitutions Although every attempt has been made by the provider to proofread this document, occasional misspellings and typographical errors may still be present Due to the previous pandemic, and the use of personal protective equipment (PPE) This may decrease voice recognition accuracy Inadvertent verification specialist errors may occur 01/25/2025 Essential (primary) hypertension (ICD-10 - I10) Acute Concerns/Problem List: 01/25/2025 Erythrocytosis, Followed by hematology He gets therapeutic draws at [facility] echo upcoming Otherwise unremarkable Coronary calcium [...] software and direct typing Please excuse inadvertent verification specialist or typing errors, or uncorrected word substitutions Although every attempt has been made by the provider to proofread this document, occasional misspellings and typographical errors may still be present Due to the previous pandemic, and the use of personal protective equipment (PPE) This may decrease voice recognition accuracy Inadvertent verification specialist errors may occuras 09/21/2024 Testicular hypofunction (ICD-10 - E29.1) Most recent hemoglobin is downtrending He gets therapeutic draws at [facility] Will get updated comprehensive labs including [...] software and direct typing Please excuse inadvertent verification specialist or typing errors, or uncorrected word substitutions Although every attempt has been made by the provider to proofread this document, occasional misspellings and typographical errors may still be present Due to the previous pandemic, and the use of personal protective equipment (PPE) This may decrease voice recognition accuracy Inadvertent verification specialist errors may occur 09/21/2024 Essential (primary) hypertension (ICD-10 - I10) Most recent hemoglobin is downtrending He gets therapeutic draws at [facility] Will get updated comprehensive labs including [...] software and direct typing Please excuse inadvertent verification specialist or typing errors, or uncorrected word substitutions Although every attempt has been made by the provider to proofread this document, occasional misspellings and typographical errors may still be present Due to the previous pandemic, and the use of personal protective equipment (PPE) This may decrease voice recognition accuracy Inadvertent verification specialist errors may occur 06/14/2024 Hyperlipidemia, unspecified (ICD-10 - E78.5) Hx of HTN - 118/90 today in office. Continue medication adherence with losartan/HCTZ, amlodipine, and clonidine. Hx of HLD - patient is adherent to statin therapy. Continue medication and healthy eating. Hx of achilles tendonitis - currently using celebrex, doing well. Continue tates stretching and doing light exercise. Hx polycythemia vera - follows-up with program trainer for phlebotomy. Last treatment was April, next [...] daily - prescribed by Dr. Pendleton at [place] [facility]. Patient is most likely feeling [...] exercise. Hx polycythemia vera - follows-up with program trainer for phlebotomy. Last treatment was April, next [...] daily - prescribed by Dr. Pendleton at [facility]. Patient is most likely feeling more anxious and emotional d/t enclomiphene citrate. Plan at this time is to continue current regimen and follow-up with functional medicine, given emotional state, would recommend discontinuing medication. Continue exercise regimen as well as healthy eating. Flu shot given today. Patient is set to follow up 3 months. 06/14/2024 Achilles tendinitis, left leg (ICD-10 - M76.62) Hx of HTN - 118/90 today in office. Continue medication adherence with losartan/HCTZ, amlodipine, and clonidine. Hx of HLD - patient is adherent to statin therapy. Continue medication and healthy eating. Hx of achilles tendonitis - currently using celebrex, doing well. Continue tates stretching and doing light exercise. Hx polycythemia vera - follows-up with program trainer for phlebotomy. Last treatment was April, next [...] daily - prescribed by Dr. Pendleton at [facility]. Patient is most likely feeling more [...] exercise. Hx polycythemia vera - follows-up with program trainer for phlebotomy. Last treatment was April, next [...] daily - prescribed by Dr. Pendleton at [facility]. Patient is most likely feeling more anxious and emotional d/t enclomiphene citrate. Plan at this time is to continue current regimen and follow-up with functional medicine, given emotional state, would recommend discontinuing medication. Continue exercise regimen as well as healthy eating. Flu shot given today. Patient is set to follow up 3 months. 09/21/2024 Polycythemia vera (ICD-10 - D45) Most recent hemoglobin is downtrending He gets therapeutic draws at [facility] Will get updated comprehensive labs including [...] software and direct typing Please excuse inadvertent verification specialist or typing errors, or uncorrected word substitutions Although every attempt has been made by the provider to proofread this document, occasional misspellings and typographical errors may still be present Due to the previous pandemic, and the use of personal protective equipment (PPE) This may decrease voice recognition accuracy Inadvertent verification specialist errors may occur 01/25/2025 Testicular hypofunction (ICD-10 - E29.1) Acute Concerns/Problem List: 01/25/2025 Erythrocytosis, Followed by hematology He gets therapeutic draws at [facility] echo upcoming Otherwise unremarkable Coronary calcium [...] software and direct typing Please excuse inadvertent verification specialist or typing errors, or uncorrected word substitutions Although every attempt has been made by the provider to proofread this document, occasional misspellings and typographical errors may still be present Due to the previous pandemic, and the use of personal protective equipment (PPE) This may decrease voice recognition accuracy Inadvertent verification specialist errors may occuras 12/08/2024 Testicular hypofunction (ICD-10 - E29.1) Acute Concerns/Problem List: 12/08/2024 Hypogonadism labs, update other comprehensive labs including CBC with differential He gets therapeutic draws at [facility] echo upcoming 12/2024 [facility] Coronary calcium [...] software and direct typing Please excuse inadvertent verification specialist or typing errors, or uncorrected word substitutions Although every attempt has been made by the provider to proofread this document, occasional misspellings and typographical errors may still be present Due to the previous pandemic, and the use of personal protective equipment (PPE) This may decrease voice recognition accuracy Inadvertent verification specialist errors may occur 04/27/2025 Testicular hypofunction (ICD-10 - E29.1) Acute Concerns/Problem List: 01/25/2025 Continue Flonase Singulair and immunotherapy shots Continue Lunesta at bedtime, as needed lorazepam Erythrocytosis, Followed by hematology He gets therapeutic draws at [facility] echo upcoming Otherwise unremarkable Coronary calcium [...] software and direct typing Please excuse inadvertent verification specialist or typing errors, or uncorrected word substitutions Although every attempt has been made by the provider to proofread this document, occasional misspellings and typographical errors may still be present Due to the previous pandemic, and the use of personal protective equipment (PPE) This may decrease voice recognition accuracy Inadvertent verification specialist errors may occuras 12/08/2024 Polycythemia vera (ICD-10 - D45) Acute Concerns/Problem List: 12/08/2024 Hypogonadism labs, update other comprehensive labs including CBC with differential He gets therapeutic draws at [facility] echo upcoming 12/2024 PVC Coronary calcium [...] software and direct typing Please excuse inadvertent verification specialist or typing errors, or uncorrected word substitutions Although every attempt has been made by the provider to proofread this document, occasional misspellings and typographical errors may still be present Due to the previous pandemic, and the use of personal protective equipment (PPE) This may decrease voice recognition accuracy Inadvertent verification specialist errors may occur 04/27/2025 Polycythemia vera (ICD-10 - D45) Acute Concerns/Problem List: 01/25/2025 Continue Flonase Singulair and immunotherapy shots Continue Lunesta at bedtime, as needed lorazepam Erythrocytosis, Followed by hematology He gets therapeutic draws at [facility] echo upcoming Otherwise unremarkable Coronary calcium [...] software and direct typing Please excuse inadvertent verification specialist or typing errors, or uncorrected word substitutions Although every attempt has been made by the provider to proofread this document, occasional misspellings and typographical errors may still be present Due to the previous pandemic, and the use of personal protective equipment (PPE) This may decrease voice recognition accuracy Inadvertent verification specialist errors may occuras 01/25/2025 Polycythemia vera (ICD-10 - D45) Acute Concerns/Problem List: 01/25/2025 Erythrocytosis, Followed by hematology He gets therapeutic draws at [facility] echo upcoming Otherwise unremarkable Coronary calcium [...] software and direct typing Please excuse inadvertent verification specialist or typing errors, or uncorrected word substitutions Although every attempt has been made by the provider to proofread this document, occasional misspellings and typographical errors may still be present Due to the previous pandemic, and the use of personal protective equipment (PPE) This may decrease voice recognition accuracy Inadvertent verification specialist errors may occuras 06/14/2024 Polycythemia vera (ICD-10 - D45) Hx of HTN - 118/90 today in office. Continue medication adherence with losartan/HCTZ, amlodipine, and clonidine. Hx of HLD - patient is adherent to statin therapy. Continue medication and healthy eating. Hx of achilles tendonitis - currently using celebrex, doing well. Continue tates stretching and doing light exercise. Hx polycythemia vera - follows-up with program trainer for phlebotomy. Last treatment was April, next [...] daily - prescribed by Dr. Pendleton at [facility]. Patient is most likely feeling [...] is downtrending He gets therapeutic draws at [facility] Will get updated comprehensive labs including [...] software and direct typing Please excuse inadvertent verification specialist or typing errors, or uncorrected word substitutions Although every attempt has been made by the provider to proofread this document, occasional misspellings and typographical errors may still be present Due to the previous pandemic, and the use of personal protective equipment (PPE) This may decrease voice recognition accuracy Inadvertent verification specialist errors may occur 09/21/2024 Right bundle branch block (RBBB) (ICD-10 - I45.10) Most recent hemoglobin is downtrending He gets therapeutic draws at [facility] Will get updated comprehensive labs including [...] software and direct typing Please excuse inadvertent verification specialist or typing errors, or uncorrected word substitutions Although every attempt has been made by the provider to proofread this document, occasional misspellings and typographical errors may still be present Due to the previous pandemic, and the use of personal protective equipment (PPE) This may decrease voice recognition accuracy Inadvertent verification specialist errors may occur 01/25/2025 Obstructive sleep apnea (ICD-10 - G47.33) Acute Concerns/Problem List: 01/25/2025 Erythrocytosis, Followed by hematology He gets therapeutic draws at [facility] echo upcoming Otherwise unremarkable Coronary calcium [...] software and direct typing Please excuse inadvertent verification specialist or typing errors, or uncorrected word substitutions Although every attempt has been made by the provider to proofread this document, occasional misspellings and typographical errors may still be present Due to the previous pandemic, and the use of personal protective equipment (PPE) This may decrease voice recognition accuracy Inadvertent verification specialist errors may occuras 06/14/2024 Hypogonadism male (ICD-10 - E29.1) Hx of HTN - 118/90 today in office. Continue medication adherence with losartan/HCTZ, amlodipine, and clonidine. Hx of HLD - patient is adherent to statin therapy. Continue medication and healthy eating. Hx of achilles tendonitis - currently using celebrex, doing well. Continue tates stretching and doing light exercise. Hx polycythemia vera - follows-up with program trainer for phlebotomy. Last treatment was April, next [...] daily - prescribed by Dr. Pendleton at [facility]. Patient is most likely feeling more anxious and emotional d/t enclomiphene citrate. Plan at this time is to continue current regimen and follow-up with functional medicine, given emotional state, would recommend discontinuing medication. Continue exercise regimen as well as healthy eating. Flu shot given today. Patient is set to follow up 3 months. 12/08/2024 Obstructive sleep apnea (ICD-10 - G47.33) Acute Concerns/Problem List: 12/08/2024 Hypogonadism labs, update other comprehensive labs including CBC with differential He gets therapeutic draws at [facility] echo upcoming 12/2024 [facility] Coronary calcium [...] software and direct typing Please excuse inadvertent verification specialist or typing errors, or uncorrected word substitutions Although every attempt has been made by the provider to proofread this document, occasional misspellings and typographical errors may still be present Due to the previous pandemic, and the use of personal protective equipment (PPE) This may decrease voice recognition accuracy Inadvertent verification specialist errors may occur 04/27/2025 Obstructive sleep apnea (ICD-10 - G47.33) Acute Concerns/Problem List: 01/25/2025 Continue Flonase Singulair and immunotherapy shots Continue Lunesta at bedtime, as needed lorazepam Erythrocytosis, Followed by hematology He gets therapeutic draws at [facility] echo upcoming Otherwise unremarkable Coronary calcium [...] software and direct typing Please excuse inadvertent verification specialist or typing errors, or uncorrected word substitutions Although every attempt has been made by the provider to proofread this document, occasional misspellings and typographical errors may still be present Due to the previous pandemic, and the use of personal protective equipment (PPE) This may decrease voice recognition accuracy Inadvertent verification specialist errors may occuras 04/27/2025 LBBB (left bundle branch block) (ICD-10 - I44.7) Acute Concerns/Problem List: 01/25/2025 Continue Flonase Singulair and immunotherapy shots Continue Lunesta at bedtime, as needed lorazepam Erythrocytosis, Followed by hematology He gets therapeutic draws at [facility] echo upcoming Otherwise unremarkable Coronary calcium [...] software and direct typing Please excuse inadvertent verification specialist or typing errors, or uncorrected word substitutions Although every attempt has been made by the provider to proofread this document, occasional misspellings and typographical errors may still be present Due to the previous pandemic, and the use of personal protective equipment (PPE) This may decrease voice recognition accuracy Inadvertent verification specialist errors may occuras 12/08/2024 Right bundle branch block (RBBB) (ICD-10 - I45.10) Acute Concerns/Problem List: 12/08/2024 Hypogonadism labs, update other comprehensive labs including CBC with differential He gets therapeutic draws at [facility] echo upcoming 12/2024 PVC Coronary calcium [...] software and direct typing Please excuse inadvertent verification specialist or typing errors, or uncorrected word substitutions Although every attempt has been made by the provider to proofread this document, occasional misspellings and typographical errors may still be present Due to the previous pandemic, and the use of personal protective equipment (PPE) This may decrease voice recognition accuracy Inadvertent verification specialist errors may occur 06/14/2024 Sleep concern (ICD-10 - Z76.89) Hx of HTN - 118/90 today in office. Continue medication adherence with losartan/HCTZ, amlodipine, and clonidine. Hx of HLD - patient is adherent to statin therapy. Continue medication and healthy eating. Hx of achilles tendonitis - currently using celebrex, doing well. Continue tates stretching and doing light exercise. Hx polycythemia vera - follows-up with program trainer for phlebotomy. Last treatment was April, next is Nov. 8th. Uses lorazepam prior to phlebotomy due to [...] daily - prescribed by Dr. Pendleton at [facility]. Patient is most likely feeling [...] by hematology He gets therapeutic draws at [facility] echo upcoming Otherwise unremarkable Coronary calcium [...] software and direct typing Please excuse inadvertent verification specialist or typing errors, or uncorrected word substitutions Although every attempt has been made by the provider to proofread this document, occasional misspellings and typographical errors may still be present Due to the previous pandemic, and the use of personal protective equipment (PPE) This may decrease voice recognition accuracy Inadvertent verification specialist errors may occuras 01/25/2025 Asymptomatic microscopic hematuria (ICD-10 - R31.21) Acute Concerns/Problem List: 01/25/2025 Erythrocytosis, Followed by hematology He gets therapeutic draws at [facility] echo upcoming Otherwise unremarkable Coronary calcium [...] software and direct typing Please excuse inadvertent verification specialist or typing errors, or uncorrected word substitutions Although every attempt has been made by the provider to proofread this document, occasional misspellings and typographical errors may still be present Due to the previous pandemic, and the use of personal protective equipment (PPE) This may decrease voice recognition accuracy Inadvertent verification specialist errors may occuras 04/27/2025 Encounter for examination of blood pressure without abnormal findings (ICD-10 - Z01.30) Acute Concerns/Problem List: 01/25/2025 Continue Flonase Singulair and immunotherapy shots Continue Lunesta at bedtime, as needed lorazepam Erythrocytosis, Followed by hematology He gets therapeutic draws at [facility] echo upcoming Otherwise unremarkable Coronary calcium [...] software and direct typing Please excuse inadvertent verification specialist or typing errors, or uncorrected word substitutions Although every attempt has been made by the provider to proofread this document, occasional misspellings and typographical errors may still be present Due to the previous pandemic, and the use of personal protective equipment (PPE) This may decrease voice recognition accuracy Inadvertent verification specialist errors may occuras Plan Of Treatment Pending [...] Cologuard 04/21/2019 Cologuard 08/26/2022 LIPID PANEL, STANDARD 06/20/2021 LIPID PANEL, STANDARD 02/04/2022 LIPID PANEL, STANDARD 09/21/2024 LIPID PANEL, STANDARD 08/17/2023 LIPID PANEL, STANDARD 08/26/2022 LIPID PANEL, STANDARD 03/24/2023 COMPREHENSIVE METABOLIC PANEL 03/24/2023 COMPREHENSIVE METABOLIC PANEL 09/21/2024 COMPREHENSIVE METABOLIC PANEL 08/17/2023 COMPREHENSIVE METABOLIC PANEL 02/04/2022 COMPREHENSIVE METABOLIC PANEL 08/26/2022 COMPREHENSIVE METABOLIC PANEL 06/20/2021 CBC (INCLUDES DIFF/PLT) 06/20/2021 CBC (INCLUDES DIFF/PLT) 08/26/2022 CBC (INCLUDES DIFF/PLT) 02/04/2022 CBC (INCLUDES DIFF/PLT) 09/21/2024 CBC (INCLUDES DIFF/PLT) 10/19/2023 CBC (INCLUDES DIFF/PLT) 05/26/2023 CBC (INCLUDES DIFF/PLT) 03/24/2023 URINALYSIS, COMPLETE 09/21/2024 URINALYSIS, COMPLETE 03/24/2023 URINALYSIS, COMPLETE 02/04/2022 URINALYSIS, COMPLETE 06/20/2021 URINALYSIS, COMPLETE W/REFLEX TO CULTURE 01/25/2025 HEMOGLOBIN A1c 09/21/2024 FSH 12/08/2024 LH 12/08/2024 PSA (FREE AND TOTAL) 02/04/2022 PSA, TOTAL 03/24/2023 TSH 09/21/2024 VITAMIN D,25-OH,TOTAL,IA 09/21/2024 VITAMIN D,25-OH,TOTAL,IA 08/26/2022 TESTOSTERONE, TOTAL, MS 05/26/2023 TESTOSTERONE, FREE (DIALYSIS) AND TOTAL, MS 12/08/2024 TESTOSTERONE, FREE (DIALYSIS) AND TOTAL, MS 10/19/2023 US Renal 02/04/2022 SEX HORMONE BINDING GLOBULIN 12/08/2024 Next Appt Details Provider Name:ESTELITA MELENDEZSharron, 08/15/2025 03:30:00 PM, [address] [facility], [facility] [address], [place], [address], Insurance Providers Payer Name Payer Address Payer Phone Subscriber Number Group Number Insured Name Patient Relationship to Insured Coverage Start Date Coverage End Date [facility] [address] [place] [address] [phone] [id number] DANIELLE [place] Self - patient is the [...]
== END 2025-05-22 15:48 | disposition home or self-care (01) ==
LOC: HO.HMGAL 15:42
PROVIDERS: PCP Internal Medicine; Visit Provider Registered Nurse Emergency
DX: J30.89 Other allergic rhinitis (principal)
CPT/HCPCS: 95117; 95165

== ENCOUNTER 2025-06-19 15:28 | Outpatient (AMB) | payer BC, SELFPAY ==
--- OUTSIDE RECORDS SUMMARY | 2022-07-08 | XMS_ITS | Encounter Summary ---
Author Organization [facility] Address [address] [facility] [address] [place] [address] Phone Care Team Providers Care Second Vp Hr Assessment Name Role Phone Unavailable Primary Care Provider Unavailabl e Encounter Details Date Type Department Care Team (Late st Contact Info) Description 07/08/2022 Hospital Encounter [facility] [address] [place] [address] Howard Quintana MD [address] [place] [phone] [email or web address] [email or web address] [facility] Social History Tobacco Use Types Packs/Day Years [...] is not the complete legal health record.[facility]
--- OUTSIDE RECORDS SUMMARY | 2025-06-19 17:52 | XMS_ITS | Patient Health Record ---
Author Organization [facility] [address] Address [address] [place] [address] Care Team Providers Care Kaiwhakahaere Name Role Phone KAMALA ZIEGLER Primary Care Provider NORASharron ESTELITA Unavailable [phone] Allergies No Known Allergies Results Component Value Reference Range Notes SEX HORMONE BINDING GLOBULIN Reviewed date:01/17/2025 11:20:20 [...] <6.5 % Mean Bld Glu Estim. 120 THYROID STIMULATING HORMONE Reviewed date:01/17/2025 11:20:20 AM [...] 119 <145 mg/dL Chol/HDL Ratio 4.1 0.0-4.4 ERYTHROPOIETIN Reviewed date:01/11/2025 08:31:07 AM Interpretation: Performing Lab: Notes/Report: Erythropoietin 14.9 2.6-18.5 mIU/mL Test performed at [facility], [address] , [place] [address] Brenda Becerra MD, PhD - Branch Associate CALRETICULIN MUTATION ANALYS IS Reviewed date:01/09/2025 02:23:21 PM Interpretation: Performing Lab: Notes/Report: Tumbler Plater: Ashkan Quiñones [facility], Phone: [phone] [address] [facility], [facility], [place] [id number] Performed at: - [facility] Tumbler Plater: Ashkan Quiñones [facility], Phone: [phone] [address] [place], [place] [id number] Performed at: [facility] Calreticulin (CALR) Mutation Detection Result NEGATIVE No [...] developed and its performance characteristics determined by [facility]. It has not been cleared or approved by the Food and Drug Administration. The FDA has determined that such clearance or approval is not necessary. References Note 1. Jos Plata et al. (2013) Somatic mutations of calreticulin in myeloproliferative neoplasms. [place]. J. Med. 369:8054-4521. 2. Analilia Minaya et al. (2013) Somatic CALR mutations in myeloproliferative neoplasms with nonmutated JAK2. [place]. J. Med. 369:9374-1329. Director Review: Technical Component performed at [facility] Professional Component performed by: Curly Schaeffer, PhD, [facility] Director, Molecular Oncology [facility] [id number], [address] [id number] RETICULOCYTE COUNT Reviewed date:01/09/2025 02:23:21 PM Interpretation: Performing Lab: Notes/Report: Retic Ct Abs 0.080 0.030-0.090 M/mcL Retic Ct Pct 1.7 0.7-1.7 % Immature Retic Fract 7.6 2.3-15.9 % Reticulocyte Hemoglobin 37.8 >29.0 pcg URINALYSIS WITH REFLEX MICRO SCOPIC AND CULTURE Reviewed date:01/26/2025 08:24:51 AM Interpretation: Performing Lab: Notes/Report: Specific [place] Urine 1.031 1.003-1.030 pH, Urine 6.0 5.0-8.0 [...] 3.2-5.0 g/dL Total Bilirubin 0.7 0.0-1.4 mg/dL CBC WITH AUTO DIFFERENTIAL Reviewed date:01/17/2025 08:55:39 [...] Immature Granulocytes Absolute 0.02 0.00-0.03 K/mcL Prostate-Specific Ag-[id number] Reviewed date:11/26/2024 08:46:36 AM Interpretation: Performing Lab:[facility], [address] [place] [address], [place], Phone - [phone], Director - Rebecca Notes/Report: Prostate Specific Ag 0.4 0.0-4.0 ng/mL Itzel ECLIA methodology. . According to the [place] [employer], Serum PSA should decrease and [...] HCl 0.1 MG TAKE 1 TABLET BY [facility] TWICE A DAY FOR 90 DAYS; [...] W/U Status Risk Notes Problem Polycythemia vera (321871490) Polycythemia vera (D45) Active confirmed Problem Testicular hypofunction (945830939) Testicular hypofunction (E29.1) Active confirmed Problem Vitamin D deficiency (52449178) Vitamin D deficiency, unspecified (E55.9) Active confirmed Problem Hyperlipidemia (22280187) Hyperlipidemia, unspecified (E78.5) Active confirmed Problem Primary insomnia (0178118) Primary insomnia (F51.01) Active confirmed Problem Insomnia (355064644) Other insomnia (G47.09) Active confirmed Problem Essential hypertension (43062609) Essential (primary) hypertension (I10) Active confirmed Problem Allergic rhinitis (82109355) Allergic rhinitis, unspecified (J30.9) Active confirmed Problem Chronic rhinitis (08623871) Chronic rhinitis (J31.0) Active confirmed Problem Chronic sinusitis (57047133) Chronic sinusitis, unspecified (J32.9) Active confirmed Problem Adult health examination (360840034) Encounter for general adult medical examination without abnormal findings (Z00.00) Active confirmed Problem Screening for malignant neoplasm of prostate (392569879) Encounter for screening for malignant neoplasm of prostate (Z12.5) Active confirmed Problem Screening for malignant neoplasm of skin (141824840) Encounter for screening for malignant neoplasm of skin (Z12.83) Active confirmed Problem Lipid screening (140934618) Encounter for screening for lipoid disorders (Z13.220) Active confirmed Problem Adult health examination (077639648) Adult general medical exam (Z00.00) Active confirmed Problem Vitamin D deficiency (09604954) Vitamin D deficiency (E55.9) Active confirmed Problem Male hypogonadism (34223340) Hypogonadism male (E29.1) Active confirmed Problem Diabetes mellitus screening (244049480) Diabetes mellitus screening (Z13.1) Active confirmed Problem Obstructive sleep apnea (33861649) Obstructive sleep apnea (G47.33) Active confirmed Problem Endocrine/metaboli c screening (624834820) Encounter for screening for endocrine disorder (Z13.29) Active confirmed Problem Screening for malignant neoplasm of prostate (870861536) Encounter for prostate cancer screening (Z12.5) Active confirmed Problem Left bundle branch block (65374089) LBBB (left bundle branch block) (I44.7) Active confirmed Problem Right bundle branch block (54765618) Right bundle branch block (RBBB) (I45.10) Active confirmed Vital Signs Heart Rate 83 /min 04/27/2025 Oximetry 97 % 04/27/2025 Blood pressure diastolic 80 mm Hg 04/27/2025 Height 79 in 04/27/2025 Blood pressure systolic 130 mm Hg 04/27/2025 Weight 281 lbs 04/27/2025 BMI 31.65 kg/m2 04/27/2025 Encounters Encounter Location Date Provider Diagnosis [facility] [address] [facility] [address] [facility] [address] [place] [address] 07/25/2024 KAMALA ZIEGLER [facility] [address] [facility] [address] [place] [address] 10/07/2024 ESTELITA BORHOT [facility] [address] [place] [address] 10/24/2024 ESTELITA BORHOT [facility] [address] [address] 10/24/2024 ESTELITA BORHOT [facility] [address] [address] 12/19/2024 ESTELITA BORHOT [facility] [address] [address] 12/19/2024 ESTELITA BORHOT [facility] [address] [place] [address] 12/19/2024 KAMALA ZIEGLER [facility] [address] [address] 12/23/2024 ESTELITA BORHOT [facility] [address] 04/20/2025 ESTELITA BORHOT [facility] [address] [facility] [address] [address] 12/08/2024 ESTELITA BORHOT Essential (primary) hypertension I10 ; Annual physical exam Z00.00 ; Testicular hypofunction E29.1 ; Polycythemia vera D45 ; Obstructive sleep apnea G47.33 and Right bundle branch block (RBBB) I45.10 [facility] [address] [address] 01/25/2025 ESTELITA BORHOT Essential (primary) hypertension I10 ; Testicular hypofunction E29.1 ; Polycythemia vera D45 ; Obstructive sleep apnea G47.33 ; LBBB (left bundle branch block) I44.7 and Asymptomatic microscopic hematuria R31.21 [facility] [address] [facility] [address] [address] 04/27/2025 ESTELITA BORHOT Essential (primary) hypertension I10 ; Testicular hypofunction E29.1 ; Polycythemia vera D45 ; Obstructive sleep apnea G47.33 ; LBBB (left bundle branch block) I44.7 and Encounter for examination of blood pressure without abnormal findings Z01.30 [facility] [address] [address] 09/21/2024 ESTELITA BORHOT Essential (primary) hypertension I10 ; Testicular hypofunction E29.1 ; Polycythemia vera D45 ; Obstructive sleep apnea G47.33 and Right bundle branch block (RBBB) I45.10 Assessments Encounter Date Diagnosis (ICD Code) Assessment Notes Treatment Notes Treatment Clinical Notes Section Notes 09/21/2024 Testicular hypofunction (ICD-10 - E29.1) Most recent hemoglobin is downtrending He gets therapeutic draws at [facility] Will get updated comprehensive labs including [...] software and direct typing Please excuse inadvertent district representative or typing errors, or uncorrected word substitutions Although every attempt has been made by the provider to proofread this document, occasional misspellings and typographical errors may still be present Due to the previous pandemic, and the use of personal protective equipment (PPE) This may decrease voice recognition accuracy Inadvertent district representative errors may occur 09/21/2024 Essential (primary) hypertension (ICD-10 - I10) Most recent hemoglobin is downtrending He gets therapeutic draws at [facility] Will get updated comprehensive labs including [...] software and direct typing Please excuse inadvertent district representative or typing errors, or uncorrected word substitutions Although every attempt has been made by the provider to proofread this document, occasional misspellings and typographical errors may still be present Due to the previous pandemic, and the use of personal protective equipment (PPE) This may decrease voice recognition accuracy Inadvertent district representative errors may occur 12/08/2024 Essential (primary) hypertension (ICD-10 - I10) Acute Concerns/Problem List: 12/08/2024 Hypogonadism labs, update other comprehensive labs including CBC with differential He gets therapeutic draws at [facility] echo upcoming 12/2024 PVC Coronary calcium [...] software and direct typing Please excuse inadvertent district representative or typing errors, or uncorrected word substitutions Although every attempt has been made by the provider to proofread this document, occasional misspellings and typographical errors may still be present Due to the previous pandemic, and the use of personal protective equipment (PPE) This may decrease voice recognition accuracy Inadvertent district representative errors may occur 12/08/2024 Annual physical exam (ICD-10 - Z00.00) Acute Concerns/Problem List: 12/08/2024 Hypogonadism labs, update other comprehensive labs including CBC with differential He gets therapeutic draws at [facility] echo upcoming 12/2024 PVC Coronary calcium [...] software and direct typing Please excuse inadvertent district representative or typing errors, or uncorrected word substitutions Although every attempt has been made by the provider to proofread this document, occasional misspellings and typographical errors may still be present Due to the previous pandemic, and the use of personal protective equipment (PPE) This may decrease voice recognition accuracy Inadvertent district representative errors may occur 01/25/2025 Essential (primary) hypertension (ICD-10 - I10) Acute Concerns/Problem List: 01/25/2025 Erythrocytosis, Followed by hematology He gets therapeutic draws at [facility] echo upcoming Otherwise unremarkable Coronary calcium [...] software and direct typing Please excuse inadvertent district representative or typing errors, or uncorrected word substitutions Although every attempt has been made by the provider to proofread this document, occasional misspellings and typographical errors may still be present Due to the previous pandemic, and the use of personal protective equipment (PPE) This may decrease voice recognition accuracy Inadvertent district representative errors may occuras 04/27/2025 Essential (primary) hypertension (ICD-10 - I10) Acute Concerns/Problem List: 01/25/2025 Continue Flonase Singulair and immunotherapy shots Continue Lunesta at bedtime, as needed lorazepam Erythrocytosis, Followed by hematology He gets therapeutic draws at [facility] echo upcoming Otherwise unremarkable Coronary calcium [...] software and direct typing Please excuse inadvertent district representative or typing errors, or uncorrected word substitutions Although every attempt has been made by the provider to proofread this document, occasional misspellings and typographical errors may still be present Due to the previous pandemic, and the use of personal protective equipment (PPE) This may decrease voice recognition accuracy Inadvertent district representative errors may occuras 04/27/2025 Testicular hypofunction (ICD-10 - E29.1) Acute Concerns/Problem List: 01/25/2025 Continue Flonase Singulair and immunotherapy shots Continue Lunesta at bedtime, as needed lorazepam Erythrocytosis, Followed by hematology He gets therapeutic draws at [facility] echo upcoming Otherwise unremarkable Coronary calcium [...] software and direct typing Please excuse inadvertent district representative or typing errors, or uncorrected word substitutions Although every attempt has been made by the provider to proofread this document, occasional misspellings and typographical errors may still be present Due to the previous pandemic, and the use of personal protective equipment (PPE) This may decrease voice recognition accuracy Inadvertent district representative errors may occuras 12/08/2024 Testicular hypofunction (ICD-10 - E29.1) Acute Concerns/Problem List: 12/08/2024 Hypogonadism labs, update other comprehensive labs including CBC with differential He gets therapeutic draws at [facility] echo upcoming 12/2024 PVC Coronary calcium [...] software and direct typing Please excuse inadvertent district representative or typing errors, or uncorrected word substitutions Although every attempt has been made by the provider to proofread this document, occasional misspellings and typographical errors may still be present Due to the previous pandemic, and the use of personal protective equipment (PPE) This may decrease voice recognition accuracy Inadvertent district representative errors may occur 01/25/2025 Testicular hypofunction (ICD-10 - E29.1) Acute Concerns/Problem List: 01/25/2025 Erythrocytosis, Followed by hematology He gets therapeutic draws at [facility] echo upcoming Otherwise unremarkable Coronary calcium [...] software and direct typing Please excuse inadvertent district representative or typing errors, or uncorrected word substitutions Although every attempt has been made by the provider to proofread this document, occasional misspellings and typographical errors may still be present Due to the previous pandemic, and the use of personal protective equipment (PPE) This may decrease voice recognition accuracy Inadvertent district representative errors may occuras 09/21/2024 Polycythemia vera (ICD-10 - D45) Most recent hemoglobin is downtrending He gets therapeutic draws at [facility] Will get updated comprehensive labs including [...] software and direct typing Please excuse inadvertent district representative or typing errors, or uncorrected word substitutions Although every attempt has been made by the provider to proofread this document, occasional misspellings and typographical errors may still be present Due to the previous pandemic, and the use of personal protective equipment (PPE) This may decrease voice recognition accuracy Inadvertent district representative errors may occur 01/25/2025 Polycythemia vera (ICD-10 - D45) Acute Concerns/Problem List: 01/25/2025 Erythrocytosis, Followed by hematology He gets therapeutic draws at [facility] echo upcoming Otherwise unremarkable Coronary calcium [...] software and direct typing Please excuse inadvertent district representative or typing errors, or uncorrected word substitutions Although every attempt has been made by the provider to proofread this document, occasional misspellings and typographical errors may still be present Due to the previous pandemic, and the use of personal protective equipment (PPE) This may decrease voice recognition accuracy Inadvertent district representative errors may occuras 12/08/2024 Polycythemia vera (ICD-10 - D45) Acute Concerns/Problem List: 12/08/2024 Hypogonadism labs, update other comprehensive labs including CBC with differential He gets therapeutic draws at [facility] echo upcoming 12/2024 PVC Coronary calcium [...] software and direct typing Please excuse inadvertent district representative or typing errors, or uncorrected word substitutions Although every attempt has been made by the provider to proofread this document, occasional misspellings and typographical errors may still be present Due to the previous pandemic, and the use of personal protective equipment (PPE) This may decrease voice recognition accuracy Inadvertent district representative errors may occur 09/21/2024 Obstructive sleep apnea (ICD-10 - G47.33) Most recent hemoglobin is downtrending He gets therapeutic draws at [facility] Will get updated comprehensive labs including [...] software and direct typing Please excuse inadvertent district representative or typing errors, or uncorrected word substitutions Although every attempt has been made by the provider to proofread this document, occasional misspellings and typographical errors may still be present Due to the previous pandemic, and the use of personal protective equipment (PPE) This may decrease voice recognition accuracy Inadvertent district representative errors may occur 04/27/2025 Polycythemia vera (ICD-10 - D45) Acute Concerns/Problem List: 01/25/2025 Continue Flonase Singulair and immunotherapy shots Continue Lunesta at bedtime, as needed lorazepam Erythrocytosis, Followed by hematology He gets therapeutic draws at [facility] echo upcoming Otherwise unremarkable Coronary calcium [...] software and direct typing Please excuse inadvertent district representative or typing errors, or uncorrected word substitutions Although every attempt has been made by the provider to proofread this document, occasional misspellings and typographical errors may still be present Due to the previous pandemic, and the use of personal protective equipment (PPE) This may decrease voice recognition accuracy Inadvertent district representative errors may occuras 04/27/2025 Obstructive sleep apnea (ICD-10 - G47.33) Acute Concerns/Problem List: 01/25/2025 Continue Flonase Singulair and immunotherapy shots Continue Lunesta at bedtime, as needed lorazepam Erythrocytosis, Followed by hematology He gets therapeutic draws at [facility] echo upcoming Otherwise unremarkable Coronary calcium [...] software and direct typing Please excuse inadvertent district representative or typing errors, or uncorrected word substitutions Although every attempt has been made by the provider to proofread this document, occasional misspellings and typographical errors may still be present Due to the previous pandemic, and the use of personal protective equipment (PPE) This may decrease voice recognition accuracy Inadvertent district representative errors may occuras 09/21/2024 Right bundle branch block (RBBB) (ICD-10 - I45.10) Most recent hemoglobin is downtrending He gets therapeutic draws at [facility] Will get updated comprehensive labs including [...] software and direct typing Please excuse inadvertent district representative or typing errors, or uncorrected word substitutions Although every attempt has been made by the provider to proofread this document, occasional misspellings and typographical errors may still be present Due to the previous pandemic, and the use of personal protective equipment (PPE) This may decrease voice recognition accuracy Inadvertent district representative errors may occur 12/08/2024 Obstructive sleep apnea (ICD-10 - G47.33) Acute Concerns/Problem List: 12/08/2024 Hypogonadism labs, update other comprehensive labs including CBC with differential He gets therapeutic draws at [facility] echo upcoming 12/2024 PVC Coronary calcium [...] software and direct typing Please excuse inadvertent district representative or typing errors, or uncorrected word substitutions Although every attempt has been made by the provider to proofread this document, occasional misspellings and typographical errors may still be present Due to the previous pandemic, and the use of personal protective equipment (PPE) This may decrease voice recognition accuracy Inadvertent district representative errors may occur 01/25/2025 Obstructive sleep apnea (ICD-10 - G47.33) Acute Concerns/Problem List: 01/25/2025 Erythrocytosis, Followed by hematology He gets therapeutic draws at [facility] echo upcoming Otherwise unremarkable Coronary calcium [...] software and direct typing Please excuse inadvertent district representative or typing errors, or uncorrected word substitutions Although every attempt has been made by the provider to proofread this document, occasional misspellings and typographical errors may still be present Due to the previous pandemic, and the use of personal protective equipment (PPE) This may decrease voice recognition accuracy Inadvertent district representative errors may occuras 01/25/2025 LBBB (left bundle branch block) (ICD-10 - I44.7) Acute Concerns/Problem List: 01/25/2025 Erythrocytosis, Followed by hematology He gets therapeutic draws at [facility] echo upcoming Otherwise unremarkable Coronary calcium [...] software and direct typing Please excuse inadvertent district representative or typing errors, or uncorrected word substitutions Although every attempt has been made by the provider to proofread this document, occasional misspellings and typographical errors may still be present Due to the previous pandemic, and the use of personal protective equipment (PPE) This may decrease voice recognition accuracy Inadvertent district representative errors may occuras 12/08/2024 Right bundle branch block (RBBB) (ICD-10 - I45.10) Acute Concerns/Problem List: 12/08/2024 Hypogonadism labs, update other comprehensive labs including CBC with differential He gets therapeutic draws at [facility] echo upcoming 12/2024 PVC Coronary calcium [...] software and direct typing Please excuse inadvertent district representative or typing errors, or uncorrected word substitutions Although every attempt has been made by the provider to proofread this document, occasional misspellings and typographical errors may still be present Due to the previous pandemic, and the use of personal protective equipment (PPE) This may decrease voice recognition accuracy Inadvertent district representative errors may occur 04/27/2025 LBBB (left bundle branch block) (ICD-10 - I44.7) Acute Concerns/Problem List: 01/25/2025 Continue Flonase Singulair and immunotherapy shots Continue Lunesta at bedtime, as needed lorazepam Erythrocytosis, Followed by hematology He gets therapeutic draws at [facility] echo upcoming Otherwise unremarkable Coronary calcium [...] software and direct typing Please excuse inadvertent district representative or typing errors, or uncorrected word substitutions Although every attempt has been made by the provider to proofread this document, occasional misspellings and typographical errors may still be present Due to the previous pandemic, and the use of personal protective equipment (PPE) This may decrease voice recognition accuracy Inadvertent district representative errors may occuras 04/27/2025 Encounter for examination of blood pressure without abnormal findings (ICD-10 - Z01.30) Acute Concerns/Problem List: 01/25/2025 Continue Flonase Singulair and immunotherapy shots Continue Lunesta at bedtime, as needed lorazepam Erythrocytosis, Followed by hematology He gets therapeutic draws at [facility] echo upcoming Otherwise unremarkable Coronary calcium [...] software and direct typing Please excuse inadvertent district representative or typing errors, or uncorrected word substitutions Although every attempt has been made by the provider to proofread this document, occasional misspellings and typographical errors may still be present Due to the previous pandemic, and the use of personal protective equipment (PPE) This may decrease voice recognition accuracy Inadvertent district representative errors may occuras 01/25/2025 Asymptomatic microscopic hematuria (ICD-10 - R31.21) Acute Concerns/Problem List: 01/25/2025 Erythrocytosis, Followed by hematology He gets therapeutic draws at [facility] echo upcoming Otherwise unremarkable Coronary calcium [...] software and direct typing Please excuse inadvertent district representative or typing errors, or uncorrected word substitutions Although every attempt has been made by the provider to proofread this document, occasional misspellings and typographical errors may still be present Due to the previous pandemic, and the use of personal protective equipment (PPE) This may decrease voice recognition accuracy Inadvertent district representative errors may occuras Plan Of Treatment Pending [...] Cologuard 04/21/2019 Cologuard 08/26/2022 LIPID PANEL, STANDARD 08/17/2023 LIPID PANEL, STANDARD 08/26/2022 LIPID PANEL, STANDARD 03/24/2023 LIPID PANEL, STANDARD 02/04/2022 LIPID PANEL, STANDARD 09/21/2024 LIPID PANEL, STANDARD 06/20/2021 COMPREHENSIVE METABOLIC PANEL 06/20/2021 COMPREHENSIVE METABOLIC PANEL 09/21/2024 COMPREHENSIVE METABOLIC PANEL 02/04/2022 COMPREHENSIVE METABOLIC PANEL 03/24/2023 COMPREHENSIVE METABOLIC PANEL 08/26/2022 COMPREHENSIVE METABOLIC PANEL 08/17/2023 CBC (INCLUDES DIFF/PLT) 08/26/2022 CBC (INCLUDES DIFF/PLT) 03/24/2023 CBC (INCLUDES DIFF/PLT) 05/26/2023 CBC (INCLUDES DIFF/PLT) 10/19/2023 CBC (INCLUDES DIFF/PLT) 02/04/2022 CBC (INCLUDES DIFF/PLT) 09/21/2024 CBC (INCLUDES DIFF/PLT) 06/20/2021 URINALYSIS, COMPLETE 06/20/2021 URINALYSIS, COMPLETE 09/21/2024 URINALYSIS, COMPLETE 02/04/2022 URINALYSIS, COMPLETE 03/24/2023 URINALYSIS, COMPLETE W/REFLEX TO CULTURE 01/25/2025 HEMOGLOBIN A1c 09/21/2024 FSH 12/08/2024 LH 12/08/2024 PSA (FREE AND TOTAL) 02/04/2022 PSA, TOTAL 03/24/2023 TSH 09/21/2024 VITAMIN D,25-OH,TOTAL,IA 09/21/2024 VITAMIN D,25-OH,TOTAL,IA 08/26/2022 TESTOSTERONE, TOTAL, MS 05/26/2023 TESTOSTERONE, FREE (DIALYSIS) AND TOTAL, MS 10/19/2023 TESTOSTERONE, FREE (DIALYSIS) AND TOTAL, MS 12/08/2024 US Renal 02/04/2022 SEX HORMONE BINDING GLOBULIN 12/08/2024 Next Appt Details Provider Name:ESTELITA FRANCO, 08/15/2025 03:30:00 PM, [address] [place] [address], [place], [address], Insurance Providers Payer Name Payer Address Payer Phone Subscriber Number Group Number Insured Name Patient Relationship to Insured Coverage Start Date Coverage End Date [facility] [address] [place] [address] [phone] [id number] 12 [id number] DANIELLE LOUIS Self - patient is the [...]
--- OUTSIDE RECORDS SUMMARY | 2025-06-19 17:52 | XMS_ITS | Clinical Summary ---
Author Organization [facility] Address [address] [address] Phone Care Team Providers Care Lightout Examiner Name Role Phone Pcp, Not Required Primary [...] by mouth every evening. 3 Active omega 4-XFJ-YZJ-fish oil (FISH OIL) 60-90-500 mg capsule 1 [...] this topic Medical Devices Implanted Type Area Architectural Design Lecturer Device Identifier Shelf Expiration Date Model / Serial / Lot Prosthetic Joint Prosthetic Joint Knee Dental Insurance BLUE CROSS OUT OF STATE PPO BLUE CROSS OUT OF STATE PPO BLUE CROSS OUT OF STATE PPO BLUE CROSS OUT OF STATE PPO BLUE CROSS OUT OF STATE PPO BLUE CROSS OUT OF STATE PPO Care Teams Lightout Examiner Relationship Specialty Start Date End Date Pcp, Not Required [address] [place] [address] PCP - General 11/17/22 Additional Source Comments The information contained in this document represents components of the legal health record. It is not the complete legal health record.[facility]
--- OUTSIDE RECORDS SUMMARY | 2025-06-19 17:52 | XMS_ITS | Clinical Summary ---
Author Organization [facility] Address [address] [place] [address] Phone Care Team Providers Care Graphics Specialist Name Role Phone Juancarlos Phoenix MD Primary Care Provider [phone] Allergies Active Allergy Reactions Criticality Noted Date [...] Description 08/22/2025 3:45 PM EST Office Visit [facility] Hematology Oncology [address] [place] [phone] Geremias Moe MD [address] [place] [address] Health Maintenance Due Date Last Done Comments [...] LDL (01/13/2025 8:41 AM EDT) Pathologist [facility] Cholesterol 157 0 - 200 mg/dL LAB CHEMISTRY METHOD 01/13/2025 12:35 PM EDT [facility] Triglycerides 154(H) 0 - 150 mg/dL LAB CHEMISTRY METHOD 01/13/2025 12:35 PM EDT [facility] HDL 38(L) >=40 mg/dL LAB CHEMISTRY METHOD 01/13/2025 12:35 PM EDT [facility] LDL Calculated 88 0 - 100 mg/dL LAB CHEMISTRY METHOD 01/13/2025 12:35 PM EDT [facility] VLDL Cholesterol Basil 30.8 mg/dL LAB CHEMISTRY METHOD 01/13/2025 12:35 PM EDT [facility] Non HDL Chol. (LDL+VLDL) 119 <145 mg/dL LAB CHEMISTRY METHOD 01/13/2025 12:35 PM EDT [facility] Chol/HDL Ratio 4.1 0.0 - 4.4 LAB CHEMISTRY METHOD 01/13/2025 12:35 PM [facility] Blood Venous blood specimen / Unknown Venipuncture / Unknown 01/13/2025 8:41 AM EDT 01/13/2025 12:12 PM EDT us Livia Burns POLICY SPECIALIST LAB BLOOD ORDERABLES Final Re sult [facility] [address] [place] [address], [place] [phone] * (ABNORMAL) Comprehensive metabolic panel (01/13/2025 8:41 AM EDT) Sodium 141 133 - 145 mmol/L LAB CHEMISTRY METHOD 01/13/2025 12:35 PM EDT [facility] Potassium 4.1 3.5 - 5.5 mmol/L LAB CHEMISTRY METHOD 01/13/2025 12:35 PM T [facility] Chloride 107 96 - 110 mmol/L LAB CHEMISTRY METHOD 01/13/2025 12:35 PM [facility] CO2 27 21 - 32 mmol/L LAB CHEMISTRY METHOD 01/13/2025 12:35 PM EDT [facility] Anion Gap 7 3 - 11 LAB CHEMISTRY METHOD 01/13/2025 12:35 PM [facility] Glucose 116(H) 70 - 100 mg/dL LAB CHEMISTRY METHOD 01/13/2025 12:35 PM [facility] BUN 17 5 - 25 mg/dL LAB CHEMISTRY METHOD 01/13/2025 12:35 PM [facility] Creatinine 0.99 0.70 - 1.30 mg/dL LAB CHEMISTRY METHOD 01/13/2025 12:35 PM [facility] eGFR 86 >=60 mL/min/1. 73m2 LAB CHEMISTRY METHOD 01/13/2025 12:35 PM [facility] Comment:Calculation based on the Chronic Kidney Disease Epidemiology Collaboration (CKD-EPI) equation refit without adjustment for race. BUN/Creatinine Ratio 17.2 LAB CHEMISTRY METHOD 01/13/2025 12:35 PM [facility] Calcium 9.8 8.5 - 10.5 mg/dL LAB CHEMISTRY METHOD 01/13/2025 12:35 PM [facility] AST (SGOT) 27 10 - 42 unit/L LAB CHEMISTRY METHOD 01/13/2025 12:35 PM [facility] ALT (SGPT) 49 10 - 60 unit/L LAB CHEMISTRY METHOD 01/13/2025 12:35 PM [facility] Alkaline Phosphatase 83 42 - 121 unit/L LAB CHEMISTRY METHOD 01/13/2025 12:35 PM [facility] Total Protein 7.4 6.0 - 8.0 g/dL LAB CHEMISTRY METHOD 01/13/2025 12:35 PM [facility] Albumin 4.0 3.2 - 5.0 g/dL LAB CHEMISTRY METHOD 01/13/2025 12:35 PM [facility] Total Bilirubin 0.7 0.0 - 1.4 mg/dL LAB CHEMISTRY METHOD 01/13/2025 12:35 PM [facility] Blood Venous blood specimen / Unknown Venipuncture / Unknown 01/13/2025 8:41 AM EDT 01/13/2025 12:12 PM EDT us Livia Burns POLICY SPECIALIST LAB BLOOD ORDERABLES Final Re sult [facility] ([facility] [address] [place] [address], from Last 3 Months or Most Recently Relevant to Health Maintenance Insurance [facility] Care Teams Graphics Specialist Relationship Specialty Start Date End Date Juancarlos Phoenix MD [address] [place] [address] PCP - General Internal Medicine 04/05/18
--- OUTSIDE RECORDS SUMMARY | 2025-06-19 17:52 | XMS_ITS | Clinical Summary ---
Author Organization [facility] Address [address] [place] [address] Care Team Providers Care Bootmaker Hand Name Role Phone Juancarlos Phoenix MD Primary Care Provider [phone] Allergies Active Allergy Reactions Criticality Noted Date [...] age to complete this topic Care Teams Bootmaker Hand Relationship Specialty Start Date End Date Juancarlos Phoenix MD [address] [place] [address] PCP - General Internal Medicine 04/05/18
--- OUTSIDE RECORDS SUMMARY | 2025-06-19 17:52 | XMS_ITS | Encounter Summary ---
Author Organization [facility] Address [address] [facility] [address] [place] [address] Phone Care Team Providers Care Nuclear Medicine Supervisor Name Role Phone Pcp, Not Required Primary Care Provider Debbiea nia Encounter Details Date Type Department Care Team (Late st Contact Info) Description 04/01/2023 Procedure Pass [facility] MAIN PERIOP DEPT [address] [place] [address] Social History Tobacco Use Types Packs/Day Years [...] on filedocumented in this encounter Care Teams Nuclear Medicine Supervisor Relationship Specialty Start Date End Date Pcp, Not Required [address] [place] [address] PCP - General 11/17/22 documented as of this encounter Additional Source Comments The information contained in this document represents components of the legal health record. It is not the complete legal health record.[facility]
== END 2025-06-19 15:28 | disposition home or self-care (01) ==
LOC: HO.HMGAL 15:28
PROVIDERS: PCP Internal Medicine; Visit Provider Registered Nurse Emergency
DX: J30.89 Other allergic rhinitis (principal)
CPT/HCPCS: 95117; 95165

== ENCOUNTER 2025-06-30 08:57 | Outpatient (REF) | payer BC, SELFPAY ==
--- OUTSIDE RECORDS SUMMARY | 2022-07-08 | XMS_ITS | Encounter Summary ---
Author Organization [facility] Address [address] [facility] [address] [place] [address] Phone Care Team Providers Care Senior Test Engineer Name Role Phone Unavailable Primary Care Provider Unavailabl e Encounter Details Date Type Department Care Team (Late st Contact Info) Description 07/08/2022 Hospital Encounter [facility] [address] [place] [address] Howard Quintana MD [address] [place] [phone] [email or web address] .[facility] Social History Tobacco Use Types [...] It is not the complete legal health record.[facility]
--- OUTSIDE RECORDS SUMMARY | 2024-02-24 11:30 | XMS_ITS ---
Author Organization [facility] Address [address] [place] [address] Care Team Providers Care Electric Fork Operator Name Role Phone KAMALA ZIEGLER Primary Care Provider [phone] ESTELITA FRANCO Unavailable [phone] LEYLA HAQUE Unavailable [phone] Medications Medication SIG (Take, Route, Frequency, Duration) [...] Diagnosis [facility] [address] [facility] [place] [address] 02/24/2024 LEYLA HAQUE Plan Of Treatment Next Appt Details Provider Name:ESTELITA FRANCO, 08/15/2025 03:30:00 PM, [address] [facility], [address], [place], [address], Progress Notes * DANIELLE LOUIS IIIDOB:1960 (64 yo M)Acc No.[id number]:02/24/2024 Progress Notes Patient: DANIELLE MERAZ III Provider: Elliot BAPTISTE PA-C :1960 A ge:63 Y S ex:Male Date:02/24/2024 Address:[address] [place] [address], [facility], [id number] Pcp:KAMALA ZIEGLER Subjective: * Chief Complaints: * [...] Electronic signature of TAYLOR HAQUE PA-C on 06/30/2025 at 09:34 AM EDT Sign off status: Pending * Provider: Elliot BAPTISTE PA-C Date: 0 02/24/2024 Generated for Hailee bender/Layla/Olivia on: 1 09:34 AM EDT
--- OUTSIDE RECORDS SUMMARY | 2024-02-25 11:15 | XMS_ITS ---
Author Organization [facility] [address] Address [address] [place] [address] Care Team Providers Care Terrazzo Installer Name Role Phone KAMALA ZIEGLER Primary Care Provider [phone] JOAN ESTELITA Unavailable [phone] LEYLA HAQUE Unavailable [phone] Encounters Encounter Location Date Provider Diagnosis [facility] [address] [place] [address] 02/25/2024 LEYLA HAQUE Plan Of Treatment Next Appt Details Provider Name:ESTELITA FRANCO, 08/15/2025 03:30:00 PM, [address] [facility], [facility] [address], [place], [address], Progress Notes * DANIELLE LOUIS IIIDOB:1960 (64 yo M)Acc No.[id number]:02/25/2024 Progress Notes Patient: Rajan RAMOS DANIELLE GOOD Provider: Elliot BAPTISTE PA-C :1960 A ge:63 Y S ex:Male Date:02/25/2024 Address:[address], [id number] Pcp:KAMALA ZIEGLER Subjective: * Chief Complaints: * * Medical History: Objective: * Vitals: Assessment: Plan: * Treatment: * Images: Billing Information: * Visit Code: * Procedure Codes: Care Plan Details* * Electronic signature of TAYLOR HAQUE PA-C on 06/30/2025 at 09:35 AM EDT Sign off status: Pending * Provider: Elliot BAPTISTE PA-C Date: 0 02/25/2024 Generated for Hailee bender/Layla/Olivia on: 1 09:35 AM EDT
--- OUTSIDE RECORDS SUMMARY | 2025-06-30 09:35 | XMS_ITS | Clinical Summary ---
Author Organization [facility] Address [address] [place] [address] Care Team Providers Care Application Integration Architect Name Role Phone Juancarlos Phoenix MD Primary Care Provider [phone] Allergies Active Allergy Reactions Criticality Noted Date [...] age to complete this topic Care Teams Application Integration Architect Relationship Specialty Start Date End Date Juancarlos hPoenix MD [address] [place] [address] PCP - General Internal Medicine 04/05/18
--- OUTSIDE RECORDS SUMMARY | 2025-06-30 09:35 | XMS_ITS | Clinical Summary ---
Author Organization [facility] Address [address] [address] Phone Care Team Providers Care Furniture Technician Name Role Phone Pcp, Not Required [...] by mouth every evening. 3 Active omega 4-GCU-KWI-fish oil (FISH OIL) 60-90-500 mg capsule 1 [...] this topic Medical Devices Implanted Type Area Miter Sawyer Device Identifier Shelf Expiration Date Model / Serial / Lot Prosthetic Joint Prosthetic Joint Knee Dental Insurance BLUE CROSS OUT OF STATE PPO BLUE CROSS OUT OF STATE PPO BLUE CROSS OUT OF STATE PPO BLUE CROSS OUT OF STATE PPO BLUE CROSS OUT OF STATE PPO BLUE CROSS OUT OF STATE PPO Care Teams Furniture Technician Relationship Specialty Start Date End Date Pcp, Not Required [address] [place] [address] PCP - General 11/17/22 Additional Source Comments The information contained in this document represents components of the legal health record. It is not the complete legal health record.[facility]
--- OUTSIDE RECORDS SUMMARY | 2025-06-30 09:35 | XMS_ITS | Clinical Summary ---
Author Organization [facility] Address [address] [place] [address] Phone Care Team Providers Care Poultry Packer Name Role Phone Juancarlos Phoenix MD Primary Care Provider [phone] Allergies Active Allergy Reactions Criticality Noted Date [...] Description 08/22/2025 3:45 PM EST Office Visit [facility] Hematology Oncology [address] [place] [phone] Geremias Moe MD [address] [place] [address] Health Maintenance Due Date Last Done Comments DTaP,Tdap,and Td Vaccines (1 - Tdap) 1981 Pneumococcal Vaccine: 50+ Years (1 of 2 - PCV) 1981 RSV Immunization Adult Patients (1 - Risk 50-74 years 1-dose series) 2012 HIV Screening 10/18/2023 Hepatitis C Screening 10/18/2023 [...] to direct LDL (01/13/2025 8:41 AM EDT) Cholesterol 157 0 - 200 mg/dL LAB CHEMISTRY METHOD 01/13/2025 12:35 PM EDT [facility] Triglycerides 154(H) 0 - 150 mg/dL LAB CHEMISTRY METHOD 01/13/2025 12:35 PM EDT [facility] HDL 38(L) >=40 mg/dL LAB CHEMISTRY METHOD 01/13/2025 12:35 PM EDT [facility] LDL Calculated 88 0 - 100 mg/dL LAB CHEMISTRY METHOD 01/13/2025 12:35 PM EDT [facility] VLDL Cholesterol Basil 30.8 mg/dL LAB CHEMISTRY METHOD 01/13/2025 12:35 PM EDT [facility] Non HDL Chol. (LDL+VLDL) 119 <145 mg/dL LAB CHEMISTRY METHOD 01/13/2025 12:35 PM EDT [facility] Chol/HDL Ratio 4.1 0.0 - 4.4 LAB CHEMISTRY METHOD 01/13/2025 12:35 PM EDT [facility] Blood Venous blood specimen / Unknown Venipuncture / Unknown 01/13/2025 8:41 AM EDT 01/13/2025 12:12 PM EDT us Livia Burns DIETITIAN HELPER LAB BLOOD ORDERABLES Final Re sult [facility] [address] [place] [address], [place] [phone] * (ABNORMAL) Comprehensive metabolic panel (01/13/2025 8:41 AM EDT) Sodium 141 133 - 145 mmol/L LAB CHEMISTRY METHOD 01/13/2025 12:35 PM EDT [facility] Potassium 4.1 3.5 - 5.5 mmol/L LAB CHEMISTRY METHOD 01/13/2025 12:35 PM EDT [facility] Chloride 107 96 - 110 mmol/L LAB CHEMISTRY METHOD 01/13/2025 12:35 PM [facility] CO2 27 21 - 32 mmol/L LAB CHEMISTRY METHOD 01/13/2025 12:35 PM EDT [facility] Anion Gap 7 3 - 11 LAB CHEMISTRY METHOD 01/13/2025 12:35 PM [facility] Glucose 116(H) 70 - 100 mg/dL LAB CHEMISTRY METHOD 01/13/2025 12:35 PM [facility] BUN 17 5 - 25 mg/dL LAB CHEMISTRY METHOD 01/13/2025 12:35 PM [facility] Creatinine 0.99 0.70 - 1.30 mg/dL LAB CHEMISTRY METHOD 01/13/2025 12:35 PM [facility] eGFR 86 >=60 mL/min/1. 73m2 LAB CHEMISTRY METHOD 01/13/2025 12:35 PM [facility] Comment:Calculation based on the Chronic Kidney Disease Epidemiology Collaboration (CKD-EPI) equation refit without adjustment for race. BUN/Creatinine Ratio 17.2 LAB CHEMISTRY METHOD 01/13/2025 12:35 PM [facility] Calcium 9.8 8.5 - 10.5 mg/dL LAB CHEMISTRY METHOD 01/13/2025 12:35 PM [facility] AST (SGOT) 27 10 - 42 unit/L LAB CHEMISTRY METHOD 01/13/2025 12:35 PM [facility] ALT (SGPT) 49 10 - 60 unit/L LAB CHEMISTRY METHOD 01/13/2025 12:35 PM [facility] Alkaline Phosphatase 83 42 - 121 unit/L LAB CHEMISTRY METHOD 01/13/2025 12:35 PM [facility] Total Protein 7.4 6.0 - 8.0 g/dL LAB CHEMISTRY METHOD 01/13/2025 12:35 PM [facility] Albumin 4.0 3.2 - 5.0 g/dL LAB CHEMISTRY METHOD 01/13/2025 12:35 PM [facility] Total Bilirubin 0.7 0.0 - 1.4 mg/dL LAB CHEMISTRY METHOD 01/13/2025 12:35 PM [facility] Blood Venous blood specimen / Unknown Venipuncture / Unknown 01/13/2025 8:41 AM EDT 01/13/2025 12:12 PM EDT us Livia Burns DIETITIAN HELPER LAB BLOOD ORDERABLES Final Re sult [facility] [address] [place] [address], from Last 3 Months or Most Recently Relevant to Health Maintenance Insurance [facility] Care Teams Poultry Packer Relationship Specialty Start Date End Date Juancarlos Phoenix MD [address] [place] [address] PCP - General Internal Medicine 04/05/18
--- OUTSIDE RECORDS SUMMARY | 2025-06-30 09:36 | XMS_ITS | Encounter Summary ---
Author Organization [facility] Address [address] [facility] [address] [place] [address] Phone Care Team Providers Care Oil Pumper Name Role Phone Pcp, Not Required Primary Care Provider Debbiea nia Encounter Details Date Type Department Care Team (Late st Contact Info) Description 04/01/2023 Procedure Pass [facility] MAIN PERIOP DEPT [address] [place] [address] Social History Tobacco Use Types Packs/Day Years [...] on filedocumented in this encounter Care Teams Oil Pumper Relationship Specialty Start Date End Date Pcp, Not Required [address] [place] [address] PCP - General 11/17/22 documented as of this encounter Additional Source Comments The information contained in this document represents components of the legal health record. It is not the complete legal health record.[facility]
--- OUTSIDE RECORDS SUMMARY | 2025-06-30 09:36 | XMS_ITS | Patient Health Record ---
Author Organization [facility] [address] Address [address] [place] [address] Care Team Providers Care Environmental Services Technician Name Role Phone ZIEGLERYOMICHAVA Primary Care Provider ESTELITA FRANCO Unavailable [phone] Allergies No Known Allergies Results Component Value Reference Range Notes LIPID PANEL WITH REFLEX TO D IRECT LDL Reviewed date:01/17/2025 11:20:20 AM Interpretation: Performing Lab: Notes/Report: Cholesterol 157 0-200 mg/dL Triglycerides 154 0-150 mg/dL HDL 38 >=40 mg/dL LDL Calculated 88 0-100 mg/dL VLDL Cholesterol Basil 30.8 Non HDL Chol. (LDL+VLDL) 119 <145 mg/dL Chol/HDL Ratio 4.1 0.0-4.4 VITAMIN D 25 HYDROXY Reviewed date:01/17/2025 11:20:24 AM Interpretation: Performing Lab: Notes/Report: Vit D, 25-Hydroxy 40.3 30.0-80.0 ng/mL THYROID STIMULATING HORMONE Reviewed date:01/17/2025 11:20:20 AM Interpretation: Performing Lab: Notes/Report: TSH 2.42 0.40-4.00 mcIU/mL HEMOGLOBIN A1C Reviewed date:01/17/2025 11:20:20 AM Interpretation: Performing Lab: Notes/Report: Hemoglobin A1C 5.8 <6.5 % Mean Bld Glu Estim. 120 FOLLICLE STIMULATING HORMONE Reviewed date:01/17/2025 11:20:20 AM Interpretation: Performing Lab: Notes/Report: Follicle Stimulating Hormone 15.3 0.7-10.8 mIU/mL LUTEINIZING HORMONE Reviewed date:01/17/2025 11:20:20 AM Interpretation: Performing Lab: Notes/Report: Luteinizing Hormone 5.5 1.2-10.6 mIU/mL TESTOSTERONE FREE, BIOAVAILA BLE AND TOTAL Reviewed [...] for 72 hours. Albumin 4.0 3.2-5.0 g/dL SEX HORMONE BINDING GLOBULIN Reviewed date:01/17/2025 11:20:20 [...] refraining from biotin supplements for 72 hours. URINALYSIS MICROSCOPIC ONLY Reviewed date:01/17/2025 08:55:39 AM [...] K/mcL Immature Granulocytes Absolute 0.01 0.00-0.03 K/mcL Prostate-Specific Ag-[id number] Reviewed date:11/26/2024 08:46:36 AM Interpretation: Performing Lab:Nigel Tapia, [address] [facility], [place], Phone - [phone], Director - Rebecca Notes/Report: Prostate Specific Ag 0.4 0.0-4.0 ng/mL Itzel ECLIA methodology. . According to the [employer], Serum PSA should decrease and [...] 08:24:51 AM Interpretation: Performing Lab: Notes/Report: Specific Amma Urine 1.031 1.003-1.030 pH, Urine 6.0 5.0-8.0 pH Leukocytes, Urine Negative Negative Nitrite, Urine Negative Negative Protein, Urine Trace <=Trace mg/dL Glucose, Urine Negative Negative mg/dL Ketones, Urine Trace Negative mg/dL Urobilinogen, Urine 1.0 0.2-1.0 mg/dL Bilirubin, Urine Negative Negative Blood, Urine Negative Negative ERYTHROPOIETIN Reviewed date:01/11/2025 08:31:07 AM Interpretation: Performing Lab: Notes/Report: Erythropoietin 14.9 2.6-18.5 mIU/mL Test performed at [facility], [address] [place] [address] Brenda Becerra MD, PhD - Research Chief Engineer CALRETICULIN MUTATION ANALYS IS Reviewed date:01/09/2025 02:23:21 PM Interpretation: Performing Lab: Notes/Report: Performed at: 01 - [facility] [address] [facility], [place] [id number] [employer]: Ashkan Quiñones [facility], Phone: [phone] Performed at: - [facility] [address] [facility] [id number] [employer]: Ashkan Quiñones [facility], Phone: [phone] Calreticulin (CALR) Mutation Detection Result NEGATIVE No [...] developed and its performance characteristics determined by [employer]. It has not been cleared or approved by the Food and Drug Administration. The FDA has determined that such clearance or approval is not necessary. References Note 1. Jos Plata et al. (2013) Somatic mutations of calreticulin in myeloproliferative neoplasms. [place]l. J. Med. 369:7855-1689. 2. Analilia Minaya et al. (2013) Somatic CALR mutations in myeloproliferative neoplasms with nonmutated JAK2. [place]l. J. Med. [phone]. Director Review: Technical Component performed at [facility] Professional Component performed by: Curly Schaeffer, PhD, [facility] Director, Molecular Oncology [facility] [id number], [id number] [id number] RETICULOCYTE COUNT Reviewed date:01/09/2025 02:23:21 PM Interpretation: Performing Lab: Notes/Report: Retic Ct Abs 0.080 0.030-0.090 M/mcL Retic Ct Pct 1.7 0.7-1.7 % Immature Retic Fract 7.6 2.3-15.9 % Reticulocyte Hemoglobin 37.8 >29.0 pcg CBC WITH AUTO DIFFERENTIAL Reviewed date:01/09/2025 02:29:41 [...] K/mcL Immature Granulocytes Absolute 0.02 0.00-0.03 K/mcL Reason For Referral No Information Medications Medication [...] HCl 0.1 MG TAKE 1 TABLET BY [facility] TWICE A DAY FOR 90 DAYS; [...] W/U Status Risk Notes Problem Polycythemia vera (884538968) Polycythemia vera (D45) Active confirmed Problem Testicular hypofunction (626900736) Testicular hypofunction (E29.1) Active confirmed Problem Vitamin D deficiency (23531974) Vitamin D deficiency, unspecified (E55.9) Active confirmed Problem Hyperlipidemia (83654666) Hyperlipidemia, unspecified (E78.5) Active confirmed Problem Primary insomnia (3373992) Primary insomnia (F51.01) Active confirmed Problem Insomnia (832963693) Other insomnia (G47.09) Active confirmed Problem Essential hypertension (22929235) Essential (primary) hypertension (I10) Active confirmed Problem Allergic rhinitis (26248171) Allergic rhinitis, unspecified (J30.9) Active confirmed Problem Chronic rhinitis (96102998) Chronic rhinitis (J31.0) Active confirmed Problem Chronic sinusitis (34778174) Chronic sinusitis, unspecified (J32.9) Active confirmed Problem Adult health examination (958667459) Encounter for general adult medical examination without abnormal findings (Z00.00) Active confirmed Problem Screening for malignant neoplasm of prostate (425419170) Encounter for screening for malignant neoplasm of prostate (Z12.5) Active confirmed Problem Screening for malignant neoplasm of skin (892608359) Encounter for screening for malignant neoplasm of skin (Z12.83) Active confirmed Problem Lipid screening (032689183) Encounter for screening for lipoid disorders (Z13.220) Active confirmed Problem Adult health examination (569562305) Adult general medical exam (Z00.00) Active confirmed Problem Vitamin D deficiency (59681785) Vitamin D deficiency (E55.9) Active confirmed Problem Male hypogonadism (76247237) Hypogonadism male (E29.1) Active confirmed Problem Diabetes mellitus screening (948854850) Diabetes mellitus screening (Z13.1) Active confirmed Problem Obstructive sleep apnea (05363354) Obstructive sleep apnea (G47.33) Active confirmed Problem Endocrine/metaboli c screening (031528033) Encounter for screening for endocrine disorder (Z13.29) Active confirmed Problem Screening for malignant neoplasm of prostate (195832399) Encounter for prostate cancer screening (Z12.5) Active confirmed Problem Left bundle branch block (74622634) LBBB (left bundle branch block) (I44.7) Active confirmed Problem Right bundle branch block (11578395) Right bundle branch block (RBBB) (I45.10) Active confirmed Vital Signs Heart Rate 83 /min 04/27/2025 Oximetry 97 % 04/27/2025 Blood pressure diastolic 80 mm Hg 04/27/2025 Height 79 in 04/27/2025 Blood pressure systolic 130 mm Hg 04/27/2025 Weight 281 lbs 04/27/2025 BMI 31.65 kg/m2 04/27/2025 Encounters Encounter Location Date Provider [facility] [address] [place] [id number] 09/21/2024 ESTELITA FRANCO Essential (primary) hypertension I10 ; Testicular hypofunction E29.1 ; Polycythemia vera D45 ; Obstructive sleep apnea G47.33 and Right bundle branch block (RBBB) I45.10 [facility] [address] [address] 12/08/2024 ESTELITA BORHOT Essential (primary) hypertension I10 ; Annual physical exam Z00.00 ; Testicular hypofunction E29.1 ; Polycythemia vera D45 ; Obstructive sleep apnea G47.33 and Right bundle branch block (RBBB) I45.10 [facility] [address] [address] 01/25/2025 ESTELITA BORHOT Essential (primary) hypertension I10 ; Testicular hypofunction E29.1 ; Polycythemia vera D45 ; Obstructive sleep apnea G47.33 ; LBBB (left bundle branch block) I44.7 and Asymptomatic microscopic hematuria R31.21 [facility] [address] [address] 04/27/2025 ESTELITA BORHOT Essential (primary) hypertension I10 ; Testicular hypofunction E29.1 ; Polycythemia vera D45 ; Obstructive sleep apnea G47.33 ; LBBB (left bundle branch block) I44.7 and Encounter for examination of blood pressure without abnormal findings Z01.30 [facility] [address] 07/25/2024 KAMALA ZIEGLER [facility] [address] [facility] [address] 10/07/2024 ESTELITA SHADHOT [facility] [address] [place] [address] 10/24/2024 ESTELITA BORHOT [facility] [address] 10/24/2024 ESTELITA BORHOT [facility] [address] [address] 12/19/2024 ESTELITA BORHOT [facility] [address] 12/19/2024 ESTELITA BORHOT [facility] [address] [place] [address] 12/19/2024 KAMALA BISHOPAN [facility] [address] [address] 12/23/2024 [facility] [address] [facility] [address] [place] [address] 04/20/2025 ESTELITA FRANCO Assessments Encounter Date Diagnosis (ICD Code) Assessment Notes Treatment Notes Treatment Clinical Notes Section Notes 09/21/2024 Testicular hypofunction (ICD-10 - E29.1) Most recent hemoglobin is downtrending He gets therapeutic draws at [facility] Will get updated comprehensive labs including [...] software and direct typing Please excuse inadvertent teaching dietitian or typing errors, or uncorrected word substitutions Although every attempt has been made by the provider to proofread this document, occasional misspellings and typographical errors may still be present Due to the previous pandemic, and the use of personal protective equipment (PPE) This may decrease voice recognition accuracy Inadvertent teaching dietitian errors may occur 09/21/2024 Essential (primary) hypertension (ICD-10 - I10) Most recent hemoglobin is downtrending He gets therapeutic draws at [facility] Will get updated comprehensive labs including [...] software and direct typing Please excuse inadvertent teaching dietitian or typing errors, or uncorrected word substitutions Although every attempt has been made by the provider to proofread this document, occasional misspellings and typographical errors may still be present Due to the previous pandemic, and the use of personal protective equipment (PPE) This may decrease voice recognition accuracy Inadvertent teaching dietitian errors may occur 12/08/2024 Essential (primary) hypertension (ICD-10 - I10) Acute Concerns/Problem List: 12/08/2024 Hypogonadism labs, update other comprehensive labs including CBC with differential He gets therapeutic draws at [facility] echo upcoming 12/2024 PVC Coronary calcium [...] software and direct typing Please excuse inadvertent teaching dietitian or typing errors, or uncorrected word substitutions Although every attempt has been made by the provider to proofread this document, occasional misspellings and typographical errors may still be present Due to the previous pandemic, and the use of personal protective equipment (PPE) This may decrease voice recognition accuracy Inadvertent teaching dietitian errors may occur 12/08/2024 Annual physical exam (ICD-10 - Z00.00) Acute Concerns/Problem List: 12/08/2024 Hypogonadism labs, update other comprehensive labs including CBC with differential He gets therapeutic draws at [facility] echo upcoming 12/2024 PVC Coronary calcium [...] software and direct typing Please excuse inadvertent teaching dietitian or typing errors, or uncorrected word substitutions Although every attempt has been made by the provider to proofread this document, occasional misspellings and typographical errors may still be present Due to the previous pandemic, and the use of personal protective equipment (PPE) This may decrease voice recognition accuracy Inadvertent teaching dietitian errors may occur 01/25/2025 Essential (primary) hypertension (ICD-10 - I10) Acute Concerns/Problem List: 01/25/2025 Erythrocytosis, Followed by hematology He gets therapeutic draws at [facility] echo upcoming Otherwise unremarkable Coronary calcium [...] software and direct typing Please excuse inadvertent teaching dietitian or typing errors, or uncorrected word substitutions Although every attempt has been made by the provider to proofread this document, occasional misspellings and typographical errors may still be present Due to the previous pandemic, and the use of personal protective equipment (PPE) This may decrease voice recognition accuracy Inadvertent teaching dietitian errors may occuras 04/27/2025 Essential (primary) hypertension (ICD-10 - I10) Acute Concerns/Problem List: 01/25/2025 Continue Flonase Singulair and immunotherapy shots Continue Lunesta at bedtime, as needed lorazepam Erythrocytosis, Followed by hematology He gets therapeutic draws at [facility] echo upcoming Otherwise unremarkable Coronary calcium [...] software and direct typing Please excuse inadvertent teaching dietitian or typing errors, or uncorrected word substitutions Although every attempt has been made by the provider to proofread this document, occasional misspellings and typographical errors may still be present Due to the previous pandemic, and the use of personal protective equipment (PPE) This may decrease voice recognition accuracy Inadvertent teaching dietitian errors may occuras 04/27/2025 Testicular hypofunction (ICD-10 - E29.1) Acute Concerns/Problem List: 01/25/2025 Continue Flonase Singulair and immunotherapy shots Continue Lunesta at bedtime, as needed lorazepam Erythrocytosis, Followed by hematology He gets therapeutic draws at [facility] echo upcoming Otherwise unremarkable Coronary calcium [...] software and direct typing Please excuse inadvertent teaching dietitian or typing errors, or uncorrected word substitutions Although every attempt has been made by the provider to proofread this document, occasional misspellings and typographical errors may still be present Due to the previous pandemic, and the use of personal protective equipment (PPE) This may decrease voice recognition accuracy Inadvertent teaching dietitian errors may occuras 12/08/2024 Testicular hypofunction (ICD-10 - E29.1) Acute Concerns/Problem List: 12/08/2024 Hypogonadism labs, update other comprehensive labs including CBC with differential He gets therapeutic draws at [facility] echo upcoming 12/2024 PVC Coronary calcium [...] software and direct typing Please excuse inadvertent teaching dietitian or typing errors, or uncorrected word substitutions Although every attempt has been made by the provider to proofread this document, occasional misspellings and typographical errors may still be present Due to the previous pandemic, and the use of personal protective equipment (PPE) This may decrease voice recognition accuracy Inadvertent teaching dietitian errors may occur 01/25/2025 Testicular hypofunction (ICD-10 - E29.1) Acute Concerns/Problem List: 01/25/2025 Erythrocytosis, Followed by hematology He gets therapeutic draws at [facility] echo upcoming Otherwise unremarkable Coronary calcium [...] software and direct typing Please excuse inadvertent teaching dietitian or typing errors, or uncorrected word substitutions Although every attempt has been made by the provider to proofread this document, occasional misspellings and typographical errors may still be present Due to the previous pandemic, and the use of personal protective equipment (PPE) This may decrease voice recognition accuracy Inadvertent teaching dietitian errors may occuras 09/21/2024 Polycythemia vera (ICD-10 - D45) Most recent hemoglobin is downtrending He gets therapeutic draws at [facility] Will get updated comprehensive labs including [...] software and direct typing Please excuse inadvertent teaching dietitian or typing errors, or uncorrected word substitutions Although every attempt has been made by the provider to proofread this document, occasional misspellings and typographical errors may still be present Due to the previous pandemic, and the use of personal protective equipment (PPE) This may decrease voice recognition accuracy Inadvertent teaching dietitian errors may occur 09/21/2024 Obstructive sleep apnea (ICD-10 - G47.33) Most recent hemoglobin is downtrending He gets therapeutic draws at [facility] Will get updated comprehensive labs including [...] software and direct typing Please excuse inadvertent teaching dietitian or typing errors, or uncorrected word substitutions Although every attempt has been made by the provider to proofread this document, occasional misspellings and typographical errors may still be present Due to the previous pandemic, and the use of personal protective equipment (PPE) This may decrease voice recognition accuracy Inadvertent teaching dietitian errors may occur 12/08/2024 Polycythemia vera (ICD-10 - D45) Acute Concerns/Problem List: 12/08/2024 Hypogonadism labs, update other comprehensive labs including CBC with differential He gets therapeutic draws at [facility] echo upcoming 12/2024 PVC Coronary calcium [...] software and direct typing Please excuse inadvertent teaching dietitian or typing errors, or uncorrected word substitutions Although every attempt has been made by the provider to proofread this document, occasional misspellings and typographical errors may still be present Due to the previous pandemic, and the use of personal protective equipment (PPE) This may decrease voice recognition accuracy Inadvertent teaching dietitian errors may occur 04/27/2025 Polycythemia vera (ICD-10 - D45) Acute Concerns/Problem List: 01/25/2025 Continue Flonase Singulair and immunotherapy shots Continue Lunesta at bedtime, as needed lorazepam Erythrocytosis, Followed by hematology He gets therapeutic draws at [facility] echo upcoming Otherwise unremarkable Coronary calcium [...] software and direct typing Please excuse inadvertent teaching dietitian or typing errors, or uncorrected word substitutions Although every attempt has been made by the provider to proofread this document, occasional misspellings and typographical errors may still be present Due to the previous pandemic, and the use of personal protective equipment (PPE) This may decrease voice recognition accuracy Inadvertent teaching dietitian errors may occuras 01/25/2025 Polycythemia vera (ICD-10 - D45) Acute Concerns/Problem List: 01/25/2025 Erythrocytosis, Followed by hematology He gets therapeutic draws at [facility] echo upcoming Otherwise unremarkable Coronary calcium [...] software and direct typing Please excuse inadvertent teaching dietitian or typing errors, or uncorrected word substitutions Although every attempt has been made by the provider to proofread this document, occasional misspellings and typographical errors may still be present Due to the previous pandemic, and the use of personal protective equipment (PPE) This may decrease voice recognition accuracy Inadvertent teaching dietitian errors may occuras 04/27/2025 Obstructive sleep apnea (ICD-10 - G47.33) Acute Concerns/Problem List: 01/25/2025 Continue Flonase Singulair and immunotherapy shots Continue Lunesta at bedtime, as needed lorazepam Erythrocytosis, Followed by hematology He gets therapeutic draws at [facility] echo upcoming Otherwise unremarkable Coronary calcium [...] software and direct typing Please excuse inadvertent teaching dietitian or typing errors, or uncorrected word substitutions Although every attempt has been made by the provider to proofread this document, occasional misspellings and typographical errors may still be present Due to the previous pandemic, and the use of personal protective equipment (PPE) This may decrease voice recognition accuracy Inadvertent teaching dietitian errors may occuras 01/25/2025 Obstructive sleep apnea (ICD-10 - G47.33) Acute Concerns/Problem List: 01/25/2025 Erythrocytosis, Followed by hematology He gets therapeutic draws at [facility] echo upcoming Otherwise unremarkable Coronary calcium [...] software and direct typing Please excuse inadvertent teaching dietitian or typing errors, or uncorrected word substitutions Although every attempt has been made by the provider to proofread this document, occasional misspellings and typographical errors may still be present Due to the previous pandemic, and the use of personal protective equipment (PPE) This may decrease voice recognition accuracy Inadvertent teaching dietitian errors may occuras 12/08/2024 Obstructive sleep apnea (ICD-10 - G47.33) Acute Concerns/Problem List: 12/08/2024 Hypogonadism labs, update other comprehensive labs including CBC with differential He gets therapeutic draws at [facility] echo upcoming 12/2024 PVC Coronary calcium [...] software and direct typing Please excuse inadvertent teaching dietitian or typing errors, or uncorrected word substitutions Although every attempt has been made by the provider to proofread this document, occasional misspellings and typographical errors may still be present Due to the previous pandemic, and the use of personal protective equipment (PPE) This may decrease voice recognition accuracy Inadvertent teaching dietitian errors may occur 09/21/2024 Right bundle branch block (RBBB) (ICD-10 - I45.10) Most recent hemoglobin is downtrending He gets therapeutic draws at [facility] Will get updated comprehensive labs including [...] software and direct typing Please excuse inadvertent teaching dietitian or typing errors, or uncorrected word substitutions Although every attempt has been made by the provider to proofread this document, occasional misspellings and typographical errors may still be present Due to the previous pandemic, and the use of personal protective equipment (PPE) This may decrease voice recognition accuracy Inadvertent teaching dietitian errors may occur 12/08/2024 Right bundle branch block (RBBB) (ICD-10 - I45.10) Acute Concerns/Problem List: 12/08/2024 Hypogonadism labs, update other comprehensive labs including CBC with differential He gets therapeutic draws at [facility] echo upcoming 12/2024 PVC Coronary calcium [...] software and direct typing Please excuse inadvertent teaching dietitian or typing errors, or uncorrected word substitutions Although every attempt has been made by the provider to proofread this document, occasional misspellings and typographical errors may still be present Due to the previous pandemic, and the use of personal protective equipment (PPE) This may decrease voice recognition accuracy Inadvertent teaching dietitian errors may occur 01/25/2025 LBBB (left bundle branch block) (ICD-10 - I44.7) Acute Concerns/Problem List: 01/25/2025 Erythrocytosis, Followed by hematology He gets therapeutic draws at [facility] echo upcoming Otherwise unremarkable Coronary calcium [...] software and direct typing Please excuse inadvertent teaching dietitian or typing errors, or uncorrected word substitutions Although every attempt has been made by the provider to proofread this document, occasional misspellings and typographical errors may still be present Due to the previous pandemic, and the use of personal protective equipment (PPE) This may decrease voice recognition accuracy Inadvertent teaching dietitian errors may occuras 04/27/2025 LBBB (left bundle branch block) (ICD-10 - I44.7) Acute Concerns/Problem List: 01/25/2025 Continue Flonase Singulair and immunotherapy shots Continue Lunesta at bedtime, as needed lorazepam Erythrocytosis, Followed by hematology He gets therapeutic draws at [facility] echo upcoming Otherwise unremarkable Coronary calcium [...] software and direct typing Please excuse inadvertent teaching dietitian or typing errors, or uncorrected word substitutions Although every attempt has been made by the provider to proofread this document, occasional misspellings and typographical errors may still be present Due to the previous pandemic, and the use of personal protective equipment (PPE) This may decrease voice recognition accuracy Inadvertent teaching dietitian errors may occuras 04/27/2025 Encounter for examination of blood pressure without abnormal findings (ICD-10 - Z01.30) Acute Concerns/Problem List: 01/25/2025 Continue Flonase Singulair and immunotherapy shots Continue Lunesta at bedtime, as needed lorazepam Erythrocytosis, Followed by hematology He gets therapeutic draws at [facility] echo upcoming Otherwise unremarkable Coronary calcium [...] software and direct typing Please excuse inadvertent teaching dietitian or typing errors, or uncorrected word substitutions Although every attempt has been made by the provider to proofread this document, occasional misspellings and typographical errors may still be present Due to the previous pandemic, and the use of personal protective equipment (PPE) This may decrease voice recognition accuracy Inadvertent teaching dietitian errors may occuras 01/25/2025 Asymptomatic microscopic hematuria (ICD-10 - R31.21) Acute Concerns/Problem List: 01/25/2025 Erythrocytosis, Followed by hematology He gets therapeutic draws at [facility] echo upcoming Otherwise unremarkable Coronary calcium [...] software and direct typing Please excuse inadvertent teaching dietitian or typing errors, or uncorrected word substitutions Although every attempt has been made by the provider to proofread this document, occasional misspellings and typographical errors may still be present Due to the previous pandemic, and the use of personal protective equipment (PPE) This may decrease voice recognition accuracy Inadvertent teaching dietitian errors may occuras Plan Of Treatment Pending Test Test Name Order Date Lipid Panel 04/26/2020 Comp. Metabolic Panel (14) 04/26/2020 PSA Total+ Free 04/26/2020 CBC 04/26/2020 Urinalysis 04/26/2020 EKG 04/01/2018 EKG 11/07/2020 CBC (COMPLETE BLOOD COUNT) 09/02/2018 COMPREHENSIVE METABOLIC PANEL 09/02/2018 LIPID PANEL 09/02/2018 PSA, SCREEN 10/20/2019 PSA, SCREEN 09/02/2018 PSA, SCREEN 09/21/2024 TESTOSTERONE, FREE AND TOTAL (MALES >15 YRS OLD) 03/24/2023 URINALYSIS, COMPLETE 09/02/2018 Comprehensive Metabolic Panel 04/01/2018 Lipid Panel 04/01/2018 Cologuard 04/21/2019 Cologuard 08/26/2022 LIPID PANEL, STANDARD 02/04/2022 LIPID PANEL, STANDARD 09/21/2024 LIPID PANEL, STANDARD 08/26/2022 LIPID PANEL, STANDARD 08/17/2023 LIPID PANEL, STANDARD 03/24/2023 LIPID PANEL, STANDARD 06/20/2021 COMPREHENSIVE METABOLIC PANEL 06/20/2021 COMPREHENSIVE METABOLIC PANEL 08/17/2023 COMPREHENSIVE METABOLIC PANEL 09/21/2024 COMPREHENSIVE METABOLIC PANEL 03/24/2023 COMPREHENSIVE METABOLIC PANEL 08/26/2022 COMPREHENSIVE METABOLIC PANEL 02/04/2022 CBC (INCLUDES DIFF/PLT) 02/04/2022 CBC (INCLUDES DIFF/PLT) 08/26/2022 CBC (INCLUDES DIFF/PLT) 03/24/2023 CBC (INCLUDES DIFF/PLT) 09/21/2024 CBC (INCLUDES DIFF/PLT) 05/26/2023 CBC (INCLUDES DIFF/PLT) 10/19/2023 CBC (INCLUDES DIFF/PLT) 06/20/2021 URINALYSIS, COMPLETE 06/20/2021 URINALYSIS, COMPLETE 09/21/2024 URINALYSIS, COMPLETE 03/24/2023 URINALYSIS, COMPLETE 02/04/2022 URINALYSIS, COMPLETE W/REFLEX TO [...] Details Provider Name:ESTELITA FRANCO, 08/15/2025 03:30:00 PM, [address] [place] [address], [place], [address], Insurance Providers Payer Name Payer Address Payer Phone Subscriber Number Group Number Insured Name Patient Relationship to Insured Coverage Start Date Coverage End Date [facility] [address] [place] [address] [phone] [id number] DANIELLE LOUIS Self - patient is the [...]
== END 2025-06-30 08:58 | disposition home or self-care (01) ==
LOC: HO.BBR 08:57
PROVIDERS: PCP Internal Medicine; Visit Provider Internal Medicine
DX: D45 Polycythemia vera (principal)
CPT/HCPCS: 85018; 99195

== ENCOUNTER 2025-07-17 15:34 | Outpatient (AMB) | payer BC, SELFPAY ==
--- OUTSIDE RECORDS SUMMARY | 2022-07-07 23:00 | XMS_ITS | Encounter Summary ---
Author Organization [facility] Address [address] [facility] [address] [place] [address] Phone Care Team Providers Care Ceramic Coater Name Role Phone Unavailable Primary Care Provider Unavailabl e Encounter Details Date Type Department Care Team (Late st Contact Info) Description 07/08/2022 Hospital Encounter [facility] [address] [place] [phone] Howard Quintana MD [address] [place] [phone] [email or web address] Social History Tobacco Use Types Packs/Day Years [...] It is not the complete legal health record.[facility]
--- OUTSIDE RECORDS SUMMARY | 2024-02-24 10:30 | XMS_ITS ---
Author Organization [facility] Address [address] [place] [address] Care Team Providers Care Seed Buyer Name Role Phone KAMALA ZIEGLER Primary Care Provider ESTELITA FRANCO Unavailable [phone] LEYLA HAQUE Unavailable [phone] Medications Medication SIG (Take, Route, Frequency, Duration) Notes Start Date End Date Status Aspir-81 81 MG 1 tablet Orally Once a day; Duration: 30 day(s) Active Tamsulosin HCl 0.4 MG TAKE 1 CAPSULE BY MOUTH EVERY DAY FOR 90 DAYS; Duration: 90 Active Fish Oil 500 MG 1 capsule Orally Twi ce a day; Duration: 30 day(s) Active Montelukast Sodium 10 MG TAKE 1 TABLET B Y MOUTH EVERY DAY IN THE EVENING; Duration: 90 Active Tadalafil 20 MG TAKE 1 TABLET BY GEORGETTE TH ONCE A DAY NEEDED FOR SEX X 30 DAYS; Duration: 30 Active Gabapentin 600 MG 1 tablet Orally Once a day Active Multi For Him - as directed Orally Active Fluvastatin Sodium ER 80 MG TAKE 1 TABLE T BY MOUTH EVERY DAY IN THE EVENING Orally Once a day; Duration: 90 days Active Losartan Potassium 50 MG 1 tablet Orally Once a day; Duration: 90 days Active Terbinafine Active Pantoprazole Sodium 40 MG TAKE 1 TABLET BY MOUTH EVERY DAY; Duration: 90 Active valACYclovir HCl 1 GM TAKE 1 TABLET BY M OUTH EVERY DAY; Duration: 90 Active LORazepam 0.5 MG 1 tablet Orally Once a day prn; Duration: 15 days 01/04/2024 Active Celecoxib 200 MG TAKE ONE CAPSULE BY MOUTH DAILY WITH FOOD AND WATER; Duration: 90 Active hydrOXYzine HCl 50 MG TAKE 1 TABLET BY M OUTH EVERY DAY NEEDED FOR 30 DAYS; Duration: 90 Active Eszopiclone 2 MG TAKE 1 TABLET BY GEORGETTE TH IMMEDIATELY BEFORE BEDTIME ORALLY; Duration: 87 10/26/2023 Active Encounters Encounter Location Date Provider Diagnosis [facility] [address] [facility] [address] 02/24/2024 LEYLA HAQUE Plan Of Treatment Next Appt Details Provider Name:ESTELITA FRANCO, 08/15/2025 03:30:00 PM, [address] [facility], [address], [place], [address], Progress Notes * DANIELLE LOUIS IIIDOB:1960 (64 yo M)Acc No.[id number]:02/24/2024 Progress Notes Patient: DANIELLE MERAZ III Provider: Elliot BAPTISTE PA-C :1960 A ge:63 Y S ex:Male Date:02/24/2024 Address:[address] [place] [address], [facility], [id number] Pcp:KAMALA ZIEGLER Subjective: * Chief Complaints: * * Medical History: * Medications: T aking Terbinafine , Taking Multi For Him - Tablet as directed Orally , Taking Fluvastatin Sodium ER 80 MG Tablet Extended Release 24 Hour TAKE 1 TABLET BY MOUTH EVERY DAY IN THE EVENING Orally Once a day , Taking Gabapentin 600 MG Tablet 1 tablet Orally Once a day , Taking Aspir-81 81 MG Tablet Delayed Release 1 tablet Orally Once a day , Taking Fish Oil 500 MG Capsule 1 capsule Orally Twice a day , Taking Montelukast Sodium 10 MG Tablet TAKE 1 TABLET BY MOUTH EVERY DAY IN THE EVENING , Taking Tamsulosin HCl 0.4 MG Capsule TAKE 1 CAPSULE BY MOUTH EVERY DAY FOR 90 DAYS , Taking Tadalafil 20 MG Tablet TAKE 1 TABLET BY MOUTH ONCE A DAY NEEDED FOR SEX X 30 DAYS , Taking Eszopiclone 2 MG Tablet TAKE 1 TABLET BY MOUTH IMMEDIATELY BEFORE BEDTIME ORALLY , Taking Celecoxib 200 MG Capsule TAKE ONE CAPSULE BY MOUTH DAILY WITH FOOD AND WATER , Taking hydrOXYzine HCl 50 MG Tablet TAKE 1 TABLET BY MOUTH EVERY DAY NEEDED FOR 30 DAYS , Taking valACYclovir HCl 1 GM Tablet TAKE 1 TABLET BY MOUTH EVERY DAY , Taking LORazepam 0.5 MG Tablet 1 tablet Orally Once a day prn , Taking Pantoprazole Sodium 40 MG Tablet Delayed Release TAKE 1 TABLET BY MOUTH EVERY DAY , Taking Losartan Potassium 50 MG Tablet 1 tablet Orally Once a day Objective: * Vitals: Assessment: Plan: * Treatment: * Images: Billing Information: * Visit Code: * Procedure Codes: Care Plan Details* * Electronic signature of TAYLOR HAQUE PA-C on 07/17/2025 at 04:42 PM EST Sign off status: Pending * Provider: Elliot BAPTISTE PA-C Date: 0 02/24/2024 Generated for Hailee bender/Layla/Olivia on: 1 09/16/2024 04:42 PM EST
--- OUTSIDE RECORDS SUMMARY | 2024-02-25 10:15 | XMS_ITS ---
Author Organization [facility] [address] Address [address] [place] [address] Care Team Providers Care Molder Foam Rubber Name Role Phone KAMALA ZIEGLER Primary Care Provider [phone] JOAN ESTELITA Unavailable [phone] LEYLA HAQUE Unavailable [phone] Encounters Encounter Location Date Provider Diagnosis [facility] [address] [place] [address] 02/25/2024 LEYLA HAQUE Plan Of Treatment Next Appt Details Provider Name:ESTELITA FRANCO, 08/15/2025 03:30:00 PM, [address] [facility] [address], [facility] [address], [place], [address], Progress Notes * DANIELLE LOUIS IIIDOB:1960 (64 yo M)Acc No.[id number]:02/25/2024 Progress Notes Patient: Rajan RAMOS DANIELLE GOOD Provider: Elliot BAPTISTE PA-C :1960 A ge:63 Y S ex:Male Date:02/25/2024 Address[address] [place], [id number] Pcp:KAMALA ZIEGLER Subjective: * Chief Complaints: * * Medical History: Objective: * Vitals: Assessment: Plan: * Treatment: * Images: Billing Information: * Visit Code: * Procedure Codes: Care Plan Details* * Electronic signature of TAYLOR HAQUE PA-C on 07/17/2025 at 04:43 PM EST Sign off status: Pending * Provider: Elliot BAPTISTE PA-C Date: 0 02/25/2024 Generated for Hailee bender/Layla/Olivia on: 1 09/16/2024 04:43 PM EST
--- OUTSIDE RECORDS SUMMARY | 2025-07-17 16:43 | XMS_ITS | Clinical Summary ---
Author Organization [facility] Address [address] [address] Phone Care Team Providers Care Meteorology Instructor Name Role Phone Pcp, Not Required Primary [...] by mouth every evening. 3 Active omega 0-ATV-UHW-fish oil (FISH OIL) 60-90-500 mg capsule 1 [...] this topic Medical Devices Implanted Type Area Diesel Technology Instructor Device Identifier Shelf Expiration Date Model / Serial / Lot Prosthetic Joint Prosthetic Joint Knee Dental Insurance BLUE CROSS OUT OF STATE PPO BLUE [employer]OSS OUT OF STATE PPO BLUE [employer]OSS OUT OF STATE PPO BLUE [employer]OSS OUT OF STATE PPO BL[employer]OSS OUT OF STATE PPO BLUE [employer]OSS OUT OF STATE PPO Care Teams Meteorology Instructor Relationship Specialty Start Date End Date Pcp, Not Required [address] [place] [address] PCP - General 11/17/22 Additional Source Comments The information contained in this document represents components of the legal health record. It is not the complete legal health record.[facility]
--- OUTSIDE RECORDS SUMMARY | 2025-07-17 16:43 | XMS_ITS | Patient Health Record ---
Author Organization [facility] [address] Address [address] [place] [address] Care Team Providers Care Network Solutions Architect Name Role Phone ZIEGLER, YOMICHAVA Primary Care Provider [phone] ESTELITA FRANCO Unavailable [phone] Allergies No Known Allergies Results Component Value Reference Range Notes ERYTHROPOIETIN Reviewed date:01/11/2025 08:31:07 AM Interpretation: Performing Lab: Notes/Report: Erythropoietin 14.9 2.6-18.5 mIU/mL Test performed at [facility], [address] [place] [address] Brenda Becerra MD, PhD - Passenger Car Cleaning Supervisor SEX HORMONE BINDING GLOBULIN Reviewed date:01/17/2025 11:20:20 [...] 08:24:51 AM Interpretation: Performing Lab: Notes/Report: Specific [place] Urine 1.031 1.003-1.030 pH, Urine 6.0 5.0-8.0 [...] Immature Granulocytes Absolute 0.01 0.00-0.03 K/mcL Prostate-Specific Ag-[id number] Reviewed date:11/26/2024 08:46:36 AM Interpretation: Performing Lab:[facility] [place], [address] [place] [address], [place], Phone - [phone], Director - Rebecca Notes/Report: Prostate Specific Ag 0.4 0.0-4.0 ng/mL Itzel ECLIA methodology. . According to the [place] [employer], Serum PSA should decrease and [...] the presence or absence of malignant disease. CALRETICULIN MUTATION ANALYS IS Reviewed date:01/09/2025 02:23:21 PM Interpretation: Performing Lab: Notes/Report: Performed at: 01 - [facility] [address] [facility], [place] [id number] .Net Programmer: Ashkan Quiñones [facility], Phone: [phone] Performed at: - [facility] [address] [facility] [place] [id number] .Net Programmer: Ashkan Quiñones [facility], Phone: [phone] Calreticulin (CALR) Mutation Detection Result NEGATIVE No [...] developed and its performance characteristics determined by [employer]. It has not been cleared or approved by the Food and Drug Administration. The FDA has determined that such clearance or approval is not necessary. References Note 1. Jos Plata et al. (2013) Somatic mutations of calreticulin in myeloproliferative neoplasms. [place]l. J. Med. 369:5725-5595. 2. Analilia Minaya et al. (2013) Somatic CALR mutations in myeloproliferative neoplasms with nonmutated JAK2. [place]l. J. Med. 369:4673-8021. Director Review: Technical Component performed at [facility] Professional Component performed by: Curly Schaeffer, PhD, [facility] Director, Molecular Oncology [facility] [id number], [id number] [id number] RETICULOCYTE COUNT Reviewed date:01/09/2025 02:23:21 PM Interpretation: [...] M OUT EVERY DAY; Duration: 90 Active Losartan Potassium 100 MG 1 tablet Orall y Once a day; Duration: 90 days Active Fluvastatin Sodium ER 80 MG TAKE 1 TABLET BY MOUTH EVERY DAY IN THE EVENING; Duration: 90 Active amLODIPine Besylate 10 MG TAKE 1 [...] HCl 0.1 MG TAKE 1 TABLET BY [facility] TWICE A DAY FOR 90 DAYS; Duration: [...] W/U Status Risk Notes Problem Polycythemia vera (579474377) Polycythemia vera (D45) Active confirmed Problem Testicular hypofunction (033066121) Testicular hypofunction (E29.1) Active confirmed Problem Vitamin D deficiency (64365361) Vitamin D deficiency, unspecified (E55.9) Active confirmed Problem Hyperlipidemia (58457846) Hyperlipidemia, unspecified (E78.5) Active confirmed Problem Primary insomnia (3655796) Primary insomnia (F51.01) Active confirmed Problem Insomnia (087151487) Other insomnia (G47.09) Active confirmed Problem Essential hypertension (19358893) Essential (primary) hypertension (I10) Active confirmed Problem Allergic rhinitis (14529038) Allergic rhinitis, unspecified (J30.9) Active confirmed Problem Chronic rhinitis (95962171) Chronic rhinitis (J31.0) Active confirmed Problem Chronic sinusitis (03675314) Chronic sinusitis, unspecified (J32.9) Active confirmed Problem Adult health examination (793734314) Encounter for general adult medical examination without abnormal findings (Z00.00) Active confirmed Problem Screening for malignant neoplasm of prostate (308914013) Encounter for screening for malignant neoplasm of prostate (Z12.5) Active confirmed Problem Screening for malignant neoplasm of skin (858885045) Encounter for screening for malignant neoplasm of skin (Z12.83) Active confirmed Problem Lipid screening (081538105) Encounter for screening for lipoid disorders (Z13.220) Active confirmed Problem Adult health examination (029255343) Adult general medical exam (Z00.00) Active confirmed Problem Vitamin D deficiency (23235678) Vitamin D deficiency (E55.9) Active confirmed Problem Male hypogonadism (01515283) Hypogonadism male (E29.1) Active confirmed Problem Diabetes mellitus screening (119946808) Diabetes mellitus screening (Z13.1) Active confirmed Problem Obstructive sleep apnea (70263789) Obstructive sleep apnea (G47.33) Active confirmed Problem Endocrine/metaboli c screening (635548732) Encounter for screening for endocrine disorder (Z13.29) Active confirmed Problem Screening for malignant neoplasm of prostate (109899097) Encounter for prostate cancer screening (Z12.5) Active confirmed Problem Left bundle branch block (06063718) LBBB (left bundle branch block) (I44.7) Active confirmed Problem Right bundle branch block (12111425) Right bundle branch block (RBBB) (I45.10) Active confirmed Vital Signs Heart Rate 83 /min 04/27/2025 Oximetry 97 % 04/27/2025 Blood pressure diastolic 80 mm Hg 04/27/2025 Height 79 in 04/27/2025 Blood pressure systolic 130 mm Hg 04/27/2025 Weight 281 lbs 04/27/2025 BMI 31.65 kg/m2 04/27/2025 Encounters Encounter Location Date Provider Diagnosis [facility] [address] [place] [id number] 09/21/2024 ESTELITA FRANCO Essential (primary) hypertension I10 ; Testicular hypofunction E29.1 ; Polycythemia vera D45 ; Obstructive sleep apnea G47.33 and Right bundle branch block (RBBB) I45.10 [facility] [address] [address] 12/08/2024 ESTELITA BORHOT Essential (primary) hypertension I10 ; Annual physical exam Z00.00 ; Testicular hypofunction E29.1 ; Polycythemia vera D45 ; Obstructive sleep apnea G47.33 and Right bundle branch block (RBBB) I45.10 [facility] [address] [address] 01/25/2025 ESTELITA BORHOT Essential (primary) hypertension I10 ; Testicular hypofunction E29.1 ; Polycythemia vera D45 ; Obstructive sleep apnea G47.33 ; LBBB (left bundle branch block) I44.7 and Asymptomatic microscopic hematuria R31.21 [facility] [address] [address] 04/27/2025 ESTELITA BORHOT Essential (primary) hypertension I10 ; Testicular hypofunction E29.1 ; Polycythemia vera D45 ; Obstructive sleep apnea G47.33 ; LBBB (left bundle branch block) I44.7 and Encounter for examination of blood pressure without abnormal findings Z01.30 [facility] [address] 07/25/2024 KAMALA ZIEGLER [facility] [address] [facility] [address] 10/07/2024 ESTELITA SHADHOT [facility] [address] [place] [address] 10/24/2024 ESTELITA BORHOT [facility] [address] 10/24/2024 ESTELITA BORHOT [facility] [address] [address] 12/19/2024 ESTELITA BORHOT [facility] [address] 12/19/2024 ESTELITA BORHOT [facility] [address] [place] [address] 12/19/2024 KAMALA BISHOPAN [facility] [address] [address] 12/23/2024 ESTELITA FRANCO [facility] [address] [facility] [address] [place] [address] 04/20/2025 SETELITA FRANCO Assessments Encounter Date Diagnosis (ICD Code) Assessment Notes Treatment Notes Treatment Clinical Notes Section Notes 09/21/2024 Testicular hypofunction (ICD-10 - E29.1) Most recent hemoglobin is downtrending He gets therapeutic draws at [facility] Will get updated comprehensive labs including CBC [...] software and direct typing Please excuse inadvertent professor of journalism or typing errors, or uncorrected word substitutions Although every attempt has been made by the provider to proofread this document, occasional misspellings and typographical errors may still be present Due to the previous pandemic, and the use of personal protective equipment (PPE) This may decrease voice recognition accuracy Inadvertent professor of journalism errors may occur 09/21/2024 Essential (primary) hypertension (ICD-10 - I10) Most recent hemoglobin is downtrending He gets therapeutic draws at [facility] Will get updated comprehensive labs including CBC [...] software and direct typing Please excuse inadvertent professor of journalism or typing errors, or uncorrected word substitutions Although every attempt has been made by the provider to proofread this document, occasional misspellings and typographical errors may still be present Due to the previous pandemic, and the use of personal protective equipment (PPE) This may decrease voice recognition accuracy Inadvertent professor of journalism errors may occur 12/08/2024 Essential (primary) hypertension (ICD-10 - I10) Acute Concerns/Problem List: 12/08/2024 Hypogonadism labs, update other comprehensive labs including CBC with differential He gets therapeutic draws at [facility] echo upcoming 12/[address] [...] software and direct typing Please excuse inadvertent professor of journalism or typing errors, or uncorrected word substitutions Although every attempt has been made by the provider to proofread this document, occasional misspellings and typographical errors may still be present Due to the previous pandemic, and the use of personal protective equipment (PPE) This may decrease voice recognition accuracy Inadvertent professor of journalism errors may occur 12/08/2024 Annual physical exam (ICD-10 - Z00.00) Acute Concerns/Problem List: 12/08/2024 Hypogonadism labs, update other comprehensive labs including CBC with differential He gets therapeutic draws at [facility] echo upcoming 12/[address] [...] software and direct typing Please excuse inadvertent professor of journalism or typing errors, or uncorrected word substitutions Although every attempt has been made by the provider to proofread this document, occasional misspellings and typographical errors may still be present Due to the previous pandemic, and the use of personal protective equipment (PPE) This may decrease voice recognition accuracy Inadvertent professor of journalism errors may occur 01/25/2025 Essential (primary) hypertension (ICD-10 - I10) Acute Concerns/Problem List: 01/25/2025 Erythrocytosis, Followed by hematology He gets therapeutic draws at [facility] echo upcoming Otherwise unremarkable Coronary calcium CT [...] software and direct typing Please excuse inadvertent professor of journalism or typing errors, or uncorrected word substitutions Although every attempt has been made by the provider to proofread this document, occasional misspellings and typographical errors may still be present Due to the previous pandemic, and the use of personal protective equipment (PPE) This may decrease voice recognition accuracy Inadvertent professor of journalism errors may occuras 04/27/2025 Essential (primary) hypertension (ICD-10 - I10) Acute Concerns/Problem List: 01/25/2025 Continue Flonase Singulair and immunotherapy shots Continue Lunesta at bedtime, as needed lorazepam Erythrocytosis, Followed by hematology He gets therapeutic draws at [facility] echo upcoming Otherwise unremarkable Coronary calcium CT [...] software and direct typing Please excuse inadvertent professor of journalism or typing errors, or uncorrected word substitutions Although every attempt has been made by the provider to proofread this document, occasional misspellings and typographical errors may still be present Due to the previous pandemic, and the use of personal protective equipment (PPE) This may decrease voice recognition accuracy Inadvertent professor of journalism errors may occuras 04/27/2025 Testicular hypofunction (ICD-10 - E29.1) Acute Concerns/Problem List: 01/25/2025 Continue Flonase Singulair and immunotherapy shots Continue Lunesta at bedtime, as needed lorazepam Erythrocytosis, Followed by hematology He gets therapeutic draws at [facility] echo upcoming Otherwise unremarkable Coronary calcium CT [...] software and direct typing Please excuse inadvertent professor of journalism or typing errors, or uncorrected word substitutions Although every attempt has been made by the provider to proofread this document, occasional misspellings and typographical errors may still be present Due to the previous pandemic, and the use of personal protective equipment (PPE) This may decrease voice recognition accuracy Inadvertent professor of journalism errors may occuras 12/08/2024 Testicular hypofunction (ICD-10 - E29.1) Acute Concerns/Problem List: 12/08/2024 Hypogonadism labs, update other comprehensive labs including CBC with differential He gets therapeutic draws at [facility] echo upcoming 12/[address] [...] software and direct typing Please excuse inadvertent professor of journalism or typing errors, or uncorrected word substitutions Although every attempt has been made by the provider to proofread this document, occasional misspellings and typographical errors may still be present Due to the previous pandemic, and the use of personal protective equipment (PPE) This may decrease voice recognition accuracy Inadvertent professor of journalism errors may occur 01/25/2025 Testicular hypofunction (ICD-10 - E29.1) Acute Concerns/Problem List: 01/25/2025 Erythrocytosis, Followed by hematology He gets therapeutic draws at [facility] echo upcoming Otherwise unremarkable Coronary calcium CT [...] software and direct typing Please excuse inadvertent professor of journalism or typing errors, or uncorrected word substitutions Although every attempt has been made by the provider to proofread this document, occasional misspellings and typographical errors may still be present Due to the previous pandemic, and the use of personal protective equipment (PPE) This may decrease voice recognition accuracy Inadvertent professor of journalism errors may occuras 09/21/2024 Polycythemia vera (ICD-10 - D45) Most recent hemoglobin is downtrending He gets therapeutic draws at [facility] Will get updated comprehensive labs including CBC [...] software and direct typing Please excuse inadvertent professor of journalism or typing errors, or uncorrected word substitutions Although every attempt has been made by the provider to proofread this document, occasional misspellings and typographical errors may still be present Due to the previous pandemic, and the use of personal protective equipment (PPE) This may decrease voice recognition accuracy Inadvertent professor of journalism errors may occur 09/21/2024 Obstructive sleep apnea (ICD-10 - G47.33) Most recent hemoglobin is downtrending He gets therapeutic draws at [facility] Will get updated comprehensive labs including CBC [...] software and direct typing Please excuse inadvertent professor of journalism or typing errors, or uncorrected word substitutions Although every attempt has been made by the provider to proofread this document, occasional misspellings and typographical errors may still be present Due to the previous pandemic, and the use of personal protective equipment (PPE) This may decrease voice recognition accuracy Inadvertent professor of journalism errors may occur 12/08/2024 Polycythemia vera (ICD-10 - D45) Acute Concerns/Problem List: 12/08/2024 Hypogonadism labs, update other comprehensive labs including CBC with differential He gets therapeutic draws at [facility] echo upcoming 12/[address] [...] software and direct typing Please excuse inadvertent professor of journalism or typing errors, or uncorrected word substitutions Although every attempt has been made by the provider to proofread this document, occasional misspellings and typographical errors may still be present Due to the previous pandemic, and the use of personal protective equipment (PPE) This may decrease voice recognition accuracy Inadvertent professor of journalism errors may occur 04/27/2025 Polycythemia vera (ICD-10 - D45) Acute Concerns/Problem List: 01/25/2025 Continue Flonase Singulair and immunotherapy shots Continue Lunesta at bedtime, as needed lorazepam Erythrocytosis, Followed by hematology He gets therapeutic draws at [facility] echo upcoming Otherwise unremarkable Coronary calcium CT [...] software and direct typing Please excuse inadvertent professor of journalism or typing errors, or uncorrected word substitutions Although every attempt has been made by the provider to proofread this document, occasional misspellings and typographical errors may still be present Due to the previous pandemic, and the use of personal protective equipment (PPE) This may decrease voice recognition accuracy Inadvertent professor of journalism errors may occuras 01/25/2025 Polycythemia vera (ICD-10 - D45) Acute Concerns/Problem List: 01/25/2025 Erythrocytosis, Followed by hematology He gets therapeutic draws at [facility] echo upcoming Otherwise unremarkable Coronary calcium CT [...] software and direct typing Please excuse inadvertent professor of journalism or typing errors, or uncorrected word substitutions Although every attempt has been made by the provider to proofread this document, occasional misspellings and typographical errors may still be present Due to the previous pandemic, and the use of personal protective equipment (PPE) This may decrease voice recognition accuracy Inadvertent professor of journalism errors may occuras 01/25/2025 Obstructive sleep apnea (ICD-10 - G47.33) Acute Concerns/Problem List: 01/25/2025 Erythrocytosis, Followed by hematology He gets therapeutic draws at [facility] echo upcoming Otherwise unremarkable Coronary calcium CT [...] software and direct typing Please excuse inadvertent professor of journalism or typing errors, or uncorrected word substitutions Although every attempt has been made by the provider to proofread this document, occasional misspellings and typographical errors may still be present Due to the previous pandemic, and the use of personal protective equipment (PPE) This may decrease voice recognition accuracy Inadvertent professor of journalism errors may occuras 04/27/2025 Obstructive sleep apnea (ICD-10 - G47.33) Acute Concerns/Problem List: 01/25/2025 Continue Flonase Singulair and immunotherapy shots Continue Lunesta at bedtime, as needed lorazepam Erythrocytosis, Followed by hematology He gets therapeutic draws at [facility] echo upcoming Otherwise unremarkable Coronary calcium CT [...] software and direct typing Please excuse inadvertent professor of journalism or typing errors, or uncorrected word substitutions Although every attempt has been made by the provider to proofread this document, occasional misspellings and typographical errors may still be present Due to the previous pandemic, and the use of personal protective equipment (PPE) This may decrease voice recognition accuracy Inadvertent professor of journalism errors may occuras 12/08/2024 Obstructive sleep apnea (ICD-10 - G47.33) Acute Concerns/Problem List: 12/08/2024 Hypogonadism labs, update other comprehensive labs including CBC with differential He gets therapeutic draws at [facility] echo upcoming 12/[address] [...] software and direct typing Please excuse inadvertent professor of journalism or typing errors, or uncorrected word substitutions Although every attempt has been made by the provider to proofread this document, occasional misspellings and typographical errors may still be present Due to the previous pandemic, and the use of personal protective equipment (PPE) This may decrease voice recognition accuracy Inadvertent professor of journalism errors may occur 09/21/2024 Right bundle branch block (RBBB) (ICD-10 - I45.10) Most recent hemoglobin is downtrending He gets therapeutic draws at [facility] Will get updated comprehensive labs including CBC [...] software and direct typing Please excuse inadvertent professor of journalism or typing errors, or uncorrected word substitutions Although every attempt has been made by the provider to proofread this document, occasional misspellings and typographical errors may still be present Due to the previous pandemic, and the use of personal protective equipment (PPE) This may decrease voice recognition accuracy Inadvertent professor of journalism errors may occur 12/08/2024 Right bundle branch block (RBBB) (ICD-10 - I45.10) Acute Concerns/Problem List: 12/08/2024 Hypogonadism labs, update other comprehensive labs including CBC with differential He gets therapeutic draws at [facility] echo upcoming 12/[address] [...] software and direct typing Please excuse inadvertent professor of journalism or typing errors, or uncorrected word substitutions Although every attempt has been made by the provider to proofread this document, occasional misspellings and typographical errors may still be present Due to the previous pandemic, and the use of personal protective equipment (PPE) This may decrease voice recognition accuracy Inadvertent professor of journalism errors may occur 04/27/2025 LBBB (left bundle branch block) (ICD-10 - I44.7) Acute Concerns/Problem List: 01/25/2025 Continue Flonase Singulair and immunotherapy shots Continue Lunesta at bedtime, as needed lorazepam Erythrocytosis, Followed by hematology He gets therapeutic draws at [facility] echo upcoming Otherwise unremarkable Coronary calcium CT [...] software and direct typing Please excuse inadvertent professor of journalism or typing errors, or uncorrected word substitutions Although every attempt has been made by the provider to proofread this document, occasional misspellings and typographical errors may still be present Due to the previous pandemic, and the use of personal protective equipment (PPE) This may decrease voice recognition accuracy Inadvertent professor of journalism errors may occuras 01/25/2025 LBBB (left bundle branch block) (ICD-10 - I44.7) Acute Concerns/Problem List: 01/25/2025 Erythrocytosis, Followed by hematology He gets therapeutic draws at [facility] echo upcoming Otherwise unremarkable Coronary calcium CT [...] software and direct typing Please excuse inadvertent professor of journalism or typing errors, or uncorrected word substitutions Although every attempt has been made by the provider to proofread this document, occasional misspellings and typographical errors may still be present Due to the previous pandemic, and the use of personal protective equipment (PPE) This may decrease voice recognition accuracy Inadvertent professor of journalism errors may occuras 01/25/2025 Asymptomatic microscopic hematuria (ICD-10 - R31.21) Acute Concerns/Problem List: 01/25/2025 Erythrocytosis, Followed by hematology He gets therapeutic draws at [facility] echo upcoming Otherwise unremarkable Coronary calcium CT [...] software and direct typing Please excuse inadvertent professor of journalism or typing errors, or uncorrected word substitutions Although every attempt has been made by the provider to proofread this document, occasional misspellings and typographical errors may still be present Due to the previous pandemic, and the use of personal protective equipment (PPE) This may decrease voice recognition accuracy Inadvertent professor of journalism errors may occuras 04/27/2025 Encounter for examination of blood pressure without abnormal findings (ICD-10 - Z01.30) Acute Concerns/Problem List: 01/25/2025 Continue Flonase Singulair and immunotherapy shots Continue Lunesta at bedtime, as needed lorazepam Erythrocytosis, Followed by hematology He gets therapeutic draws at [facility] echo upcoming Otherwise unremarkable Coronary calcium CT [...] software and direct typing Please excuse inadvertent professor of journalism or typing errors, or uncorrected word substitutions Although every attempt has been made by the provider to proofread this document, occasional misspellings and typographical errors may still be present Due to the previous pandemic, and the use of personal protective equipment (PPE) This may decrease voice recognition accuracy Inadvertent professor of journalism errors may occuras Plan Of Treatment Pending [...] LIPID PANEL, STANDARD 09/21/2024 LIPID PANEL, STANDARD 03/24/2023 COMPREHENSIVE METABOLIC PANEL 09/21/2024 COMPREHENSIVE METABOLIC [...] 09/21/2024 URINALYSIS, COMPLETE 02/04/2022 URINALYSIS, COMPLETE 06/20/2021 URINALYSIS, [...] Details Provider Name:ESTELITA FRANCO, 08/15/2025 03:30:00 PM, [address] [place] [address], [place], [address], Insurance Providers Payer Name Payer Address Payer Phone Subscriber Number Group Number Insured Name Patient Relationship to Insured Coverage Start Date Coverage End Date [facility] [address] [place] [address] [phone] [id number] DANIELLE LOUIS Self - patient is the [...]
--- OUTSIDE RECORDS SUMMARY | 2025-07-17 16:43 | XMS_ITS | Encounter Summary ---
Author Organization [facility] Address [address] [facility] [address] [place] [phone] Phone Care Team Providers Care Paper Products Supervisor Name Role Phone Pcp, Not Required Primary Care Provider Debbiea nia Encounter Details Date Type Department Care Team (Late st Contact Info) Description 04/01/2023 Procedure Pass [facility] MAIN PERIOP DEPT [address] [place] [id number] Social History Tobacco Use Types Packs/Day Years [...] on filedocumented in this encounter Care Teams Paper Products Supervisor Relationship Specialty Start Date End Date Pcp, Not Required [address] [place] [id number] PCP - General 11/17/22 documented as of this encounter Additional Source Comments The information contained in this document represents components of the legal health record. It is not the complete legal health record.[facility]
--- OUTSIDE RECORDS SUMMARY | 2025-07-17 16:43 | XMS_ITS | Clinical Summary ---
Author Organization [facility] Address [address] [place] [address] Care Team Providers Care Aging Box Hand Name Role Phone Juancarlos Phoenix MD Primary Care Provider + [phone] Allergies Active Allergy Reactions Criticality Noted Date [...] age to complete this topic Care Teams Aging Box Hand Relationship Specialty Start Date End Date Juancarlos Phoenix MD [address] [place] [address] PCP - General Internal Medicine 04/05/18
--- OUTSIDE RECORDS SUMMARY | 2025-07-17 16:43 | XMS_ITS | Clinical Summary ---
Author Organization [facility] Address [address] [place] [address] Phone Care Team Providers Care Assembler Caterpillar Spider Name Role Phone Juancarlos Phoenix MD Primary Care Provider Allergies Active Allergy Reactions Criticality Noted Date [...] mouth 2 (two) times a day. Active Encounters Date Type Department Care Team Description 06/30/2025 Telephone [facility] Hematology Oncology [address] [place] [phone] Jacquelyn Simons MA from Last 3 Months Social History Tobacco Use Types Packs/Day Years [...] Description 08/22/2025 3:45 PM EST Office Visit [facility] Hematology Oncology [address] [place] [phone] Geremias Moe MD [address] [place] [address] Health Maintenance Due Date Last Done Comments [...] LAB CHEMISTRY METHOD 01/13/2025 12:35 PM EDT [facility] Triglycerides 154(H) 0 - 150 mg/dL LAB CHEMISTRY METHOD 01/13/2025 12:35 PM EDT [facility] HDL 38(L) >=40 mg/dL LAB CHEMISTRY METHOD 01/13/2025 12:35 PM EDT [facility] LDL Calculated 88 0 - 100 mg/dL LAB CHEMISTRY METHOD 01/13/2025 12:35 PM EDT [facility] VLDL Cholesterol Basil 30.8 mg/dL LAB CHEMISTRY METHOD 01/13/2025 12:35 PM EDT [facility] Non HDL Chol. (LDL+VLDL) 119 <145 mg/dL LAB CHEMISTRY METHOD 01/13/2025 12:35 PM EDT [facility] Chol/HDL Ratio 4.1 0.0 - 4.4 LAB CHEMISTRY METHOD 01/13/2025 12:35 PM T [facility] Blood Venous blood specimen / Unknown Venipuncture / Unknown 01/13/2025 8:41 AM EDT 01/13/2025 12:12 PM EDT us Livia Burns PROJECT MANAGER FINANCE LAB BLOOD ORDERABLES Final Re sult [facility] [address] [place] [address], * (ABNORMAL) Comprehensive metabolic panel (01/13/2025 8:41 AM EDT) Pathologist [facility] Sodium 141 133 - 145 mmol/L LAB CHEMISTRY METHOD 01/13/2025 12:35 PM EDT [facility] Potassium 4.1 3.5 - 5.5 mmol/L LAB [facility] Chloride 107 96 - 110 mmol/L LAB CHEMISTRY METHOD 01/13/2025 12:35 PM [facility] CO2 27 21 - 32 mmol/L LAB CHEMISTRY METHOD 01/13/2025 12:35 PM [facility] Anion Gap 7 3 - 11 LAB CHEMISTRY METHOD 01/13/2025 12:35 PM [facility] Glucose 116(H) 70 - 100 mg/dL LAB CHEMISTRY METHOD 01/13/2025 12:35 PM [facility] BUN 17 5 - 25 mg/dL LAB CHEMISTRY METHOD 01/13/2025 12:35 PM [facility] Creatinine 0.99 0.70 - 1.30 mg/dL LAB CHEMISTRY METHOD 01/13/2025 12:35 PM [facility] eGFR 86 >=60 mL/min/1. 73m2 LAB CHEMISTRY METHOD 01/13/2025 12:35 PM [facility] Comment:Calculation based on the Chronic Kidney Disease Epidemiology Collaboration (CKD-EPI) equation refit without adjustment for race. BUN/Creatinine Ratio 17.2 LAB CHEMISTRY METHOD 01/13/2025 12:35 PM [facility] Calcium 9.8 8.5 - 10.5 mg/dL LAB CHEMISTRY METHOD 01/13/2025 12:35 PM [facility] AST (SGOT) 27 10 - 42 unit/L LAB CHEMISTRY METHOD 01/13/2025 12:35 PM [facility] ALT (SGPT) 49 10 - 60 unit/L LAB CHEMISTRY METHOD 01/13/2025 12:35 PM [facility] Alkaline Phosphatase 83 42 - 121 unit/L LAB CHEMISTRY METHOD 01/13/2025 12:35 PM [facility] Total Protein 7.4 6.0 - 8.0 g/dL LAB CHEMISTRY METHOD 01/13/2025 12:35 PM [facility] Albumin 4.0 3.2 - 5.0 g/dL LAB CHEMISTRY METHOD 01/13/2025 12:35 PM EDT [facility] Total Bilirubin 0.7 0.0 - 1.4 mg/dL LAB CHEMISTRY METHOD 01/13/2025 12:35 PM EDT [facility] Blood Venous blood specimen / Unknown Venipuncture / Unknown 01/13/2025 8:41 AM EDT 01/13/2025 12:12 PM EDT us Livia Burns PROJECT MANAGER FINANCE LAB BLOOD ORDERABLES Final Re sult [facility] [address] [place] [address], from Last 3 Months or Most Recently Relevant to Health Maintenance Insurance [facility] ([facility] Care Teams Assembler Caterpillar Spider Relationship Specialty Start Date End Date Juancarlos Phoenix MD [address] [place] [address] PCP - General Internal Medicine 04/05/18
== END 2025-07-17 15:35 | disposition home or self-care (01) ==
LOC: HO.HMGAL 15:34
PROVIDERS: PCP Internal Medicine; Visit Provider Registered Nurse Emergency
DX: J30.89 Other allergic rhinitis (principal)
CPT/HCPCS: 95117; 95165

== ENCOUNTER 2025-08-14 16:06 | Outpatient (AMB) | payer BC, SELFPAY ==
--- OUTSIDE RECORDS SUMMARY | 2022-07-07 23:00 | XMS_ITS | Encounter Summary ---
Author Organization [facility] Address [address] [facility] [address] [place] [address] Phone Care Team Providers Care Event Staff Member Name Role Phone Unavailable Primary Care Provider Unavailabl e Encounter Details Date Type Department Care Team (Late st Contact Info) Description 07/08/2022 Hospital Encounter [facility] [address] [place] [address] Howard Quintana MD [address] [place] [phone] [email or web address] [facility] Social History Tobacco Use Types Packs/Day Years Used Date Smoking Tobacco: Never Smokeless Tobacco: Never Alcohol Use Standard Drinks/Week Comments Yes 0 (1 standard drink = 0.6 oz pur e alcohol) 3-4 a month Education Answer Date Recorded Are you interested in more education? Not on hector e 01/10/2023 Are you concerned about learning? Not on file 01/10/2023 No 01/10/2023 No 01/10/2023 Digital Access Answer Date Recorded No 02/08/2023 No 02/08/2023 Reliable internet access at home? Not on file 02/08/2023 Device with a working camera? Not on file Intimate Partner Violence Answer Date R ecorded Are you denied basic needs s uch as food, clothing, or medical care? No 04/01/2023 In the past 12 months have y ou been in a relationship with a person who hurts, threatens, or tries to control you? No 04/01/2023 Are you denied basic needs s uch as food, clothing, or medical care? No 04/01/2023 In the past 12 months have y ou been in a relationship with a person who hurts, threatens, or tries to control you? No 04/01/2023 Sex and Gender Information Value Date Recorded Sex Assigned at Not on file Legal Sex Male 7:44 AM EST Gender Identity Not on file Sexual Orientation Not on file documented as of this encounter Plan of Treatment Not on file documented as of this encounter Procedures Procedure Name Priority Date/Time Associated Diagnosis Comments CT FACE OUTSIDE (NO INTERPRETATION) Routine 07/08/2022 12:00 AM EDT documented in this encounter Results * CT Face Outside (No Interpretation) (07/08/2022 12:00 AM EDT) Narrative [facility] - 12/10/2022 9:31 AM EDT This study is for PACS storage only and not for interpretation. us Howard Quintana MD IMG OUTSIDE IMAGING W/OUT I NTERPRETATION Final Result [facility] documented in this encounter Visit Diagnoses Not on filedocumented in this encounter Additional Source Comments The information contained in this document represents components of the legal health record. It is not the complete legal health record.[facility]
--- OUTSIDE RECORDS SUMMARY | 2025-08-14 18:39 | XMS_ITS | Clinical Summary ---
Author Organization [facility] Address [address] [place] [address] Phone Care Team Providers Care Vice President Of Customer Service Name Role Phone Juancarlos Phoenix MD Primary [...] Encounters Date Type Department Care Team Description 08/07/2025 8:45 AM EST Lab Draw Station - [facility] [address] [phone] Polycythemia 06/30/2025 Telephone [facility] Hematology Oncology [address] [place] [phone] Jacquelyn Simons MA from Last 3 Months [...] Description 08/22/2025 3:45 PM EST Office Visit [facility] Hematology Oncology [address] [place] [phone] Geremias Moe MD [address] [place] [address] Health Maintenance Due Date Last Done Comments [...] Procedure Name Priority Date/Time Associated Diagnosis Comments CBC WITH AUTO DIFFERENTIAL Routine 08/07/2025 8:44 AM EST Polycythemia ERYTHROPOIETIN Routine 08/07/2025 8:44 AM EST Polycythemia IRON AND TIBC Routine 08/07/2025 8:44 AM EST Polycythemia FERRITIN Routine 08/07/2025 8:44 AM EST Polycythemia CBC AND DIFFERENTIAL Routine 08/07/2025 8:44 AM EST Polycythemia COMPREHENSIVE METABOLIC PANEL Routine 01/13/2025 8:41 AM EDT 3-oxo-5 alpha-steroid delta 4-dehydrogenase deficiency LIPID PANEL WITH REFLEX TO DIRECT LDL Routine 01/13/2025 8:41 AM EDT 3-oxo-5 alpha-steroid delta 4-dehydrogenase deficiency from Last 3 Months or Most Recently Relevant to Health Maintenance Results * (ABNORMAL) CBC auto differential (08/07/2025 8:44 AM EST) [facility] WBC 5.4 4.8 - 10.8 K/mcL LAB HEMETOLOGY METHOD 08/07/2025 11:54 AM [facility] RBC 5.30 4.50 - 5.50 M/mcL LAB HEMETOLOGY METHOD 08/07/2025 11:54 AM [facility] Hemoglobin 17.1 13.5 - 17.5 g/dL LAB HEMETOLOGY METHOD 08/07/2025 11:54 AM [facility] Hematocrit 50.0 42.0 - 54.0 % LAB HEMETOLOGY METHOD 08/07/2025 11:54 AM [facility] MCV 94.7 79.0 - 98.0 FL LAB HEMETOLOGY METHOD 08/07/2025 11:54 AM [facility] MCH 32.4(H) 27.0 - 32.0 pcg LAB HEMETOLOGY METHOD 08/07/2025 11:54 AM [facility] MCHC 34.2 32.0 - 37.0 g/dL LAB HEMETOLOGY METHOD 08/07/2025 11:54 AM [facility] RDW 12.2 11.0 - 15.0 % LAB HEMETOLOGY METHOD 08/07/2025 11:54 AM [facility] Platelets 287 130 - 400 K/mcL LAB HEMETOLOGY METHOD 08/07/2025 11:54 AM [facility] MPV 9.5 7.0 - 11.0 FL LAB HEMETOLOGY METHOD 08/07/2025 11:54 AM [facility] NRBC 0.0 <1.0 % LAB HEMETOLOGY METHOD 08/07/2025 11:54 AM [facility] NRBC Absolute 0.00 <0.10 K/mcL LAB HEMETOLOGY METHOD 08/07/2025 11:54 AM [facility] Neutrophils Relative 44.2 % LAB HEMETOLOGY METHOD 08/07/2025 11:54 AM [facility] Lymphocytes Relative 42.4 % LAB HEMETOLOGY METHOD 08/07/2025 11:54 AM [facility] Monocytes Relative 9.2 % LAB HEMETOLOGY METHOD 08/07/2025 11:54 AM [facility] Eosinophils Relative 3.3 % LAB HEMETOLOGY METHOD 08/07/2025 11:54 AM [facility] Basophils Relative 0.9 % LAB HEMETOLOGY METHOD 08/07/2025 11:54 AM [facility] Immature Granulocytes Relative 0.0 % LAB HEMETOLOGY METHOD 08/07/2025 11:54 AM [facility] Neutrophils Absolute 2.39 1.50 - 7.00 K/mcL LAB HEMETOLOGY METHOD 08/07/2025 11:54 AM [facility] Lymphocytes Absolute 2.30 1.00 - 5.00 K/mcL LAB HEMETOLOGY METHOD 08/07/2025 11:54 AM [facility] Monocytes Absolute 0.50 0.20 - 1.00 K/mcL LAB HEMETOLOGY METHOD 08/07/2025 11:54 AM EST [facility] Eosinophils Absolute 0.18 0.00 - 0.50 K/mcL LAB HEMETOLOGY METHOD 08/07/2025 11:54 AM EST [facility] Basophils Absolute 0.05 0.00 - 0.20 K/mcL LAB HEMETOLOGY METHOD 08/07/2025 11:54 AM EST [facility] Immature Granulocytes Absolute 0.00 0.00 - 0.03 K/mcL LAB HEMETOLOGY METHOD 08/07/2025 11:54 AM EST [facility] Blood Venous blood specimen / Unknown Venipuncture / Unknown 08/07/2025 8:44 AM EST 08/07/2025 11:33 AM EST Geremias Moe MD LAB BLOOD ORDERABLES Final R esult [facility]) [facility] [address] [place] [address], * Erythropoietin (08/07/2025 8:44 AM EST) [facility] Erythropoietin 11.6 2.6 - 18.5 mIU/mL 08/09/2025 1:15 PM EST [facility] Comment: Test performed at [facility], [address] , [place] [address] Brenda Becerra MD, PhD - Office Services Specialist Blood Venous blood specimen / Unknown Venipuncture / Unknown 08/07/2025 8:44 AM EST 08/07/2025 11:37 AM EST Geremias Moe MD LAB BLOOD ORDERABLES Final R esult [facility] [address] [place] [address] * (ABNORMAL) Iron and TIBC (08/07/2025 8:44 AM EST) [facility] Iron 184(H) 50 - 160 mcg/dL 08/07/2025 12:02 PM EST [facility] TIBC 406 250 - 450 mcg/dL 08/07/2025 12:02 PM EST [facility] Iron Saturation 45 20 - 50 % 12:02 PM EST [facility] Blood Venous blood specimen / Unknown Venipuncture / Unknown 08/07/2025 8:44 AM EST 08/07/2025 11:37 AM EST us Geremias Moe MD LAB BLOOD ORDERABLES Final R esult Performing Organization Address City/[facility]/ZIP Co de Phone Number [facility] [address] [place] [address], [place] [phone] * Ferritin (08/07/2025 8:44 AM EST) Pathologist [facility] Ferritin 58 11 - 307 ng/mL 08/07/2025 11:59 AM EST [facility] Blood Venous blood specimen / Unknown Venipuncture / Unknown 08/07/2025 8:44 AM EST 08/07/2025 11:37 AM EST us Geremias Moe MD LAB BLOOD ORDERABLES Final R esult [facility] [address] [place] [address], [place] [phone] * (ABNORMAL) Lipid panel with reflex to direct LDL (01/13/2025 8:41 AM EDT) [facility] Cholesterol 157 0 - 200 mg/dL LAB CHEMISTRY METHOD 01/13/2025 12:35 PM EDT [facility] Triglycerides 154(H) 0 - 150 mg/dL LAB CHEMISTRY METHOD 01/13/2025 12:35 PM EDT [facility] HDL 38(L) >=40 mg/dL LAB CHEMISTRY METHOD 01/13/2025 12:35 PM EDT [facility] LDL Calculated 88 0 - 100 mg/dL LAB CHEMISTRY METHOD 01/13/2025 12:35 PM EDT [facility] VLDL Cholesterol Basil 30.8 mg/dL LAB CHEMISTRY METHOD 01/13/2025 12:35 PM EDT [facility] Non HDL Chol. (LDL+VLDL) 119 <145 mg/dL LAB CHEMISTRY METHOD 01/13/2025 12:35 PM EDT [facility] Chol/HDL Ratio 4.1 0.0 - 4.4 LAB CHEMISTRY METHOD 01/13/2025 12:35 PM T [facility] Blood Venous blood specimen / Unknown Venipuncture / Unknown 01/13/2025 8:41 AM EDT 01/13/2025 12:12 PM EDT us Livia Burns YARN POLISHING MACHINE OPERATOR LAB BLOOD ORDERABLES Final Re sult [facility] [address] [place] [address], * (ABNORMAL) Comprehensive metabolic panel (01/13/2025 8:41 AM EDT) Sodium 141 133 - 145 mmol/L LAB CHEMISTRY METHOD 01/13/2025 12:35 PM [facility] Potassium 4.1 3.5 - 5.5 mmol/L LAB CHEMISTRY METHOD 01/13/2025 12:35 PM [facility] Chloride 107 96 - 110 mmol/L LAB CHEMISTRY METHOD 01/13/2025 12:35 PM [facility] CO2 27 21 - 32 mmol/L LAB CHEMISTRY METHOD 01/13/2025 12:35 PM [facility] Anion Gap 7 3 - 11 LAB CHEMISTRY METHOD 01/13/2025 12:35 PM T [facility] Glucose 116(H) 70 - 100 mg/dL LAB CHEMISTRY METHOD 01/13/2025 12:35 PM [facility] BUN 17 5 - 25 mg/dL LAB CHEMISTRY METHOD 01/13/2025 12:35 PM [facility] Creatinine 0.99 0.70 - 1.30 mg/dL LAB CHEMISTRY METHOD 01/13/2025 12:35 PM [facility] eGFR 86 >=60 mL/min/1. 73m2 LAB CHEMISTRY METHOD 01/13/2025 12:35 PM [facility] Comment:Calculation based on the Chronic Kidney Disease Epidemiology Collaboration (CKD-EPI) equation refit without adjustment for race. BUN/Creatinine Ratio 17.2 LAB CHEMISTRY METHOD 01/13/2025 12:35 PM [facility] Calcium 9.8 8.5 - 10.5 mg/dL LAB CHEMISTRY METHOD 01/13/2025 12:35 PM [facility] AST (SGOT) 27 10 - 42 unit/L LAB CHEMISTRY METHOD 01/13/2025 12:35 PM [facility] ALT (SGPT) 49 10 - 60 unit/L LAB CHEMISTRY METHOD 01/13/2025 12:35 PM [facility] Alkaline Phosphatase 83 42 - 121 unit/L LAB CHEMISTRY METHOD 01/13/2025 12:35 PM [facility] Total Protein 7.4 6.0 - 8.0 g/dL LAB CHEMISTRY METHOD 01/13/2025 12:35 PM [facility] Albumin 4.0 3.2 - 5.0 g/dL LAB CHEMISTRY METHOD 01/13/2025 12:35 PM [facility] Total Bilirubin 0.7 0.0 - 1.4 mg/dL LAB CHEMISTRY METHOD 01/13/2025 12:35 PM [facility] Blood Venous blood specimen / Unknown Venipuncture / Unknown 01/13/2025 8:41 AM EDT 01/13/2025 12:12 PM EDT us Livia Burns YARN POLISHING MACHINE OPERATOR LAB BLOOD ORDERABLES Final Re sult [facility] [address] [place] [address], from Last 3 Months or Most Recently Relevant to Health Maintenance Insurance [facility]) Care Teams Vice President Of Customer Service Relationship Specialty Start Date End Date Juancarlos Phoenix MD [address] [place] [address] PCP - General Internal Medicine 04/05/18
--- OUTSIDE RECORDS SUMMARY | 2025-08-14 18:39 | XMS_ITS | Clinical Summary ---
Author Organization [facility] Address [address] [address] Phone Care Team Providers Care Forest Manager Name Role Phone Pcp, Not Required Primary [...] by mouth every evening. 3 Active omega 4-AVV-ZFE-fish oil (FISH OIL) 60-90-500 mg capsule 1 [...] this topic Medical Devices Implanted Type Area Model And Mold Maker Plaster Device Identifier Shelf Expiration Date Model / Serial / Lot Prosthetic Joint Prosthetic Joint Knee Dental Insurance BLUE CROSS OUT OF STATE PPO BLUE [employer]OSS OUT OF STATE PPO BLUE CROSS OUT OF STATE PPO BLUE [employer]OSS OUT OF STATE PPO BL[employer] OUT OF STATE PPO BLUE [employer] OUT OF STATE PPO Care Teams Forest Manager Relationship Specialty Start Date End Date Pcp, Not Required [address] [place] [address] PCP - General 11/17/22 Additional Source Comments The information contained in this document represents components of the legal health record. It is not the complete legal health record.[facility]
--- OUTSIDE RECORDS SUMMARY | 2025-08-14 18:39 | XMS_ITS | Encounter Summary ---
Author Organization [facility] Address [address] [facility] [address] [place] [phone] Phone Care Team Providers Care Manager Of Business Name Role Phone Pcp, Not Required Primary Care Provider Debbiea nia Encounter Details Date Type Department Care Team (Late st Contact Info) Description 04/01/2023 Procedure Pass [facility] MAIN PERIOP DEPT [address] [place] [id number] Social History Tobacco Use Types Packs/Day Years [...] on filedocumented in this encounter Care Teams Manager Of Business Relationship Specialty Start Date End Date Pcp, Not Required [address] [place] [id number] PCP - General 11/17/22 documented as of this encounter Additional Source Comments The information contained in this document represents components of the legal health record. It is not the complete legal health record.[facility]
--- OUTSIDE RECORDS SUMMARY | 2025-08-14 18:39 | XMS_ITS | Clinical Summary ---
Author Organization [facility] Address [address] [place] [address] Care Team Providers Care Professor Of Physics Name Role Phone Juancarlos Phoenix MD Primary Care Provider + [phone] Allergies Active Allergy Reactions Criticality Noted Date [...] age to complete this topic Care Teams Professor Of Physics Relationship Specialty Start Date End Date Juancarlos Phoenix MD [address] [place] [address] PCP - General Internal Medicine 04/05/18
== END 2025-08-14 16:07 | disposition home or self-care (01) ==
LOC: HO.HMGAL 16:06
PROVIDERS: PCP Internal Medicine; Visit Provider Registered Nurse Emergency
DX: J30.89 Other allergic rhinitis (principal)
CPT/HCPCS: 95117; 95165